=== PATIENT | female | born 1980 | race Asian ===

== ENCOUNTER 2016-06-16 04:15 | Emergency (ER) | payer SELFPAY ==
[~2016-06-16] VITALS: Ht 165.1 cm; Wt 75.7 kg
[~2016-06-16 04:15] MED LIST: AMOX TR-K CLV1 EAC2 ORAL; ATENOLOL25 MG ORAL; METFORMIN HCL500 M1 ORAL; ZESTORETIC 10-1 EAC1 PO
--- NOTE | 2016-06-16 04:37 | Emergency Room Report ---
History of Present Illness General Chief Complaint: Abdominal Pain Source: Patient Present Illness HPI Is a 36-year-old female with no significant past medical history. She presents chief complaint of right lower quadrant abdominal pain. Onset for last week but has been on and off and mouth. Tonight it became very severe. Pain is 10 out of 10 pain worse with movement. No fever or chills. No nausea no vomiting. No diarrhea. No radiation. Never had this problem before. She just started her menstrual flow. Allergies: Coded Allergies: SUMATRIPTAN (Verified Allergy, Unknown, 11/09/15) Patient History Past Medical History: see triage record, old chart reviewed Past Surgical History: none Pertinent Family History: none Last Menstrual Period: 4 days ago Now: No Immunizations: other Reviewed Nursing Documentation: PMH: Agreed, PSxH: Agreed Nursing Documentation-PMH Hx Hypertension: Yes Hx Diabetes: Yes Hx Neurological Problems: Yes - migraine Review of Systems Eye: Denies: blurred vision, eye pain ENT: Denies: ear pain, nose congestion, throat swelling Respiratory: Denies: cough, shortness of breath Cardiovascular: Denies: chest pain, palpitations Gastrointestinal: Reports: abdominal pain, Denies: diarrhea, nausea, vomiting Musculoskeletal: Denies: back pain, joint pain Skin: Denies: rash Neurological: Denies: headache, numbness Endocrine: Denies: increased thirst, increased urine Hematologic/Lymphatic: Denies: easy bruising All Other Systems: negative except mentioned in HPI Physical Exam Vital Signs Date Time Temp Pulse Resp B/P Pulse Ox O2 Delivery O2 Flow Rate FiO2 06/16/16 04:19 100.6 113 16 149/91 98 Room Air vitals with fever and tachycardia Sp02 EP Interpretation: reviewed, normal General Appearance: well appearing, alert, moderate distress - From pain Head: normocephalic, atraumatic Eyes: bilateral eye EOMI, bilateral eye PERRL ENT: hearing grossly normal, normal pharynx Neck: full range of motion, supple, no meningismus Respiratory: chest non-tender, lungs clear, normal breath sounds Cardiovascular #1: regular rate, rhythm, no murmur Gastrointestinal: normal bowel sounds, no mass, no organomegaly, no bruit, non- distended, tenderness - Right lower quadrant Musculoskeletal: back normal, gait/station normal, normal range of motion Neurologic: alert, oriented x3 Psychiatric: mood/affect normal Skin: warm/dry Medical Decision Making Diagnostic Impression: Primary Impression: Right pyosalpingitis Additional Impression: Hyperglycemia due to type 2 diabetes mellitus Qualified Codes: E11.65 - Type 2 diabetes mellitus with hyperglycemia ER Course Patient presents with abdominal pain. Pain better after Toradol and morphine. CT scan is still pending. She does have a white count. This may be secondary to infection versus stress response from pain. She said that her A1c was around 11 in February. She's been off of her metformin glipizide since then. She just got the prescription to start back on it yesterday. She said that she ate some marshmallow before coming in. Patient said that she has a history of ovarian torsion the right eye before. This lead to 3 times a day and she was admitted for sepsis at [facility]. She denies any discharge. Wide spectrum antibiotics given. I paged Dr. Herr for consultation. Laboratory Tests Test 06/16/16 04:40 White Blood Count 17.2 K/UL (4.8-10.8) H Red Blood Count 4.61 M/UL (4.20-5.40) Hemoglobin 11.3 G/DL (12.0-16.0) L Hematocrit 34.9 % (37.0-47.0) L Mean Corpuscular Volume 76 FL (80-99) L Mean Corpuscular Hemoglobin 24.4 PG (27.0-31.0) L Mean Corpuscular Hemoglobin Concent 32.3 G/DL (32.0-36.0) Red Cell Distribution Width 15.0 % (11.6-14.8) H Platelet Count 399 K/UL (150-450) Mean Platelet Volume 6.3 FL (6.5-10.1) L Neutrophils (%) (Auto) 73.6 % (45.0-75.0) Lymphocytes (%) (Auto) 18.9 % (20.0-45.0) L Monocytes (%) (Auto) 6.7 % (1.0-10.0) Eosinophils (%) (Auto) 0.4 % (0.0-3.0) Basophils (%) (Auto) 0.5 % (0.0-2.0) Urine Color Yellow Urine Appearance Slightly cloudy Urine pH 5 (4.5-8.0) Urine Specific [place] 1.015 (1.005-1.035) Urine Protein 2+ (NEGATIVE) H Urine Glucose (UA) 4+ (NEGATIVE) H Urine Ketones 1+ (NEGATIVE) H Urine Occult Blood 5+ (NEGATIVE) H Urine Nitrite Negative (NEGATIVE) Urine Bilirubin Negative (NEGATIVE) Urine Urobilinogen 1 MG/DL (0.0-1.0) H Urine Leukocyte Esterase 1+ (NEGATIVE) H Urine RBC Tntc /HPF (0 - 2) H Urine WBC 0-2 /HPF (0 - 2) Urine Squamous Epithelial Cells Moderate /LPF (NONE/OCC) H Urine Bacteria None /HPF (NONE) Urine HCG, Qualitative Negative Sodium Level 138 mEQ/L (135-145) Potassium Level 4.1 mEQ/L (3.4-4.9) Chloride Level 98 mEQ/L (98-107) Carbon Dioxide Level 23 mEQ/L (20-30) Anion Gap 17 (5-15) H Blood Urea Nitrogen 14 mg/dL (7-23) Creatinine 0.6 mg/dL (0.5-0.9) Estimat Glomerular Filtration Rate > 60 mL/min (>60) Glucose Level 333 mg/dL (74-106) H Calcium Level 9.2 mg/dL (8.6-10.2) Total Bilirubin 0.2 mg/dL (0.0-1.2) Aspartate Amino Transf (AST/SGOT) 13 U/L (5-40) Alanine Aminotransferase (ALT/SGPT) 15 U/L (3-33) Alkaline Phosphatase 105 U/L (35-104) H Total Protein 6.9 g/dL (6.6-8.7) Albumin 3.4 g/dL (3.5-5.2) L Globulin 3.5 g/dL Albumin/Globulin Ratio 0.9 (1.0-2.7) L Lipase 27 U/L (< 60) Lab Results Impression labs with leukocytosis CT/MRI/US Diagnostic Results CT/MRI/US Diagnostic Results : Imaging Test Ordered: CT abd and pelvis Impression Read by radiologist: Probable acute right pyosalpinx: The dilated, fluid-filled right fallopian tube measures up to approximately 3 cm in diameter, with mild wall thickening and hyperenhancement, and mild surrounding right pelvic fat stranding. INCIDENTAL: Unremarkable appendix; oval left ovarian cyst, measuring up to 3.6 cm; scar. Last Vital Signs Date Time Temp Pulse Resp B/P Pulse Ox O2 Delivery O2 Flow Rate FiO2 06/16/16 04:19 100.6 113 16 149/91 98 Room Air Status: improved Disposition: HOME, SELF-CARE Condition: Stable Scripts Hydrocodone/Acetaminophen 5-325* (HYDROCODONE/ACETAMINOPHEN 5-325*) 1 Each Tablet 1 TAB ORAL Q6H Y for For Pain, #20 TAB 0 Refills Prov: JOSEMANUEL ULRICH M.D. 06/16/16 Metronidazole* (FLAGYL*) 500 Mg Tablet 500 MG ORAL THREE TIMES A DAY, #42 TAB Prov: JOSEMANUEL ULRICH M.D. 06/16/16 Doxycycline Monohydrate* (DOXYCYCLINE MONOHYDRATE*) 100 Mg Capsule 100 MG ORAL Q12H, #28 CAP 0 Refills Prov: JOSEMANUEL ULRICH M.D. 06/16/16 Additional Instructions: Followup with your Dr. in one to 2 days. Return for fever, chills, nausea, vomiting, worsening pain. Return if you are not better in 12-24 hours. JOSEMANUEL ULRICH M.D. Jun 16, 2016 04:37
[2016-06-16] MEDS ORDERED: Ketorolac 30mg Inj IV ONE (04:45)
[2016-06-16] MEDS ORDERED: Morphine Sulfate 4mg/ml Inj IVP ONE ×2 (04:45→06:45)
[2016-06-16 04:46] VITALS: BP 159/104
[2016-06-16 04:49] LABS: APPEARANCE,URINE SLIGHTLY CLOUDY; KETONES,URINE 1+ (NEGATIVE); LEUKOCYTE ESTERASE ,URINE 1+ (NEGATIVE); NITRITE,URINE NEGATIVE (NEGATIVE); PH,URINE 5 (4.5-8.0); PROTEIN,URINE 2+ (NEGATIVE); UROBILINOGEN,URINE 1 MG/DL (0.0-1.0)
[2016-06-16 04:58] LABS: RBC,URINE TNTC /HPF (0 - 2); SQUAMOUS EPITHELIAL CELL,UR MODERATE /LPF (NONE/OCC); WBC,URINE 0-2 /HPF (0 - 2)
[2016-06-16 05:02] LABS: BASOPHILS % (AUTO) 0.5 % (0.0-2.0); EOSINOPHILS % (AUTO) 0.4 % (0.0-3.0); LYMPHOCYTES % (AUTO) 18.9 % (20.0-45.0); MEAN CORPUSCULAR HEMOGLOBIN 24.4 PG (27.0-31.0); MEAN CORPUSCULAR HGB CONC 32.3 G/DL (32.0-36.0); MEAN CORPUSCULAR VOLUME 76 FL (80-99); MEAN PLATELET VOLUME 6.3 FL (6.5-10.1); MONOCYTES % (AUTO) 6.7 % (1.0-10.0); NEUTROPHILS % (AUTO) 73.6 % (45.0-75.0); PLATELET COUNT 399 K/UL (150-450); RED BLOOD COUNT 4.61 M/UL (4.20-5.40); WHITE BLOOD COUNT 17.2 K/UL (4.8-10.8)
[2016-06-16 05:08] LABS: ALANINE AMINOTRANSFERASE 15 U/L (3-33); ALBUMIN/GLOBULIN RATIO 0.9 (1.0-2.7); ANION GAP 17 (5-15); ASPARTATE AMINO TRANSFERASE 13 U/L (5-40); CALCIUM 9.2 mg/dL (8.6-10.2); CARBON DIOXIDE 23 mEQ/L (20-30); CHLORIDE 98 mEQ/L (98-107); CREATININE 0.6 mg/dL (0.5-0.9); GLOMERULAR FILTRATION RATE > 60 mL/min (>60); HEMOLYSIS 2; LIPASE 27 U/L (< 60); POTASSIUM 4.1 mEQ/L (3.4-4.9); SODIUM 138 mEQ/L (135-145); TOTAL PROTEIN 6.9 g/dL (6.6-8.7)
[2016-06-16 05:58] VITALS: BP 149/94
[2016-06-16] MEDS ORDERED: Zosyn 3.375gm inj ONE (06:38)
[2016-06-16] MEDS ORDERED: HYDROCODON-ACE1 EA15 ORAL (06:42)
[2016-06-16] MEDS ORDERED: METRONIDAZOLE500 MG ORAL (06:42)
[2016-06-16] MEDS ORDERED: DOXYCYCLINE MO100 MG ORAL (06:42)
[2016-06-16] MEDS ORDERED: metroNIDAZOLE 500mg tab ORAL ONE (06:45)
[2016-06-16] MEDS ORDERED: Piperacillin/Tazobactam 3.375 GM in NS 110 ML IVPB ONE (06:45)
[2016-06-16] MEDS ORDERED: NORCO 10-325 T1 EACH ORAL (07:19)
[2016-06-16 07:23] VITALS: BP 159/98
[2016-06-16 07:45] VITALS: BP 159/98
--- NOTE | 2016-06-18 08:42 | Diagnostic Imaging Report ---
Indications: Right lower quadrant abdominal pain Technique: Continuous helical CT imaging of the abdomen and pelvis was performed with automatic exposure control following administration of nonionic IV contrast only, on a Siemens sensation [address] scanner. Axial, coronal, sagittal images were reconstructed at 5 mm slice thickness. No oral contrast was administered per requesting physician's order, despite no contraindications listed in either submitted clinical data or tech note.. CTDI volume(s): 17 mGy Total DLP: 871 mGy-cm Findings: Comparison: None Lack of oral contrast limits evaluation of gastrointestinal tract, nondilated throughout. Appendix contains some high attenuation material in its lumen, is otherwise unremarkable. No obvious mural thickening, adjacent stranding, extraluminal gas or fluid collections identified. Fluid-filled tubular structure is present in the right adnexal region and pelvic cul-de-sac, with mild mural enhancement, measuring up to 2.7 cm in diameter. Mild surrounding haziness. 3.3 cm circumscribed low attenuation/cystic structure left adnexal region. Gallbladder contracted, limiting evaluation. Liver, pancreas, spleen, adrenal glands, kidneys, unopacified ureters and urinary bladder, uterus, vascular structures, retroperitoneum, mesentery, remainder visualized abdominopelvic anatomy unremarkable. Small pleural-based linear densities in both lung bases. Disc space narrowing with marginal osteophyte formation lower thoracic spine. IMPRESSION: Unremarkable appendix aside from intraluminal contrast versus appendicolith-no evidence of acute appendicitis Right adnexal/cul-de-sac findings compatible with hydrosalpinx/pyosalpinx. NON DESTRUCTIVE TESTING INSPECTOR consultation recommended. Left adnexal cystic structure most likely physiologic ovarian. Consider pelvic ultrasound for further evaluation. Limited evaluation of gallbladder due to contraction, without obvious acute abnormality No other evidence of acute abdominopelvic disease, with limitation as described. Subtle but potentially significant abnormalities the gastrointestinal tract may be missed. Repeat CT scan with full oral and IV contrast preparation recommended for more complete evaluation, as clinically indicated This correlates with [facility] preliminary report.
== END 2016-06-16 07:45 | disposition home or self-care (01) ==
LOC: EMR 04:34 → CANBEDREQ 07:12 → EMR 07:45
DX: N70.91 Salpingitis, unspecified (principal); E11.65 Type 2 diabetes mellitus with hyperglycemia; I10 Essential (primary) hypertension; Z86.69 Personal history of other diseases of the nervous system and sense organs
CPT/HCPCS: 36415; 74177; 80053; 81003; 81025; 82962; 83690; 85025; 96360; 96374; 96375; 99284; J1885; J2270; J2405; J2543; Q9967

== ENCOUNTER 2016-09-07 08:31 | Inpatient (IN) | payer MEDICAID ==
[~2016-09-07] VITALS: Ht 165.1 cm; Wt 73.5 kg
[~2016-09-07 08:31] MED LIST changes: +DOXYCYCLINE MO100 MG ORAL; +HYDROCODON-ACE1 EA15 ORAL; +METRONIDAZOLE500 MG ORAL; +NORCO 10-325 T1 EACH ORAL
[2016-09-07 08:50] VITALS: BP 158/94
--- NOTE | 2016-09-07 08:53 | Emergency Room Report ---
History of Present Illness General Chief Complaint: Skin Rash/Abscess Source: Patient Present Illness HPI This patient states that she has a history of hydradenitis suppurativa. She states that she had some "pimples" on her face for the past few weeks. She states however over the past few days they have increased in size rapidly and become swollen and opened and. She states that the area on her right face and chin are very tender and painful. She denies fever or chills. She states she also fell down a few days ago and thinks she may have a lock in the skin of her hand. She has no other complaints. Allergies: Coded Allergies: SUMATRIPTAN (Verified Allergy, Unknown, 11/09/15) Patient History Past Medical History: see triage record, DM, HTN, migraines Social History: Reports: alcohol use, drug use - hx of drug use. States that she has stopped the drugs over the past couple weeks., smoking Last Menstrual Period: 08/16/16 Now: No : 4 Para: 2 Reviewed Nursing Documentation: PMH: Agreed, PSxH: Agreed Nursing Documentation-PMH Past Medical History: No History, Except For Hx Hypertension: Yes Hx Diabetes: Yes Hx Neurological Problems: Yes - migraine Review of Systems All Other Systems: negative except mentioned in HPI Physical Exam Vital Signs Date Time Temp Pulse Resp B/P Pulse Ox O2 Delivery O2 Flow Rate FiO2 09/07/16 08:36 97.7 111 20 162/99 100 Room Air Sp02 EP Interpretation: reviewed, normal General Appearance: no apparent distress, alert, GCS 15, non-toxic Head: normocephalic, atraumatic Eyes: bilateral eye PERRL, bilateral eye normal inspection ENT: hearing grossly normal, normal pharynx, no angioedema, normal voice Neck: full range of motion, supple/symm/no masses Respiratory: chest non-tender, lungs clear, normal breath sounds, speaking full sentences Cardiovascular #1: regular rate, rhythm, no edema Gastrointestinal: normal bowel sounds, non tender, soft, non-distended, no guarding, no rebound Rectal: deferred Musculoskeletal: back normal, gait/station normal, normal range of motion, other - R. wrist w/ erythema and small draining abscess on anterior R. wrist w/ mild surrounding erythema Neurologic: alert, oriented x3, responsive, motor strength/tone normal, sensory intact, speech normal Psychiatric: judgement/insight normal, memory normal, mood/affect normal, no suicidal/homicidal ideation Skin: normal color, warm/dry, well hydrated, other - Yellow crusting ulcers with swelling and erythema over R. lateral face and chin. Medical Decision Making Diagnostic Impression: Primary Impression: Facial cellulitis Additional Impression: Hand abscess ER Course This patient's facial cellulitis and a small hand cellulitis with a small pustule. The patient also is poorly controlled diabetes. Patient was given IV fluids and broad-spectrum antibiotics. The patient will need to be admitted for further IV antibiotics and further evaluation and treatment. Labs Test 09/07/16 08:30 09/07/16 09:30 Hemoglobin A1c 9.8 % (< 6.0) Triglycerides Level 87 mg/dL (< 150) Cholesterol Level 144 mg/dL (< 200) LDL Cholesterol 74 mg/dL (60-99) HDL Cholesterol 53 mg/dL (> 60) Cholesterol/HDL Ratio 2.7 (3.3-4.4) White Blood Count 13.4 K/UL (4.8-10.8) Red Blood Count 4.75 M/UL (4.20-5.40) Hemoglobin 11.5 G/DL (12.0-16.0) Hematocrit 37.1 % (37.0-47.0) Mean Corpuscular Volume 78 FL (80-99) Mean Corpuscular Hemoglobin 24.2 PG (27.0-31.0) Mean Corpuscular Hemoglobin Concent 31.0 G/DL (32.0-36.0) Red Cell Distribution Width 15.3 % (11.6-14.8) Platelet Count 388 K/UL (150-450) Mean Platelet Volume 6.3 FL (6.5-10.1) Neutrophils (%) (Auto) 76.3 % (45.0-75.0) Lymphocytes (%) (Auto) 16.5 % (20.0-45.0) Monocytes (%) (Auto) 5.3 % (1.0-10.0) Eosinophils (%) (Auto) 1.2 % (0.0-3.0) Basophils (%) (Auto) 0.6 % (0.0-2.0) Urine Color Pale yellow Urine Appearance Clear Urine pH 7 (4.5-8.0) Urine Specific [place] 1.010 (1.005-1.035) Urine Protein Negative (NEGATIVE) Urine Glucose (UA) 4+ (NEGATIVE) Urine Ketones Negative (NEGATIVE) Urine Occult Blood Negative (NEGATIVE) Urine Nitrite Negative (NEGATIVE) Urine Bilirubin Negative (NEGATIVE) Urine Urobilinogen Normal MG/DL (0.0-1.0) Urine Leukocyte Esterase 1+ (NEGATIVE) Urine RBC 2-4 /HPF (0 - 2) Urine WBC 2-4 /HPF (0 - 2) Urine Squamous Epithelial Cells Many /LPF (NONE/OCC) Urine Bacteria Few /HPF (NONE) Sodium Level 132 mEQ/L (135-145) Potassium Level 4.2 mEQ/L (3.4-4.9) Chloride Level 91 mEQ/L (98-107) Carbon Dioxide Level 27 mEQ/L (20-30) Anion Gap 14 (5-15) Blood Urea Nitrogen 17 mg/dL (7-23) Creatinine 0.6 mg/dL (0.5-0.9) Estimat Glomerular Filtration Rate > 60 mL/min (>60) Glucose Level 297 mg/dL (74-106) Lactic Acid Level 1.90 mmol/L (0.66-2.22) Calcium Level 9.1 mg/dL (8.6-10.2) Total Bilirubin 0.4 mg/dL (0.0-1.2) Aspartate Amino Transf (AST/SGOT) 12 U/L (5-40) Alanine Aminotransferase (ALT/SGPT) 16 U/L (3-33) Alkaline Phosphatase 171 U/L (35-104) Total Creatine Kinase 44 U/L (26-140) Creatine Kinase MB < 1.5 ng/mL (< 3.8) Creatine Kinase MB Relative Index Total Protein 7.4 g/dL (6.6-8.7) Albumin 3.8 g/dL (3.5-5.2) Globulin 3.6 g/dL Albumin/Globulin Ratio 1.0 (1.0-2.7) Last Vital Signs Date Time Temp Pulse Resp B/P Pulse Ox O2 Delivery O2 Flow Rate FiO2 09/07/16 08:36 97.7 111 20 162/99 100 Room Air Disposition: ADMITTED INPATIENT Condition: Serious JESSICA GRAMAJO D.O. Sep 07, 2016 08:53
[2016-09-07] MEDS ORDERED: NS 1000ml 2,200 ML IVLG ONE (09:15)
[2016-09-07] MEDS ORDERED: Vancomycin 1 GM in NS 275 ML IV ONE (09:15)
[2016-09-07] MEDS ORDERED: Vancomycin 1gm inj IVPB ONE (09:47)
[2016-09-07 09:55] LABS: BASOPHILS % (AUTO) 0.6 % (0.0-2.0); EOSINOPHILS % (AUTO) 1.2 % (0.0-3.0); LYMPHOCYTES % (AUTO) 16.5 % (20.0-45.0); MEAN CORPUSCULAR HEMOGLOBIN 24.2 PG (27.0-31.0); MEAN CORPUSCULAR VOLUME 78 FL (80-99); MEAN PLATELET VOLUME 6.3 FL (6.5-10.1); MONOCYTES % (AUTO) 5.3 % (1.0-10.0); NEUTROPHILS % (AUTO) 76.3 % (45.0-75.0); PLATELET COUNT 388 K/UL (150-450); RED BLOOD COUNT 4.75 M/UL (4.20-5.40); RED CELL DISTRIBUTION WIDTH 15.3 % (11.6-14.8); WHITE BLOOD COUNT 13.4 K/UL (4.8-10.8)
[2016-09-07 09:58] LABS: APPEARANCE,URINE CLEAR; KETONES,URINE NEGATIVE (NEGATIVE); LEUKOCYTE ESTERASE ,URINE 1+ (NEGATIVE); NITRITE,URINE NEGATIVE (NEGATIVE); PH,URINE 7 (4.5-8.0); PROTEIN,URINE NEGATIVE (NEGATIVE); UROBILINOGEN,URINE NORMAL MG/DL (0.0-1.0)
[2016-09-07 10:03] LABS: ALANINE AMINOTRANSFERASE 16 U/L (3-33); ANION GAP 14 (5-15); ASPARTATE AMINO TRANSFERASE 12 U/L (5-40); CALCIUM 9.1 mg/dL (8.6-10.2); CARBON DIOXIDE 27 mEQ/L (20-30); CHLORIDE 91 mEQ/L (98-107); CREATININE 0.6 mg/dL (0.5-0.9); GLOMERULAR FILTRATION RATE > 60 mL/min (>60); HEMOLYSIS 2; POTASSIUM 4.2 mEQ/L (3.4-4.9); SODIUM 132 mEQ/L (135-145); TOTAL PROTEIN 7.4 g/dL (6.6-8.7)
[2016-09-07 10:14] LABS: BACTERIA,URINE FEW /HPF; SQUAMOUS EPITHELIAL CELL,UR MANY /LPF (NONE/OCC)
[2016-09-07 10:21] LABS: CKMB < 1.5 ng/mL (< 3.8)
[2016-09-07 11:09] VITALS: BP 165/91
[2016-09-07] MEDS ORDERED: Lisinopril 10mg tab ORAL ONE (11:45)
[2016-09-07 12:10] VITALS: BP 167/88
--- NOTE | 2016-09-07 12:41 | Diagnostic Imaging Report ---
Clinical Indication:Pain, possible foreign body Technique: 3 views of the right wrist Comparison: None Findings: No acute fractures. No dislocations. The joint spaces are preserved. There is mild ulnar minus variance. No radiopaque foreign body Impression: No acute process. Negative for radiopaque foreign body
[2016-09-07 13:42] VITALS: BP 158/71
[2016-09-07] MEDS: Heparin 5000 units/ml inj SUBQ SCH ×2 (15:00→21:11)
[2016-09-07 15:13] LABS: CHOLESTEROL/HDL RATIO 2.7 (3.3-4.4)
[2016-09-07 15:14] LABS: HEMOGLOBIN A1C 9.8 % (< 6.0)
[2016-09-07 15:23] LABS: THYROID STIMULATING HORMONE 1.37 uIU/mL (0.300-4.500)
[2016-09-07 16:55] VITALS: BP 158/90
[2016-09-07] MEDS: metFORMIN 500mg tab ORAL SCH (17:35)
[2016-09-07 20:00] VITALS: BP 137/98
[2016-09-07] MEDS ORDERED: Vancomycin 1250mg/D5W 275ml IVPB ONE ×2 (22:00)
--- NOTE | 2016-09-08 01:36 | Wound Care Consultation ---
Wound Assessment Wound Assessment #1: Wound Number: #1 Wound Present on Admission: Yes New Wound: No Status Change of Wound: No Wound Location Body Site Modif: right Wound Location Body Site: face - extending to cheek Wound Type: abscess - cellulitis Amelia Test: Does not Amelia Wound Thickness: Full Thickness Wound Length: 6.0 Wound Width: 8.0 Wound Depth: utd Percent of Wound [place]/Red: 50 Percent of Wound Bed Yellow/Wh: 50 - noted yellow crust dried serum to skin Wound Drainage Description: Serosanguineous, Faint yellow Wound Drainage Amount: Moderate Wound Drainage Odor: None/Absent Tissue Surrounding Wound: Erythemic Wound General Appearance: Reddened - noted area with swelling. Wound Assessment #2: Wound Number: #2 Wound Present on Admission: Yes New Wound: No Status Change of Wound: No Wound Location Body Site Modif: mid Wound Location Body Site: other - chin Wound Type: abscess - cellulitis Amelia Test: Does not Amelia Wound Thickness: Full Thickness Wound Length: 3.0 Wound Width: 3.0 Wound Depth: utd Percent of Wound Bed Yellow/Wh: 100 Wound Drainage Description: Serosanguineous, Faint yellow Wound Drainage Amount: Scant Wound Drainage Odor: None/Absent Tissue Surrounding Wound: Erythemic Wound General Appearance: Reddened Wound Comment #1 right side of face extending to cheek abscess/ cellulitis. #2 mid chin abscess /cellulitis. recommendation -FOLLOW WITH MD FOR POSSIBLE I&D. - Local wound care as ordered. -keep area clean and dry. -Optimize nutrition. -Turn and reposition. -Offload affected sites. -Assess and notify MD for any change of condition to skin noted. JANIE MENDOZA Sep 08, 2016 01:36
[2016-09-08 04:00] VITALS: BP 147/87
[2016-09-08 08:00] VITALS: BP 142/86
--- NOTE | 2016-09-08 08:01 | General Progress Note ---
Assessment/Plan Status: stable Assessment/Plan 1- Sepsis 2- Cellulitis,Facial 3- DM-uncontrolled 4- Substance abuse Plan: ID-Dr Carrasquillo will monitor on antibiotic Subjective ROS Limited/Unobtainable: No Constitutional: Reports: no symptoms Respiratory: Reports: no symptoms Allergies: Coded Allergies: SUMATRIPTAN (Verified Allergy, Unknown, 11/09/15) Objective Last 24 Hour Vital Signs Date Time Temp Pulse Resp B/P Pulse Ox O2 Delivery O2 Flow Rate FiO2 09/07/16 20:00 97.8 81 18 137/98 99 Room Air 09/07/16 18:40 97.7 09/07/16 16:55 97.7 89 20 158/90 97 Room Air 09/07/16 13:42 98.9 111 19 158/71 100 Room Air 09/07/16 13:12 99.1 107 19 194/114 100 Room Air 09/07/16 12:21 111 194/114 09/07/16 12:21 194/114 09/07/16 12:10 99.1 107 19 167/88 100 Room Air 09/07/16 11:09 98.9 114 21 165/91 100 Room Air 09/07/16 08:50 97.6 108 19 158/94 100 Room Air 09/07/16 08:36 97.7 111 20 162/99 100 Room Air Intake and Output 09/07/16 09/08/16 19:00 07:00 Intake Total 2743.3 ml Balance 2743.3 ml Intake Oral 360 ml IV Total 2383.3 ml # Bowel Movements 1 Laboratory Tests 09/07/16 08:30: Hemoglobin A1c 9.8H, Triglycerides Level 87, Cholesterol Level 144, LDL Cholesterol 74, HDL Cholesterol 53, Cholesterol/HDL Ratio 2.7L, Thyroid Stimulating Hormone (TSH) 1.370 09/07/16 09:30: White Blood Count 13.4H, Red Blood Count 4.75, Hemoglobin 11.5L, Hematocrit 37.1 , Mean Corpuscular Volume 78L, Mean Corpuscular Hemoglobin 24.2L, Mean Corpuscular Hemoglobin Concent 31.0L, Red Cell Distribution Width 15.3H, Platelet Count 388, Mean Platelet Volume 6.3L, Neutrophils (%) (Auto) 76.3H, Lymphocytes (%) (Auto) 16.5L, Monocytes (%) (Auto) 5.3, Eosinophils (%) (Auto) 1.2, Basophils (%) (Auto) 0.6, Urine Color Pale yellow, Urine Appearance Clear, Urine pH 7, Urine Specific [place] 1.010, Urine Protein Negative, Urine Glucose (UA) 4+H, Urine Ketones Negative, Urine Occult Blood Negative, Urine Nitrite Negative, Urine Bilirubin Negative, Urine Urobilinogen Normal, Urine Leukocyte Esterase 1+H, Urine RBC 2-4H, Urine WBC 2-4, Urine Squamous Epithelial Cells ManyH, Urine Bacteria Few, Sodium Level 132L, Potassium Level 4.2, Chloride Level 91L, Carbon Dioxide Level 27, Anion Gap 14, Blood Urea Nitrogen 17, Creatinine 0.6, Estimat Glomerular Filtration Rate > 60, Glucose Level 297H, Lactic Acid Level 1.90, Calcium Level 9.1, Total Bilirubin 0.4, Aspartate Amino Transf (AST/SGOT) 12, Alanine Aminotransferase (ALT/SGPT) 16, Alkaline Phosphatase 171H, Total Creatine Kinase 44, Creatine Kinase MB < 1.5, Creatine Kinase MB Relative Index , Total Protein 7.4, Albumin 3.8, Globulin 3.6, Albumin /Globulin Ratio 1.0 Height (Feet): 5 Height (Inches): 5.00 Weight (Pounds): 162 General Appearance: no apparent distress EENT: other - diffuse edema and redness in right sided-face. no area of flunctuation to suggest particular abcess formation Neck: supple Cardiovascular: normal rate Respiratory/Chest: lungs clear Abdomen: soft Extremities: non-tender Neurologic: malware analyst II-XII grossly normal Tj Baum MD Sep 08, 2016 08:01
--- NOTE | 2016-09-08 08:09 | History & Physical ---
History and Physical History & Physicial seen and examined. Dictation completed. Tj Baum MD Sep 08, 2016 08:09
[2016-09-08] MEDS ORDERED: ABILIFY10 MG ORAL (08:25)
[2016-09-08] MEDS ORDERED: ATIVAN1 MG ORAL (08:25)
[2016-09-08] MEDS ORDERED: ARIPiprazole 10mg tab ORAL SCH (09:00)
[2016-09-08] MEDS: Lisinopril 10mg tab ORAL SCH (09:12)
[2016-09-08] MEDS: metFORMIN 500mg tab ORAL SCH ×2 (09:12→17:18)
[2016-09-08] MEDS: Atenolol 25mg tab ORAL SCH (09:12)
[2016-09-08] MEDS: Heparin 5000 units/ml inj SUBQ SCH ×2 (09:20→20:55)
[2016-09-08] MEDS ORDERED: Vancomycin 1gm/D5W 275ml IVPB SCH ×2 (10:00)
[2016-09-08 11:02] LABS: BASOPHILS % (AUTO) 0.9 % (0.0-2.0); EOSINOPHILS % (AUTO) 2.2 % (0.0-3.0); LYMPHOCYTES % (AUTO) 30.4 % (20.0-45.0); MEAN CORPUSCULAR HEMOGLOBIN 24.4 PG (27.0-31.0); MEAN CORPUSCULAR HGB CONC 30.9 G/DL (32.0-36.0); MEAN CORPUSCULAR VOLUME 79 FL (80-99); MEAN PLATELET VOLUME 6.4 FL (6.5-10.1); MONOCYTES % (AUTO) 9.9 % (1.0-10.0); NEUTROPHILS % (AUTO) 56.6 % (45.0-75.0); PLATELET COUNT 446 K/UL (150-450); RED BLOOD COUNT 5.23 M/UL (4.20-5.40); RED CELL DISTRIBUTION WIDTH 15.8 % (11.6-14.8); WHITE BLOOD COUNT 9.8 K/UL (4.8-10.8)
[2016-09-08 11:23] LABS: ALANINE AMINOTRANSFERASE 15 U/L (3-33); ALBUMIN/GLOBULIN RATIO 0.9 (1.0-2.7); ASPARTATE AMINO TRANSFERASE 13 U/L (5-40); CALCIUM 9.6 mg/dL (8.6-10.2); CARBON DIOXIDE 28 mEQ/L (20-30); CREATININE 0.7 mg/dL (0.5-0.9); GLOMERULAR FILTRATION RATE > 60 mL/min (>60); HEMOLYSIS 3; TOTAL PROTEIN 7.8 g/dL (6.6-8.7)
[2016-09-08 11:24] LABS: ANION GAP 13 (5-15); CHLORIDE 92 mEQ/L (98-107); POTASSIUM 4.1 mEQ/L (3.4-4.9); SODIUM 133 mEQ/L (135-145)
[2016-09-08 11:25] LABS: HEMOLYSIS 3; IRON 31 ug/dL (37-145); TOTAL IRON BINDING CAPACITY 366 ug/dL (250-400)
[2016-09-08] MEDS ORDERED: NovoLOG Insulin Flexpen SUBQ SCH (11:50)
[2016-09-08] MEDS: NovoLOG Insulin Flexpen SUBQ SCH ×2 (12:43→17:16)
--- NOTE | 2016-09-08 13:45 | History and Physical Report ---
DATE OF ADMISSION: 09/07/2016 SOURCE OF INFORMATION: The patient and EMR. HISTORY OF PRESENT ILLNESS: The patient is a 36-year-old female. She has prior history of of the sweating glands, however at this time after the incident in the right side of the face increasing and swelling and the spread of the redness and edema in the right side of the face. She denied any shortness of breath. Denied any swelling of the tongue. Denies any blurry vision. Denies any severe headaches. REVIEW OF SYSTEMS: All 12 points of review of systems have been reviewed. Pertinent positives and negatives are mentioned as above. PAST SURGICAL HISTORY: Two C-sections. MEDICATIONS: Home medications, Abilify. ALLERGIES: Sumatriptan. SOCIAL HISTORY: The patient is a mother of 2. 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 FAMILY HISTORY: Reviewed noncontributory. PHYSICAL EXAMINATION: VITAL SIGNS: Blood pressure 160/90, temperature 99.1 degrees, pulse rate 110 and pulse oximetry 100% on room air. HEAD AND NECK: Atraumatic and normocephalic. Head and neck - soft tissue demonstrate diffuse warmness and swelling in the whole face, predominantly on the right side. CHEST: Clear to auscultation. HEART: S1 and S2. Regular rate and rhythm. ABDOMEN: Soft. No organomegaly. MUSCULOSKELETAL: No gross focal motor deficit. LABORATORY AND DIAGNOSTIC DATA: Labs dated 09/07/2016 showed WBC of 13.4, hemoglobin 11.5, and platelets 388,000. Sodium 132, potassium 4.2, BUN 17, and creatinine 0.6. AST and ALT are normal. Hemoglobin A1c 9.8. ASSESSMENT AND PLAN: 1. Sepsis. 2. Right-sided facial cellulitis. 3. Diabetes type 2, new diagnosis. 4. Psychiatric disorder. 5. Tobacco smoking. 6. Substance abuse . PLAN OF CARE: We will continue with the vancomycin. Continue with the diabetic medication. Infectious Disease, Dr. Carrasquillo, was consulted. Tj Baum M.D. DR: Blanca JOB#: [id number] CC:
[2016-09-08 16:00] VITALS: BP 133/82
[2016-09-08] MEDS: LORazepam 1mg tab ORAL PRN ×2 (17:37→23:36)
[2016-09-08] MEDS ORDERED: NS 275ml ONE (18:10)
[2016-09-08] MEDS ORDERED: Tubing IV Secondary IV ONE (18:10)
[2016-09-08 20:00] VITALS: BP 121/80
--- NOTE | 2016-09-08 22:18 | Consultation ---
Consult Note Consult Note [id number] MERCEDEZ BREWER M.D. Sep 08, 2016 22:18
[2016-09-08] MEDS: Vancomycin 1gm/D5W 275ml IVPB SCH ×2 (22:59)
--- NOTE | 2016-09-08 23:15 | Consultation ---
DATE OF CONSULTATION: 09/08/2016 INFECTIOUS DISEASE CONSULTATION CONSULTING PHYSICIAN: Lawrence Carrasquillo M.D REFERRING PHYSICIAN: Tj Baum M.D. REASON FOR CONSULTATION: Evaluation of the patient with facial cellulitis, antibiotic management. HISTORY OF PRESENT ILLNESS: The patient is a 36-year-old female with multiple medical problems as listed below who has been admitted to this medical center because of swelling and abscess over the face. The patient has chronic folliculitis and acne on the face, but the patient has been manipulating and because of that, her condition got worse and now has been admitted here for Infectious Disease evaluation for facial cellulitis. PAST MEDICAL HISTORY: 1. Hypertension. 2. Diabetes. 3. History of hydradenitis. 4. History of . ALLERGIES: No allergies to antibiotics. SOCIAL HISTORY: History of drug abuse in the past. FAMILY HISTORY: Noncontributory. REVIEW OF SYSTEMS: A 10-point was done and except what is mentioned above has been negative. MEDICATIONS: IV vancomycin. PHYSICAL EXAMINATION: VITAL SIGNS: Temperature 97.1, blood pressure 121/80, pulse 89, and respiratory rate 18. HEENT: Mild pale conjunctivae. No icterus. NECK: No lymphadenopathy. CHEST: Clear. HEART: S1 and S2. ABDOMEN: Soft. SKIN: The patient has ulceration over the right side of the face, chin, and back of the neck. There is swelling and edema on the right face. No purulent discharge. NEUROLOGIC: Awake and alert. LABORATORY DATA: White blood cells 9.8, at the time of admission was 12.4. Platelets 146,000. UA unremarkable. BUN 10 and creatinine 0.7. Blood culture is pending. ASSESSMENT: The patient is a 36-year-old female with, 1. Right-sided facial and neck abscess, acne, right facial cellulitis due to manipulation of the above lesions. 2. Post leukocytosis. PLAN: 1. We will continue the patient on IV vancomycin. 2. Monitor CBC. 3. Monitor BMP. 4. Blood culture. 5. We will send wound culture. 6. Based on the patient's clinical course and labs, we will give further recommendation. Thank you, Dr. Baum, for allowing me to participate in the care of the patient. I will follow the patient with you during this hospitalization. Lawrence Carrasquillo M.D. DR: SANDRA JOB#: [id number] CC:
[2016-09-09] VITALS: BP 122/83
[2016-09-09 04:00] VITALS: BP 140/85
[2016-09-09] MEDS: Vancomycin 1gm/D5W 275ml IVPB SCH ×6 (06:18→21:07)
[2016-09-09] MEDS: NovoLOG Insulin Flexpen SUBQ SCH ×4 (06:23→21:28)
[2016-09-09 08:00] VITALS: BP 147/91
[2016-09-09 08:16] LABS: EOSINOPHILS % (AUTO) 2.4 % (0.0-3.0); LYMPHOCYTES % (AUTO) 32.3 % (20.0-45.0); MEAN CORPUSCULAR HEMOGLOBIN 24.9 PG (27.0-31.0); MEAN CORPUSCULAR HGB CONC 31.5 G/DL (32.0-36.0); MEAN CORPUSCULAR VOLUME 79 FL (80-99); NEUTROPHILS % (AUTO) 57.3 % (45.0-75.0); PLATELET COUNT 392 K/UL (150-450); RED BLOOD COUNT 4.76 M/UL (4.20-5.40); RED CELL DISTRIBUTION WIDTH 15.5 % (11.6-14.8); WHITE BLOOD COUNT 8.9 K/UL (4.8-10.8)
[2016-09-09 08:36] LABS: ALANINE AMINOTRANSFERASE 13 U/L (3-33); ALBUMIN/GLOBULIN RATIO 0.9 (1.0-2.7); ANION GAP 14 (5-15); ASPARTATE AMINO TRANSFERASE 11 U/L (5-40); CALCIUM 9.5 mg/dL (8.6-10.2); CARBON DIOXIDE 27 mEQ/L (20-30); CHLORIDE 91 mEQ/L (98-107); CREATININE 0.6 mg/dL (0.5-0.9); GLOMERULAR FILTRATION RATE > 60 mL/min (>60); HEMOLYSIS 0; POTASSIUM 4.1 mEQ/L (3.4-4.9); SODIUM 132 mEQ/L (135-145); TOTAL PROTEIN 6.8 g/dL (6.6-8.7)
[2016-09-09] MEDS: Atenolol 25mg tab ORAL SCH (08:40)
[2016-09-09] MEDS: metFORMIN 500mg tab ORAL SCH ×2 (08:40→18:48)
[2016-09-09] MEDS: Lisinopril 10mg tab ORAL SCH (08:40)
[2016-09-09] MEDS: Heparin 5000 units/ml inj SUBQ SCH ×2 (08:44→21:17)
[2016-09-09] MEDS ORDERED: ARIPiprazole 10mg tab ORAL ONE (08:45)
--- NOTE | 2016-09-09 09:16 | Infectious Diseases Prog Note ---
Assessment/Plan Assessment/Plan ASSESSMENT: 36 y/o female with: // Facial cellulitis / impetigo - improving, culture pending - h/o chronic folliculitis, acne, hidradenitis with manipulation // Leukocytosis - resolved, afebrile // DM2 // Psych disorder // h/o polysubstance abuse // No ABX allergies // Full Code PLAN: - continue IV vancomycin d# 2 / 7-10, add clindamycin d# 1, transition to PO soon - f/u cultures - monitor CBC, temperatures - monitor BMP - wound care Subjective Allergies: Coded Allergies: SUMATRIPTAN (Verified Allergy, Unknown, 11/09/15) Subjective remains afebrile, improving cultures NGTD Objective Vital Signs Last 24 Hour Vital Signs Date Time Temp Pulse Resp B/P Pulse Ox O2 Delivery O2 Flow Rate FiO2 09/09/16 08:40 147/91 09/09/16 08:40 93 141/91 09/09/16 04:00 97.7 90 18 140/85 100 Room Air 09/09/16 00:00 97.5 90 18 122/83 100 Room Air 09/08/16 20:00 97.1 89 18 121/80 100 Room Air 09/08/16 16:00 98.1 78 18 133/82 99 Room Air 09/08/16 09:12 142/86 09/08/16 09:12 90 142/86 Height (Feet): 5 Height (Inches): 5.00 Weight (Pounds): 162 General Appearance: no acute distress HEENT: other - right facial, chin lesions improving Respiratory/Chest: no respiratory distress Cardiovascular: normal rate, regular rhythm Abdomen: normal bowel sounds, soft, non tender, non distended Microbiology Date/Time Source Procedure Growth Status 09/07/16 09:30 Blood Blood Culture - Preliminary NO GROWTH AFTER 24 HOURS Resulted 09/07/16 09:30 Blood Blood Culture - Preliminary NO GROWTH AFTER 24 HOURS Resulted Laboratory Tests Test 09/08/16 09:50 09/08/16 20:55 09/09/16 07:15 White Blood Count 9.8 K/UL (4.8-10.8) 8.9 K/UL (4.8-10.8) Red Blood Count 5.23 M/UL (4.20-5.40) 4.76 M/UL (4.20-5.40) Hemoglobin 12.8 G/DL (12.0-16.0) 11.9 G/DL (12.0-16.0) L Hematocrit 41.4 % (37.0-47.0) 37.8 % (37.0-47.0) Mean Corpuscular Volume 79 FL (80-99) L 79 FL (80-99) L Mean Corpuscular Hemoglobin 24.4 PG (27.0-31.0) L 24.9 PG (27.0-31.0) L Mean Corpuscular Hemoglobin Concent 30.9 G/DL (32.0-36.0) L 31.5 G/DL (32.0-36.0) L Red Cell Distribution Width 15.8 % (11.6-14.8) H 15.5 % (11.6-14.8) H Platelet Count 446 K/UL (150-450) 392 K/UL (150-450) Mean Platelet Volume 6.4 FL (6.5-10.1) L 6.0 FL (6.5-10.1) L Neutrophils (%) (Auto) 56.6 % (45.0-75.0) 57.3 % (45.0-75.0) Lymphocytes (%) (Auto) 30.4 % (20.0-45.0) 32.3 % (20.0-45.0) Monocytes (%) (Auto) 9.9 % (1.0-10.0) 7.0 % (1.0-10.0) Eosinophils (%) (Auto) 2.2 % (0.0-3.0) 2.4 % (0.0-3.0) Basophils (%) (Auto) 0.9 % (0.0-2.0) 1.0 % (0.0-2.0) Sodium Level 133 mEQ/L (135-145) L 132 mEQ/L (135-145) L Potassium Level 4.1 mEQ/L (3.4-4.9) 4.1 mEQ/L (3.4-4.9) Chloride Level 92 mEQ/L (98-107) L 91 mEQ/L (98-107) L Carbon Dioxide Level 28 mEQ/L (20-30) 27 mEQ/L (20-30) Anion Gap 13 (5-15) 14 (5-15) Blood Urea Nitrogen 10 mg/dL (7-23) 14 mg/dL (7-23) Creatinine 0.7 mg/dL (0.5-0.9) 0.6 mg/dL (0.5-0.9) Estimat Glomerular Filtration Rate > 60 mL/min (>60) > 60 mL/min (>60) Glucose Level 403 mg/dL (74-106) #H 390 mg/dL (74-106) H Calcium Level 9.6 mg/dL (8.6-10.2) 9.5 mg/dL (8.6-10.2) Iron Level 31 ug/dL (37-145) L Total Iron Binding Capacity 366 ug/dL (250-400) Percent Iron Saturation 8 % (15-50) L Unsaturated Iron Binding 335 ug/dL (112-346) Total Bilirubin 0.3 mg/dL (0.0-1.2) 0.3 mg/dL (0.0-1.2) Aspartate Amino Transf (AST/SGOT) 13 U/L (5-40) 11 U/L (5-40) Alanine Aminotransferase (ALT/SGPT) 15 U/L (3-33) 13 U/L (3-33) Alkaline Phosphatase 196 U/L (35-104) H 165 U/L (35-104) H Total Protein 7.8 g/dL (6.6-8.7) 6.8 g/dL (6.6-8.7) Albumin 3.7 g/dL (3.5-5.2) 3.3 g/dL (3.5-5.2) L Globulin 4.1 g/dL 3.5 g/dL Albumin/Globulin Ratio 0.9 (1.0-2.7) L 0.9 (1.0-2.7) L Opiates Screen Pending Oxycodone Level Pending Blood Methadone Screen Pending Blood Propoxyphene Screen Pending Blood Barbiturates Screen Pending Phencyclidine (PCP) Screen Pending Amphetamines Screen Pending Benzodiazepines Screen Pending Blood Cocaine/Metabolite Screen Pending Marijuana (THC) Screen Pending Blood Drug Screen Comment Pending Vancomycin Level Trough 5.9 ug/mL (5.0-12.0) Current Medications Medications (Trade) Dose Ordered Sig/Darlene Route PRN Reason Start Time Stop Time Status Last Admin Dose Admin Acetaminophen (Tylenol) 650 mg Q6H PRN ORAL Mild Pain/Temp > 100.5 09/07/16 14:15 10/07/16 14:14 09/07/16 17:41 Aripiprazole (Abilify) 10 mg QHS ORAL 09/10/16 21:00 10/10/16 20:59 Atenolol (Tenormin) 25 mg DAILY ORAL 09/08/16 09:00 10/08/16 08:59 09/09/16 08:40 Dextrose STAT PRN IV Hypoglycemia 09/08/16 13:00 10/08/16 12:59 Heparin Sodium (Porcine) (Heparin 5000 units/ml) 5,000 units EVERY 12 HOURS SUBQ 09/07/16 15:00 10/07/16 14:59 09/09/16 08:44 Hydrochlorothiazide (Hydrodiuril) 12.5 mg DAILY ORAL 09/08/16 09:00 10/08/16 08:59 09/09/16 08:39 Insulin Aspart (NovoLOG) BEFORE MEALS AND HS SUBQ 09/08/16 16:30 10/08/16 16:29 09/09/16 06:23 Lisinopril (Zestril) 10 mg DAILY ORAL 09/08/16 09:00 10/08/16 08:59 09/09/16 08:40 Lorazepam (Ativan) 1 mg THREE TIMES A DAY PRN ORAL For Anxiety 09/08/16 09:00 09/15/16 08:59 09/08/16 23:36 Metformin HCl (Glucophage) 500 mg TWICE A DAY ORAL 09/07/16 18:00 10/07/16 17:59 09/09/16 08:40 Nicotine (Nicoderm) 1 patch Q24H TDERMAL 09/08/16 09:00 10/08/16 08:59 09/09/16 08:40 Vancomycin HCl (Vanco rx to dose) 1 ea DAILY PRN MISC Per rx protocol 09/07/16 14:15 10/07/16 14:14 Vancomycin HCl/ Dextrose (Vancomycin/D5W) 275 ml @ 183.708 mls/hr Q8HR IVPB 09/08/16 22:00 09/13/16 21:59 09/09/16 06:18 LOUISA MIGUEL Sep 09, 2016 09:16
[2016-09-09] MEDS: Clindamycin 600mg 50 ML IV SCH ×2 (10:33→18:49)
[2016-09-09 12:00] VITALS: BP 130/86
--- NOTE | 2016-09-09 13:17 | Internal Med Progress Note ---
Subjective Date of Service: Sep 09, 2016 Physician Name David Hyman Attending Physician Tj Baum MD Current Medications Medications (Trade) Dose Ordered Sig/Darlene Route PRN Reason Start Time Stop Time Status Last Admin Dose Admin Acetaminophen (Tylenol) 650 mg Q6H PRN ORAL Mild Pain/Temp > 100.5 09/07/16 14:15 10/07/16 14:14 09/07/16 17:41 Aripiprazole 10 mg 10 mg QHS ORAL 09/10/16 21:00 10/10/16 20:59 Atenolol (Tenormin) 25 mg DAILY ORAL 09/08/16 09:00 10/08/16 08:59 09/09/16 08:40 Clindamycin HCl/ Dextrose (Cleocin 600mg) 50 ml @ 100 mls/hr Q8H IV 09/09/16 11:00 09/16/16 10:59 09/09/16 10:33 Dextrose STAT PRN IV Hypoglycemia 09/08/16 13:00 10/08/16 12:59 Heparin Sodium (Porcine) (Heparin 5000 units/ml) 5,000 units EVERY 12 HOURS SUBQ 09/07/16 15:00 10/07/16 14:59 09/09/16 08:44 Hydrochlorothiazide (Hydrodiuril) 12.5 mg DAILY ORAL 09/08/16 09:00 10/08/16 08:59 09/09/16 08:39 Insulin Aspart (NovoLOG) BEFORE MEALS AND HS SUBQ 09/08/16 16:30 10/08/16 16:29 09/09/16 12:35 Lisinopril (Zestril) 10 mg DAILY ORAL 09/08/16 09:00 10/08/16 08:59 09/09/16 08:40 Lorazepam (Ativan) 1 mg THREE TIMES A DAY PRN ORAL For Anxiety 09/08/16 09:00 09/15/16 08:59 09/08/16 23:36 Metformin HCl (Glucophage) 500 mg TWICE A DAY ORAL 09/07/16 18:00 10/07/16 17:59 09/09/16 08:40 Nicotine (Nicoderm) 1 patch Q24H TDERMAL 09/08/16 09:00 10/08/16 08:59 09/09/16 08:40 Vancomycin HCl (Vanco rx to dose) 1 ea DAILY PRN MISC Per rx protocol 09/07/16 14:15 10/07/16 14:14 Vancomycin HCl/ Dextrose (Vancomycin/D5W) 275 ml @ 183.708 mls/hr Q8HR IVPB 09/08/16 22:00 09/13/16 21:59 09/09/16 06:18 Allergies: Coded Allergies: SUMATRIPTAN (Verified Allergy, Unknown, 11/09/15) ROS Limited/Unobtainable: No Constitutional: Reports: no symptoms HEENT: Reports: no symptoms Cardiovascular: Reports: no symptoms Respiratory: Reports: no symptoms Gastrointestinal/Abdominal: Reports: no symptoms Genitourinary: Reports: no symptoms Neurologic/Psychiatric: Reports: no symptoms Subjective 36 YO F admitted with facial cellulitis. Cover for Int Med-Dr Baum Objective Last Vital Signs Date Time Temp Pulse Resp B/P Pulse Ox O2 Delivery O2 Flow Rate FiO2 09/09/16 08:40 147/91 09/09/16 08:40 93 09/09/16 08:00 97.9 20 98 Room Air General Appearance: WD/WN, no apparent distress, alert EENT: PERRL/EOMI, normal ENT inspection, TMs normal Neck: non-tender, normal alignment, supple Cardiovascular: normal peripheral pulses, normal rate, regular rhythm, no gallop/murmur, no JVD Respiratory/Chest: chest wall non-tender, lungs clear, normal breath sounds, no respiratory distress, no accessory muscle use Abdomen: normal bowel sounds, non tender, soft, no organomegaly, no mass Extremities: normal range of motion Neurologic: manager payer II-XII grossly normal, no motor/sensory deficits Skin: other - erythema right face Laboratory Tests Test 09/08/16 20:55 09/09/16 07:15 Vancomycin Level Trough 5.9 ug/mL (5.0-12.0) White Blood Count 8.9 K/UL (4.8-10.8) Red Blood Count 4.76 M/UL (4.20-5.40) Hemoglobin 11.9 G/DL (12.0-16.0) L Hematocrit 37.8 % (37.0-47.0) Mean Corpuscular Volume 79 FL (80-99) L Mean Corpuscular Hemoglobin 24.9 PG (27.0-31.0) L Mean Corpuscular Hemoglobin Concent 31.5 G/DL (32.0-36.0) L Red Cell Distribution Width 15.5 % (11.6-14.8) H Platelet Count 392 K/UL (150-450) Mean Platelet Volume 6.0 FL (6.5-10.1) L Neutrophils (%) (Auto) 57.3 % (45.0-75.0) Lymphocytes (%) (Auto) 32.3 % (20.0-45.0) Monocytes (%) (Auto) 7.0 % (1.0-10.0) Eosinophils (%) (Auto) 2.4 % (0.0-3.0) Basophils (%) (Auto) 1.0 % (0.0-2.0) Sodium Level 132 mEQ/L (135-145) L Potassium Level 4.1 mEQ/L (3.4-4.9) Chloride Level 91 mEQ/L (98-107) L Carbon Dioxide Level 27 mEQ/L (20-30) Anion Gap 14 (5-15) Blood Urea Nitrogen 14 mg/dL (7-23) Creatinine 0.6 mg/dL (0.5-0.9) Estimat Glomerular Filtration Rate > 60 mL/min (>60) Glucose Level 390 mg/dL (74-106) H Calcium Level 9.5 mg/dL (8.6-10.2) Total Bilirubin 0.3 mg/dL (0.0-1.2) Aspartate Amino Transf (AST/SGOT) 11 U/L (5-40) Alanine Aminotransferase (ALT/SGPT) 13 U/L (3-33) Alkaline Phosphatase 165 U/L (35-104) H Total Protein 6.8 g/dL (6.6-8.7) Albumin 3.3 g/dL (3.5-5.2) L Globulin 3.5 g/dL Albumin/Globulin Ratio 0.9 (1.0-2.7) L Microbiology Date/Time Source Procedure Growth Status 09/07/16 09:30 Blood Blood Culture - Preliminary NO GROWTH AFTER 24 HOURS Resulted 09/07/16 09:30 Blood Blood Culture - Preliminary NO GROWTH AFTER 24 HOURS Resulted Intake and Output 09/08/16 09/09/16 19:00 07:00 Intake Total 1467.4168 ml 675.000 ml Balance 1467.4168 ml 675.000 ml Intake Oral 1100 ml 400 ml IV Total 367.4168 ml 275.000 ml # Voids 6 2 # Bowel Movements 2 Assessment/Plan Problem List: (1) Diabetes mellitus type II, uncontrolled Assessment & Plan: continue novolog sliding scale. (2) Bipolar depression Assessment & Plan: Continue abilify (3) HTN (hypertension) Assessment & Plan: Continue HCTZ and atenolol. (4) Facial cellulitis Assessment & Plan: Continue vanco and clindamycin per ID Status: not improved DAVID HYMAN Sep 09, 2016 13:17
[2016-09-09 16:00] VITALS: BP 152/93
[2016-09-09 20:16] VITALS: BP 126/88
[2016-09-09] MEDS ORDERED: ARIPiprazole 10mg tab ORAL SCH (21:00)
[2016-09-09] MEDS: LORazepam 1mg tab ORAL PRN (21:07)
[2016-09-10 00:35] VITALS: BP 131/85
[2016-09-10] MEDS: Clindamycin 600mg 50 ML IV SCH ×2 (03:53→11:35)
[2016-09-10 04:17] VITALS: BP 140/93
[2016-09-10] MEDS: Vancomycin 1gm/D5W 275ml IVPB SCH ×4 (06:02→13:44)
[2016-09-10] MEDS: NovoLOG Insulin Flexpen SUBQ SCH ×3 (06:07→16:44)
[2016-09-10 06:49] LABS: ALANINE AMINOTRANSFERASE 12 U/L (3-33); ALBUMIN/GLOBULIN RATIO 0.9 (1.0-2.7); ANION GAP 15 (5-15); ASPARTATE AMINO TRANSFERASE 11 U/L (5-40); CALCIUM 9.7 mg/dL (8.6-10.2); CARBON DIOXIDE 27 mEQ/L (20-30); CHLORIDE 94 mEQ/L (98-107); CREATININE 0.6 mg/dL (0.5-0.9); GLOMERULAR FILTRATION RATE > 60 mL/min (>60); HEMOLYSIS 0; POTASSIUM 4.5 mEQ/L (3.4-4.9); SODIUM 136 mEQ/L (135-145); TOTAL PROTEIN 6.9 g/dL (6.6-8.7)
[2016-09-10 07:26] LABS: BASOPHILS % (AUTO) 1.3 % (0.0-2.0); EOSINOPHILS % (AUTO) 3.3 % (0.0-3.0); LYMPHOCYTES % (AUTO) 34.2 % (20.0-45.0); MEAN CORPUSCULAR HEMOGLOBIN 25.1 PG (27.0-31.0); MEAN CORPUSCULAR HGB CONC 31.7 G/DL (32.0-36.0); MEAN CORPUSCULAR VOLUME 79 FL (80-99); MEAN PLATELET VOLUME 5.8 FL (6.5-10.1); MONOCYTES % (AUTO) 7.9 % (1.0-10.0); NEUTROPHILS % (AUTO) 53.3 % (45.0-75.0); PLATELET COUNT 426 K/UL (150-450); RED BLOOD COUNT 4.83 M/UL (4.20-5.40); RED CELL DISTRIBUTION WIDTH 15.3 % (11.6-14.8); WHITE BLOOD COUNT 9.1 K/UL (4.8-10.8)
[2016-09-10 08:00] VITALS: BP 144/100
--- NOTE | 2016-09-10 08:03 | General Progress Note ---
Assessment/Plan Status: stable Assessment/Plan 1- Sepsis 2- Cellulitis,Facial 3- DM-uncontrolled 4- Substance abuse Plan: Current management. Ok to followup as outpatient , pending ID Clearance Subjective ROS Limited/Unobtainable: No Constitutional: Reports: no symptoms HEENT: Reports: no symptoms Allergies: Coded Allergies: SUMATRIPTAN (Verified Allergy, Unknown, 11/09/15) Objective Last 24 Hour Vital Signs Date Time Temp Pulse Resp B/P Pulse Ox O2 Delivery O2 Flow Rate FiO2 09/10/16 04:17 98.2 83 19 140/93 100 Room Air 09/10/16 00:35 98.1 88 18 131/85 100 Room Air 09/09/16 20:16 97.5 112 19 126/88 100 Room Air 09/09/16 16:00 97.7 100 20 152/93 100 Room Air 09/09/16 12:00 97.3 80 18 130/86 97 Room Air 09/09/16 08:40 147/91 09/09/16 08:40 93 141/91 Intake and Output 09/09/16 09/10/16 19:00 07:00 Intake Total 755.000 ml 480 ml Balance 755.000 ml 480 ml Intake Oral 480 ml 480 ml IV Total 275.000 ml # Voids 2 2 # Bowel Movements 4 Laboratory Tests 09/10/16 05:25: White Blood Count 9.1, Red Blood Count 4.83, Hemoglobin 12.1, Hematocrit 38.3, Mean Corpuscular Volume 79L, Mean Corpuscular Hemoglobin 25.1L, Mean Corpuscular Hemoglobin Concent 31.7L, Red Cell Distribution Width 15.3H, Platelet Count 426, Mean Platelet Volume 5.8L, Neutrophils (%) (Auto) 53.3, Lymphocytes (%) (Auto) 34.2, Monocytes (%) (Auto) 7.9, Eosinophils (%) (Auto) 3.3H, Basophils (%) (Auto) 1.3, Sodium Level 136, Potassium Level 4.5, Chloride Level 94L, Carbon Dioxide Level 27, Anion Gap 15, Blood Urea Nitrogen 15, Creatinine 0.6, Estimat Glomerular Filtration Rate > 60, Glucose Level 236#H, Calcium Level 9.7, Total Bilirubin 0.2, Aspartate Amino Transf (AST/SGOT) 11, Alanine Aminotransferase (ALT/SGPT) 12, Alkaline Phosphatase 146H, Total Protein 6.9, Albumin 3.3L, Globulin 3.6, Albumin/Globulin Ratio 0.9L Height (Feet): 5 Height (Inches): 5.00 Weight (Pounds): 162 General Appearance: alert EENT: PERRL/EOMI, other - right sided facial swelling. minimal redness Neck: supple Cardiovascular: normal rate Respiratory/Chest: lungs clear Abdomen: soft Extremities: non-tender Neurologic: contact center director II-XII grossly normal Tj Baum MD Sep 10, 2016 08:03
[2016-09-10] MEDS: Lisinopril 10mg tab ORAL SCH (08:29)
[2016-09-10] MEDS: Atenolol 25mg tab ORAL SCH (08:30)
[2016-09-10] MEDS: Heparin 5000 units/ml inj SUBQ SCH (08:33)
[2016-09-10] MEDS: metFORMIN 500mg tab ORAL SCH (08:36)
[2016-09-10 12:00] VITALS: BP 139/84
--- NOTE | 2016-09-10 14:58 | Diagnostic Imaging Report ---
Indication: PAIN facial cellulitis, history of hidradenitis, right facial swelling and pain Technique: Administration nonionic contrast. Spiral acquisitions obtained through the neck. Multiplanar reconstructions were generated. Total dose length product 558 mGycm. CTDIvol(s) 8, 24, 18 mGy. Dose reduction achieved using automated exposure control Comparison: 11/09/2015 Findings: The tonsillar pillars are now symmetrical, equal in attenuation. There is persistent mild prominence of the adenoids, but this is decreased from the previous study. The nasopharynx, oropharynx, hypopharynx are unremarkable. The larynx, trachea, proximal bronchi appear unremarkable. Previously demonstrated left tonsillar and hypopharyngeal abnormality has resolved. Interim development of thickening of the skin and subcutaneous fat in the right preauricular/inferior malar region. No fluid collection to suggest abscess demonstrated. The included sinuses are clear. Previously demonstrated left-sided sinonasal disease has resolved. The bones are unremarkable. The vascular structures are unremarkable. The salivary glands are unremarkable. Right-sided anterior triangle and submandibular nodes are prominent, perhaps slightly more so than on the previous study, but not frankly enlarged. Previously demonstrated left neck lymphadenopathy has decreased. The lung apices are clear. The bones demonstrate mild degenerative changes. Included portions of the orbits are unremarkable. Included intracranial structures are unremarkable. Calcification is seen in the left thyroid lower pole Impression: Left facial skin thickening and infiltration of the subcutaneous fat, consistent with stated clinical history facial cellulitis. No evidence of abscess or other complication Slightly prominent right neck and submental nodes, slightly more so than on prior scan of 09/10/2016. Presumably represents mild reactive adenopathy Interim resolution of previously demonstrated left tonsillar thickening and left-sided lymphadenopathy. Incidental finding of left thyroid calcification Mild degenerative spondylosis The CT scanner at [facility] is accredited by the [employer] and the scans are performed using protocols designed to limit radiation exposure to as low as reasonably achievable to attain images of sufficient resolution adequate for diagnostic evaluation. Contrast
[2016-09-10 16:00] VITALS: BP 128/88
--- NOTE | 2016-09-10 17:52 | Infectious Diseases Prog Note ---
Assessment/Plan Assessment/Plan ASSESSMENT: 36 y/o female with: // Facial cellulitis / impetigo - improving, culture S.aureus ( sensi pending ) - CT: Left facial skin thickening and infiltration of the subcutaneous fat, consistent with facial cellulitis. No evidence of abscess or other complication - h/o chronic folliculitis, acne, hidradenitis with manipulation // h/o yeast overgrowth on ABX // Leukocytosis - resolved, afebrile // DM2 // Psych disorder // h/o polysubstance abuse // No ABX allergies // Full Code PLAN: - ok to DC on PO bactrim x7 days + flucon QOD - Rx on chart. Will continue IV vancomycin d# 3, clindamycin d# 2 while still inpt - f/u final cultures - monitor CBC, temperatures - monitor BMP - wound care Subjective Allergies: Coded Allergies: SUMATRIPTAN (Verified Allergy, Unknown, 11/09/15) Subjective remains afebrile, improving culture S.aureus CT noted Objective Vital Signs Last 24 Hour Vital Signs Date Time Temp Pulse Resp B/P Pulse Ox O2 Delivery O2 Flow Rate FiO2 09/10/16 16:00 97.5 85 18 128/88 100 Room Air 09/10/16 12:49 97.7 09/10/16 12:00 97.7 73 18 139/84 99 Room Air 09/10/16 08:30 89 144/100 09/10/16 08:29 144/100 09/10/16 08:00 97.3 89 20 144/100 99 Room Air 09/10/16 04:17 98.2 83 19 140/93 100 Room Air 09/10/16 00:35 98.1 88 18 131/85 100 Room Air 09/09/16 20:16 97.5 112 19 126/88 100 Room Air Height (Feet): 5 Height (Inches): 5.00 Weight (Pounds): 162 General Appearance: no acute distress HEENT: other - lesions improved Respiratory/Chest: no respiratory distress Cardiovascular: normal rate, regular rhythm Abdomen: normal bowel sounds, soft, non tender, non distended Microbiology Date/Time Source Procedure Growth Status 09/09/16 00:00 Wound Gram Stain - Final Resulted 09/09/16 00:00 Wound Culture - Preliminary Staphylococcus Aureus Resulted Laboratory Tests Test 09/10/16 05:25 White Blood Count 9.1 K/UL (4.8-10.8) Red Blood Count 4.83 M/UL (4.20-5.40) Hemoglobin 12.1 G/DL (12.0-16.0) Hematocrit 38.3 % (37.0-47.0) Mean Corpuscular Volume 79 FL (80-99) L Mean Corpuscular Hemoglobin 25.1 PG (27.0-31.0) L Mean Corpuscular Hemoglobin Concent 31.7 G/DL (32.0-36.0) L Red Cell Distribution Width 15.3 % (11.6-14.8) H Platelet Count 426 K/UL (150-450) Mean Platelet Volume 5.8 FL (6.5-10.1) L Neutrophils (%) (Auto) 53.3 % (45.0-75.0) Lymphocytes (%) (Auto) 34.2 % (20.0-45.0) Monocytes (%) (Auto) 7.9 % (1.0-10.0) Eosinophils (%) (Auto) 3.3 % (0.0-3.0) H Basophils (%) (Auto) 1.3 % (0.0-2.0) Sodium Level 136 mEQ/L (135-145) Potassium Level 4.5 mEQ/L (3.4-4.9) Chloride Level 94 mEQ/L (98-107) L Carbon Dioxide Level 27 mEQ/L (20-30) Anion Gap 15 (5-15) Blood Urea Nitrogen 15 mg/dL (7-23) Creatinine 0.6 mg/dL (0.5-0.9) Estimat Glomerular Filtration Rate > 60 mL/min (>60) Glucose Level 236 mg/dL (74-106) #H Calcium Level 9.7 mg/dL (8.6-10.2) Total Bilirubin 0.2 mg/dL (0.0-1.2) Aspartate Amino Transf (AST/SGOT) 11 U/L (5-40) Alanine Aminotransferase (ALT/SGPT) 12 U/L (3-33) Alkaline Phosphatase 146 U/L (35-104) H Total Protein 6.9 g/dL (6.6-8.7) Albumin 3.3 g/dL (3.5-5.2) L Globulin 3.6 g/dL Albumin/Globulin Ratio 0.9 (1.0-2.7) L Current Medications Medications (Trade) Dose Ordered Sig/Darlene Route PRN Reason Start Time Stop Time Status Last Admin Dose Admin Acetaminophen (Tylenol) 650 mg Q6H PRN ORAL Mild Pain/Temp > 100.5 09/07/16 14:15 10/07/16 14:14 09/10/16 11:50 Aripiprazole 10 mg 10 mg QHS ORAL 09/10/16 21:00 10/10/16 20:59 Atenolol (Tenormin) 25 mg DAILY ORAL 09/08/16 09:00 10/08/16 08:59 09/10/16 08:30 Clindamycin HCl/ Dextrose (Cleocin 600mg) 50 ml @ 100 mls/hr Q8H IV 09/09/16 11:00 09/16/16 10:59 09/10/16 11:35 Dextrose STAT PRN IV Hypoglycemia 09/08/16 13:00 10/08/16 12:59 Heparin Sodium (Porcine) (Heparin 5000 units/ml) 5,000 units EVERY 12 HOURS SUBQ 09/07/16 15:00 10/07/16 14:59 09/10/16 08:33 Hydrochlorothiazide (Hydrodiuril) 12.5 mg DAILY ORAL 09/08/16 09:00 10/08/16 08:59 09/10/16 08:28 Insulin Aspart (NovoLOG) BEFORE MEALS AND HS SUBQ 09/08/16 16:30 10/08/16 16:29 09/10/16 16:44 Lisinopril (Zestril) 10 mg DAILY ORAL 09/08/16 09:00 10/08/16 08:59 09/10/16 08:29 Lorazepam (Ativan) 1 mg THREE TIMES A DAY PRN ORAL For Anxiety 09/08/16 09:00 09/15/16 08:59 09/09/16 21:07 Metformin HCl (Glucophage) 500 mg TWICE A DAY ORAL 09/12/16 18:00 10/12/16 17:59 Nicotine (Nicoderm) 1 patch Q24H TDERMAL 09/08/16 09:00 10/08/16 08:59 09/10/16 08:30 Vancomycin HCl (Vanco rx to dose) 1 ea DAILY PRN MISC Per rx protocol 09/07/16 14:15 10/07/16 14:14 Vancomycin HCl/ Dextrose (Vancomycin/D5W) 275 ml @ 183.708 mls/hr Q8HR IVPB 09/08/16 22:00 09/13/16 21:59 09/10/16 13:44 LOUISA MIGUEL Sep 10, 2016 17:52
[2016-09-10] MEDS ORDERED: Tubing IV Secondary IV ONE (19:57)
[2016-09-10] MEDS ORDERED: ARIPiprazole 10mg tab ORAL SCH (21:00)
--- NOTE | 2016-09-11 09:59 | Discharge Summary ---
Discharge Summary Hospital Course Date of Admission Sep 07, 2016 at 10:32 Date of Discharge Sep 10, 2016 at 19:58 Admitting Diagnosis facial cellulities HPI Matthewa Am Nicolas Leyva is a 36 year old female who was admitted on Sep 07, 2016 at 10 :32 for Facial Cellulitis Hospital Course dc summary #[id number] Discharge Condition Upon Discharge: stable Discharge Disposition Patient was discharged to Home (01) Discharge Diagnoses: Discharge Instructions Discharge Instructions Special Instructions I have been assigned to complete a D/C Summary on this account. I was not involved in the patient management Ashlyn Clifford NP ([facility]) Sep 11, 2016 09:59
--- NOTE | 2016-09-11 12:01 | Discharge Summary 2 SIG ---
DATE OF ADMISSION: 09/07/2016 DATE OF DISCHARGE: 09/10/2016 REASON FOR ADMISSION: 36-year-old female with a history of hydradenitis suppurativa, chronic folliculitis, and acne came to emergency room due to increased swelling of the right side of the face. The patient reported pimples on her face for the past few weeks. She reported manipulating them and as a result they increased in size rapidly, became swollen and open up. She reported tenderness and pain. She denied fever and chills. She also stated that she fell few days ago and may got something into her hand. The patient has a history of diabetes, hypertension, and migraine. Workup in the emergency room revealed leukocytosis-13.4. No fever. X-ray of the right wrist revealed no acute process.Negative for radiopaque foreign body. Blood glucose was 403 upon admission. The patient started on empiric antibiotics and was admitted for further management. ADMITTING DIAGNOSES: 1. Sepsis. 2. Right-sided facial cellulitis. 3. History of chronic folliculitis, acne, hydradenitis suppurativa with manipulation. 4. Diabetes mellitus type 2. HOSPITAL STAY: The patient admitted. The patient started on empiric antibiotics. ID consult was requested. Blood culture were negative. Wound culture revealed Staph aureus. The patient undergone CT of the neck which revealed findings consistent with clinical history of facial cellulitis but no evidence of abscess or other complication. While in the hospital, the patient was on IV vancomycin and clindamycin. Upon discharge, the patient transitioned to oral Bactrim for seven days and fluconazole every other day. Leukocytosis resolved next day. Blood sugar was managed with sliding scale of insulin. Hemoglobin A1c- 9.8 , definitely not at goal. The patient needs to follow up as outpatient with primary medical doctor to improve glycemic control. The patient has a history of substance abuse. The patient counseled on abstinence from the street drugs and provided referral to outpatient program. The patient has a history of bipolar disorder. Abilify was continued. Blood pressure was stable with current regimen. The patient was stable for discharge. DISCHARGE DIAGNOSES: 1. Sepsis. 2. Right-sided facial cellulitis. 3. History of chronic folliculitis, acne, hydradenitis suppurativa with manipulation. 4. Diabetes mellitus type 2, uncontrolled. 5. Polysubstance abuse. 6. Bipolar disorder. 7. Hypertension. DISCHARGE MEDICATIONS: The patient was given prescription for Bactrim and fluconazole written by ID. Continue home medication. DISCHARGE INSTRUCTIONS: The patient to follow up with primary medical doctor to improve glycemic control. The patient was reinforced to comply with the prescription and complete antibiotic course. The patient was informed not to manipulate the lesions and pustules in future. Tj Baum M.D. I have been assigned to dictate discharge summary on this account and I was not involved in the patient's management. Ashlyn CarrascoVa Ny Harbor Healthcare Systemkina N.PShivani DR: BARBARA JOB#: [id number] CC: DELFINO
[2016-09-12] MEDS ORDERED: metFORMIN 500mg tab ORAL SCH (18:00)
== END 2016-09-10 19:58 | disposition home or self-care (01) | DRG 720 ==
LOC: EMR 09:18 → 3E 10:32 → EDBEDREQ 11:52 → 3E 09-09 10:39
DX: A41.9 Sepsis, unspecified organism (principal); E11.65 Type 2 diabetes mellitus with hyperglycemia; I10 Essential (primary) hypertension; L03.211 Cellulitis of face; F19.10 Other psychoactive substance abuse, uncomplicated; F31.9 Bipolar disorder, unspecified; Z88.8 Allergy status to other drugs, medicaments and biological substances; F17.200 Nicotine dependence, unspecified, uncomplicated; L73.2 Hidradenitis suppurativa; L02.01 Cutaneous abscess of face; L02.11 Cutaneous abscess of neck; L70.9 Acne, unspecified
CPT/HCPCS: 36415; 70491; 80053; 80061; 80202; 80301; 81003; 82550; 82553; 82962; 83036; 83540; 83550; 83605; 84443; 85025; 87040; 87070; 87181; 87205; J1815; S0077

== ENCOUNTER 2016-09-21 15:27 | Inpatient (IN) | payer MEDICAID ==
[~2016-09-21] VITALS: Ht 165.1 cm; Wt 72.6 kg
[~2016-09-21 15:27] MED LIST changes: +ABILIFY10 MG ORAL; +ATIVAN1 MG ORAL
[2016-09-21 16:04] VITALS: BP 97/60
--- NOTE | 2016-09-21 16:08 | Emergency Room Report ---
History of Present Illness General Chief Complaint: Abdominal Pain Source: Patient, Medical Record Present Illness HPI Patient presents with right flank pain radiating down into her groin. Began last night. Been constant. It severe at this time. She denies any fevers. She's been vomiting. She's never had this pain before. She doesn't think she is at this time. Pain 10/10, constant, anterior abdomen RLQ radiate to flank R. Glucose elevated. No change in bowels. No uri, cough, sore throat. Some rashes face - chronic. Headache. Weakness. No extremity pain. H/O bipolar disorder - no SI HI. Allergies: Coded Allergies: SUMATRIPTAN (Verified Allergy, Unknown, 11/09/15) Patient History Past Medical History: see triage record Social History: Reports: drug use, smoking Social History Narrative with Mom Last Menstrual Period: 09/15/16 Now: No Reviewed Nursing Documentation: PMH: Agreed, PSxH: Agreed Nursing Documentation-PMH Past Medical History: No History, Except For Hx Hypertension: Yes Hx Diabetes: Yes Hx Gastrointestinal Problems: No Hx Neurological Problems: No - migraine Review of Systems All Other Systems: negative except mentioned in HPI Physical Exam Vital Signs Date Time Temp Pulse Resp B/P Pulse Ox O2 Delivery O2 Flow Rate FiO2 09/21/16 15:45 98.8 114 18 97/60 98 Room Air Sp02 EP Interpretation: reviewed, normal General Appearance: GCS 15, mild distress Head: normocephalic Eyes: bilateral eye PERRL, bilateral eye normal inspection ENT: moist mucus membranes Neck: supple Respiratory: lungs clear, normal breath sounds Cardiovascular #1: tachycardia Cardiovascular #2: 2+ radial (R) Gastrointestinal: normal inspection, no mass, non-distended, no rebound, abnormal bowel sounds - decreased, tenderness - RLQ Musculoskeletal: back normal, gait/station normal, normal range of motion Neurologic: alert, oriented x3, grossly normal Psychiatric: anxious Skin: normal inspection, warm/dry, other - chronic lesions face Medical Decision Making Diagnostic Impression: Primary Impression: Pyelonephritis Additional Impression: Diabetes mellitus type II, uncontrolled Qualified Codes: E11.8 - Type 2 diabetes mellitus with unspecified complications; E11.65 - Type 2 diabetes mellitus with hyperglycemia ER Course Patient presents with R flank and RLQ pain since AM. DDx: appendicitis, pyelonephritis, diverticulitis, stone, PID amongst others. Severe pain with co- morbidity. W/U with labs and CT abd pelvis. Aggressive hydration and analgesia. WBC elevated. UA with pyuria. Glucose elevated (treat with hydration and repeat accucheck). Antibiotics begun. Improved with analgesia. CT with pyelo. Admit med, Dr. Osborne. Laboratory Tests Test 09/21/16 16:00 09/21/16 16:10 09/21/16 18:00 Urine Color Pale yellow Urine Appearance Cloudy Urine pH 6 (4.5-8.0) Urine Specific [place] 1.010 (1.005-1.035) Urine Protein 2+ (NEGATIVE) H Urine Glucose (UA) 4+ (NEGATIVE) H Urine Ketones Negative (NEGATIVE) Urine Occult Blood 5+ (NEGATIVE) H Urine Nitrite Negative (NEGATIVE) Urine Bilirubin Negative (NEGATIVE) Urine Urobilinogen Normal MG/DL (0.0-1.0) Urine Leukocyte Esterase 3+ (NEGATIVE) H Urine RBC 0-2 /HPF (0 - 2) Urine WBC Tntc /HPF (0 - 2) H Urine Squamous Epithelial Cells Moderate /LPF (NONE/OCC) H Urine Bacteria Moderate /HPF (NONE) H White Blood Count 26.4 K/UL (4.8-10.8) *H Red Blood Count 4.65 M/UL (4.20-5.40) Hemoglobin 12.3 G/DL (12.0-16.0) Hematocrit 37.4 % (37.0-47.0) Mean Corpuscular Volume 80 FL (80-99) Mean Corpuscular Hemoglobin 26.4 PG (27.0-31.0) L Mean Corpuscular Hemoglobin Concent 32.8 G/DL (32.0-36.0) Red Cell Distribution Width 16.3 % (11.6-14.8) H Platelet Count 378 K/UL (150-450) Mean Platelet Volume 5.5 FL (6.5-10.1) L Neutrophils (%) (Auto) % (45.0-75.0) Lymphocytes (%) (Auto) % (20.0-45.0) Monocytes (%) (Auto) % (1.0-10.0) Eosinophils (%) (Auto) % (0.0-3.0) Basophils (%) (Auto) % (0.0-2.0) Differential Total Cells Counted 100 Neutrophils % (Manual) 76 % (45-75) H Lymphocytes % (Manual) 11 % (20-45) L Monocytes % (Manual) 5 % (1-10) Eosinophils % (Manual) 0 % (0-3) Basophils % (Manual) 0 % (0-2) Band Neutrophils 8 % (0-8) Platelet Estimate Adequate Platelet Morphology Normal Polychromasia 1+ Anisocytosis 1+ Microcytosis 1+ Prothrombin Time 10.9 SEC (9.30-11.50) Prothrombin Time INR 1.0 (0.9-1.1) PTT 33 SEC (23-33) Sodium Level 131 mEQ/L (135-145) L Potassium Level 4.2 mEQ/L (3.4-4.9) Chloride Level 94 mEQ/L (98-107) L Carbon Dioxide Level 23 mEQ/L (20-30) Anion Gap 14 (5-15) Blood Urea Nitrogen 11 mg/dL (7-23) Creatinine 0.8 mg/dL (0.5-0.9) Estimate Glomerular Filtration Rate > 60 mL/min (>60) Glucose Level 343 mg/dL (74-106) H Calcium Level 9.7 mg/dL (8.6-10.2) Total Bilirubin 1.0 mg/dL (0.0-1.2) Aspartate Amino Transferase (AST) 15 U/L (5-40) Alanine Aminotransferase (ALT) 109 U/L (3-33) H Alkaline Phosphatase 152 U/L (35-104) H Total Protein 7.9 g/dL (6.6-8.7) Albumin 3.8 g/dL (3.5-5.2) Globulin 4.1 g/dL Albumin/Globulin Ratio 0.9 (1.0-2.7) L Lipase 18 U/L (< 60) Human Chorionic Gonadotropin, Qual Negative CT/MRI/US Diagnostic Results CT/MRI/US Diagnostic Results : Imaging Test Ordered: CT abd pelvis Impression Stranding R kidney c/w pyelo IMPRESSION: Colorectal distention with increased feces compatible with constipation Interval increase in small bowel caliber most likely ileus Resolution of hydrosalpinx Pulmonary bibasal subsegmental atelectasis Last Vital Signs Date Time Temp Pulse Resp B/P Pulse Ox O2 Delivery O2 Flow Rate FiO2 09/21/16 23:30 98.0 96 16 134/82 100 Room Air Status: improved Disposition: ADMITTED INPATIENT Condition: Serious Imer Nowak M.D. Sep 21, 2016 16:08
[2016-09-21] MEDS ORDERED: Metoclopramide 10mg/2ml Inj IVP ONE (16:15)
[2016-09-21] MEDS ORDERED: DiphenhydrAMINE 50mg/ml Inj IVP ONE (16:15)
[2016-09-21] MEDS ORDERED: Morphine Sulfate 2mg/ml Inj IVP ONE (16:15)
[2016-09-21] MEDS ORDERED: Ketorolac 30mg Inj IV ONE (16:15)
[2016-09-21 17:13] LABS: CHLORIDE 94 mEQ/L (98-107); POTASSIUM 4.2 mEQ/L (3.4-4.9); SODIUM 131 mEQ/L (135-145)
[2016-09-21 17:18] LABS: MEAN CORPUSCULAR HEMOGLOBIN 26.4 PG (27.0-31.0); MEAN CORPUSCULAR HGB CONC 32.8 G/DL (32.0-36.0); MEAN CORPUSCULAR VOLUME 80 FL (80-99); MEAN PLATELET VOLUME 5.5 FL (6.5-10.1); PLATELET COUNT 378 K/UL (150-450); RED BLOOD COUNT 4.65 M/UL (4.20-5.40); RED CELL DISTRIBUTION WIDTH 16.3 % (11.6-14.8)
[2016-09-21 17:21] LABS: WHITE BLOOD COUNT 26.4 K/UL (4.8-10.8)
[2016-09-21 17:24] LABS: PROTHROMBIN TIME 10.9 SEC (9.30-11.50)
[2016-09-21 17:26] VITALS: BP 108/69
[2016-09-21 17:36] LABS: ALANINE AMINOTRANSFERASE 109 U/L (3-33); ALBUMIN/GLOBULIN RATIO 0.9 (1.0-2.7); ANION GAP 14 (5-15); ASPARTATE AMINO TRANSFERASE 15 U/L (5-40); CALCIUM 9.7 mg/dL (8.6-10.2); CARBON DIOXIDE 23 mEQ/L (20-30); CREATININE 0.8 mg/dL (0.5-0.9); GLOMERULAR FILTRATION RATE > 60 mL/min (>60); HEMOLYSIS 8; LIPASE 18 U/L (< 60); TOTAL PROTEIN 7.9 g/dL (6.6-8.7)
[2016-09-21] MEDS ORDERED: Cefepime HCl 1 GM in D5W 55 ML IVPB ONE (17:45)
[2016-09-21] MEDS ORDERED: metroNIDAZOLE 500mg 100 ML IVPB ONE (17:45)
[2016-09-21 18:24] VITALS: BP 138/87
[2016-09-21 19:11] LABS: BAND NEUTROPHILS % (MANUAL) 8 % (0-8); BASOPHILS % (MANUAL) 0 % (0-2); EOSINOPHILS % (MANUAL) 0 % (0-3); LYMPHOCYTES % (MANUAL) 11 % (20-45); NEUTROPHILS % (MANUAL) 76 % (45-75); PLATELET ESTIMATE ADEQUATE; TOTAL CELLS COUNTED 100
[2016-09-21 19:12] LABS: ANISOCYTOSIS 1+; MICROCYTES 1+; PLATELET MORPHOLOGY NORMAL; POLYCHROMASIA 1+
[2016-09-21 19:24] LABS: APPEARANCE,URINE CLOUDY; KETONES,URINE NEGATIVE (NEGATIVE); LEUKOCYTE ESTERASE ,URINE 3+ (NEGATIVE); NITRITE,URINE NEGATIVE (NEGATIVE); PH,URINE 6 (4.5-8.0); PROTEIN,URINE 2+ (NEGATIVE); UROBILINOGEN,URINE NORMAL MG/DL (0.0-1.0)
[2016-09-21 19:33] LABS: BACTERIA,URINE MODERATE /HPF; RBC,URINE 0-2 /HPF (0 - 2); SQUAMOUS EPITHELIAL CELL,UR MODERATE /LPF (NONE/OCC); WBC,URINE TNTC /HPF (0 - 2)
[2016-09-21 20:07] VITALS: BP 127/80
[2016-09-21] MEDS ORDERED: Cefepime 1gm vial ONE (20:12)
[2016-09-21] MEDS ORDERED: NS 55 ML IV ONE (20:12)
[2016-09-21] MEDS ORDERED: Morphine Sulfate 4mg/ml Inj IM ONE (21:35)
[2016-09-21 22:15] VITALS: BP 134/82
[2016-09-22] MEDS ORDERED: Morphine Sulfate 2mg/ml Inj IVP PRN (01:00)
[2016-09-22] MEDS: D5NS 1,000 ML IV SCH ×2 (02:39→14:28)
[2016-09-22 04:00] VITALS: BP 124/78
[2016-09-22] MEDS: Morphine Sulfate 4mg/ml Inj IVP PRN ×3 (05:49→20:52)
[2016-09-22 07:45] LABS: MEAN CORPUSCULAR HEMOGLOBIN 25.6 PG (27.0-31.0); MEAN CORPUSCULAR HGB CONC 31.6 G/DL (32.0-36.0); MEAN CORPUSCULAR VOLUME 81 FL (80-99); MEAN PLATELET VOLUME 5.6 FL (6.5-10.1); PLATELET COUNT 367 K/UL (150-450); RED BLOOD COUNT 4.21 M/UL (4.20-5.40); RED CELL DISTRIBUTION WIDTH 16.3 % (11.6-14.8); WHITE BLOOD COUNT 19.1 K/UL (4.8-10.8)
[2016-09-22 07:48] LABS: ALANINE AMINOTRANSFERASE 76 U/L (3-33); ALBUMIN/GLOBULIN RATIO 0.8 (1.0-2.7); ANION GAP 11 (5-15); ASPARTATE AMINO TRANSFERASE 13 U/L (5-40); CALCIUM 8.9 mg/dL (8.6-10.2); CARBON DIOXIDE 25 mEQ/L (20-30); CHLORIDE 100 mEQ/L (98-107); CREATININE 0.7 mg/dL (0.5-0.9); GLOMERULAR FILTRATION RATE > 60 mL/min (>60); HEMOLYSIS 0; POTASSIUM 3.9 mEQ/L (3.4-4.9); SODIUM 136 mEQ/L (135-145); TOTAL PROTEIN 7.1 g/dL (6.6-8.7)
[2016-09-22 08:00] VITALS: BP 144/87
[2016-09-22 08:27] LABS: HEMOGLOBIN A1C 10.3 % (< 6.0)
[2016-09-22] MEDS: Pantoprazole Inj IVP SCH (08:55)
[2016-09-22] MEDS: Heparin 5000 units/ml inj SUBQ SCH ×2 (08:57→20:46)
[2016-09-22] MEDS ORDERED: metroNIDAZOLE 500mg 100 ML IVPB ONE (09:00)
--- NOTE | 2016-09-22 09:23 | Diagnostic Imaging Report ---
Indications: Abdominal/flank pain Technique: Continuous helical CT imaging of the abdomen and pelvis was performed with automatic exposure control following administration of oral and intravenous nonionic iodine contrast, on a Siemens sensation [address] scanner. Axial, coronal, and sagittal images were reconstructed at 5 mm slice thickness. CTDI volume(s): 17 mGy Total DLP: 883 mGy-cm Findings: Comparison: 06/16/2016 oral contrast has passed throughout the gastrointestinal tract to rectum. Mild small bowel distention. Appendix unremarkable. Moderate diffuse colonic and rectal distention with increased feces. No obvious mural thickening, adjacent stranding, extraluminal gas or fluid collections. Bilateral kidneys and unopacified ureters remain unremarkable. No stones, dilation, or surrounding stranding. Previous fluid-filled tubular structures in the pelvic cul-de-sac and right adnexal region have resolved. Remainder visualized pelvic anatomy demonstrates no other obvious acute abnormality. Pleural-based linear densities in both lung bases. Small disc marginal osteophytes scattered throughout lumbar, lower thoracic spine. IMPRESSION: Colorectal distention with increased feces compatible with constipation Interval increase in small bowel caliber most likely ileus Resolution of hydrosalpinx Pulmonary bibasal subsegmental atelectasis This correlates with Dr. Calzada's preliminary report.
[2016-09-22] MEDS ORDERED: Cefepime HCl 1 GM in D5W 55 ML IVPB SCH (10:00)
[2016-09-22 10:17] LABS: ANISOCYTOSIS 1+; BAND NEUTROPHILS % (MANUAL) 1 % (0-8); BASOPHILS % (MANUAL) 0 % (0-2); EOSINOPHILS % (MANUAL) 0 % (0-3); HYPOCHROMASIA 1+; LYMPHOCYTES % (MANUAL) 14 % (20-45); NEUTROPHILS % (MANUAL) 84 % (45-75); PLATELET ESTIMATE ADEQUATE; PLATELET MORPHOLOGY NORMAL; TOTAL CELLS COUNTED 100
--- NOTE | 2016-09-22 10:32 | Diagnostic Imaging Report ---
Indications: Abdominal pain Technique: Transabdominal real-time grayscale and duplex Doppler imaging of the upper abdomen and retroperitoneum was performed. Findings: Comparison: CT abdomen pelvis 09/21/16. Liver 20 cm in length. Normal surface contour, parenchymal echogenicity. No focal lesions. Gallbladder partially contracted, limiting evaluation.. No intraluminal stones or sludge. No mural thickening or adjacent fluid collections. Sonographic Mathis sign negative.. Bile ducts normal caliber. Common bile duct 5-7 mm. Pancreas visualized portions unremarkable. Spleen 14 cm in length. No focal lesions.. Right kidney unremarkable. Left kidney unremarkable. Abdominal aorta, intrahepatic portion of inferior vena cava patent, normal caliber. Duplex Doppler imaging demonstrates antegrade flow in splenic, portal, hepatic veins. No ascites. IMPRESSION: Hepatosplenomegaly Otherwise negative.
[2016-09-22] MEDS: Ketorolac 30mg Inj IM SCH ×3 (11:48→21:23)
--- NOTE | 2016-09-22 12:21 | History & Physical ---
History and Physical History & Physicial seen and examined. full dictation in progress Tj Baum MD Sep 22, 2016 12:21
[2016-09-22] MEDS: LORazepam 1mg tab ORAL PRN (14:35)
--- NOTE | 2016-09-22 15:52 | Consultation ---
Consult Note Consult Note DATE OF CONSULTATION: 09/22/2016 INFECTIOUS DISEASE CONSULTATION CONSULTING PHYSICIAN: Naseem Parish M.D., [facility], [facility] Covering for Dr. Carrasquillo REFERRING PHYSICIAN: Tj Baum M.D. REASON FOR CONSULTATION: leukocytosis, possible pyelonephritis HISTORY OF PRESENT ILLNESS: 36 y/o female with poorly controlled DM2 (HGBA1c>10 ), recent 7d course of septra for R facial impetigo, h/o active crystal meth use , and prior h/o PID now admitted with acute onset subjective fevers, leukocytosis w/ left shift, dysuria, and diffuse abdominal and flank pain. denies prior h/o pyelonephritis. endorses unprotected non monogamous sex one week ago. LMP completed yesterday. h/o PID approx 1 year ago, treated. she believes this pain is worse and more in her flank than that PID previously. denies vaginal discharge. Urine test was negative. u/a with pyuria and culture prelim growing Streptococcus agalactiae. CT performed in ER negative for TOA and did not show any hydronephrosis, renal or ureteral stones, or any perinephric inflammation. RUQ negative sonographic alcazar's sign. Initial peripheral leukocytosis to 26.4 with left shift now increase 12 hrs after initiating IV cefepime and flagyl to 19.1. PAST MEDICAL HISTORY: 1. Hypertension. 2. Diabetes, suboptimally controlled 3. History of hydradenitis suppurativea. 4. History of . 5. R facial staph aureus impetigo s/p D7 septra on 09/17/16 6. polysubstance abuse 7. h/o yeast overgrowth on antibiotics 8. h/o PID 9. 10. Migraines ALLERGIES: No allergies to antibiotics. SOCIAL HISTORY: History of drug abuse, current. sexually active. non monogamous. FAMILY HISTORY: Noncontributory. REVIEW OF SYSTEMS: A 10-point was done and except what is mentioned above has been negative. MEDICATIONS/Antibiotics: IV Cefepime and IV flagyl, D#1 PHYSICAL EXAMINATION: VITAL SIGNS: Vital signs reviewed, afebrile, not tachycardic. HEENT: Mild pale conjunctivae. No icterus. NECK: No lymphadenopathy. CHEST: Clear. HEART: S1 and S2. ABDOMEN: Soft. SKIN: The patient has ulceration over the right side of the face, chin, and back of the neck. There is swelling and edema on the right face. No purulent discharge. NEUROLOGIC: Awake and alert. LABORATORY DATA: White blood cells 19.1, 84% segs, hgb 10.8, plt 367, CO2 25, SCr 0.7, fasting gluc 231, HGBA1c 10.3, ALT 76, ALK phos 155, alb 3.3, lipase 18 , HCG Qual neg u/a tntc wbc, + LE. Ucx: >100k cfu GBS RADIOLOGY: r: F Accession No.: [id number] Location: 4E Procedure: CT Abdomen Pelvis w/Contrast Indications: Abdominal/flank pain Technique: Continuous helical CT imaging of the abdomen and pelvis was performed with automatic exposure control following administration of oral and intravenous nonionic iodine contrast, on a Siemens sensation [address] scanner. Axial, coronal, and sagittal images were reconstructed at 5 mm slice thickness. CTDI volume(s): 17 mGy Total DLP: 883 mGy-cm Findings: Comparison: 06/16/2016 oral contrast has passed throughout the gastrointestinal tract to rectum. Mild small bowel distention. Appendix unremarkable. Moderate diffuse colonic and rectal distention with increased feces. No obvious mural thickening, adjacent stranding, extraluminal gas or fluid collections. Bilateral kidneys and unopacified ureters remain unremarkable. No stones, dilation, or surrounding stranding. Previous fluid-filled tubular structures in the pelvic cul-de-sac and right adnexal region have resolved. Remainder visualized pelvic anatomy demonstrates no other obvious acute abnormality. Pleural-based linear densities in both lung bases. Small disc marginal osteophytes scattered throughout lumbar, lower thoracic spine. IMPRESSION: Colorectal distention with increased feces compatible with constipation Interval increase in small bowel caliber most likely ileus Resolution of hydrosalpinx Pulmonary bibasal subsegmental atelectasis This correlates with Dr. Calzada's preliminary report. Assessment/Plan ASSESSMENT: 36 y/o WF recent non monogamous unprotected sex, active crystal meth smoker, remote h/o PID approximately 1 year ago, s/p 7days po bactrim for R facial impetigo completed on 09/17/16, now admitted with acute onset abdominal and flank pain with pyuria and peripheral leukocytosis concerning for UTI vs PID. CT a/p was negative for tuboovarian abscess and did not show any radiographic evidence of pyelonephritis, but she has significant pyuria on her u/a and urine cx preliminarily is growing Group B Streptococcus, which may be a commensal/ colonizer here. Will continue to treat as possible complicated UTI, but given her history and risk factors, will treat empirically for PID as well. 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 Probably Pelvic Inflammatory Disease r/o GC/Chlamydia possible UTI Leukocytosis Ileus Transaminiits R facial Staph aureus impetigo, resolved s/p D#7 septra 09/17/16 remote h/o PID DM2 BAD h/o polysubstance abuse and active crystal meth smoker high risk sexual behavior no abx allergies PLAN: 1. D/C cefepime and flagyl 2. Start Ceftriaxone 1gm IV q24hr D1 of 3 and doxycycline 100mg q12hr day #1/7 3. Monitor CBC. 4. Monitor BMP. 5. Blood culture x 2 sets. 5. Urine GC/Chlamydia NAAT 6. Serum RPR, rapid HIV test 7. C diff PCR on stool. 8. Based on the patient's clinical course and labs, we will give further recommendation. Thank you, Dr. Baum, for allowing me to participate in the care of the patient. I will follow the patient with you during this hospitalization. Naseem Parish M.D. Sep 22, 2016 15:52
--- NOTE | 2016-09-22 16:30 | Consultation ---
DATE OF CONSULTATION: 09/22/2016 UROLOGY CONSULTATION ATTENDING/CONSULTING PHYSICIAN: Tj Baum M.D. CHIEF COMPLAINT/HISTORY OF PRESENT ILLNESS: I was asked by Dr. Baum to evaluate this 36-year-old female regarding a history of right-sided pyelonephritis in the setting of urinary tract infection. Briefly, the patient has a history of diabetes mellitus. She presented to the hospital with a history of right-sided abdominal and flank pain radiating down to her groin. She reports some slight fevers at home and some nausea and vomiting. She noted some mild dysuria but otherwise no hematuria or other voiding symptoms. She has had urinary tract infections in the past, but never pyelonephritis. Workup with CT scan did not reveal any abnormalities including stones and she was admitted for pyelonephritis and I was asked to evaluate the patient regarding the same. PAST MEDICAL HISTORY: 1. Diabetes mellitus. 2. Bipolar disorder. 3. Hypertension. 4. Tonsillitis/peritonsillar abscess. 5. Urinary tract infection. PAST SURGICAL HISTORY: None. MEDICATIONS: Please see chart for current medications administration details. Briefly, the patient has been placed on cefepime and metronidazole for antibiotic coverage. ALLERGIES: Include sumatriptan. SOCIAL HISTORY: Noncontributory. FAMILY HISTORY: Unremarkable. REVIEW OF SYSTEMS: A 12-system review of systems essentially unremarkable outside of what was described above. PHYSICAL EXAMINATION: GENERAL: The patient is a young female, awake, alert, and oriented x4, in no obvious distress. HEENT: NC/AT. EOMI. NECK: Supple. Oropharynx clear. CHEST: Within normal limits. ABDOMEN: Diffusely tender on the right side with some guarding, nondistended, and soft. EXTREMITIES: Normal perfused. No cyanosis, clubbing or edema. BACK: Right CVA tenderness. Left side within normal limits. NEUROLOGIC: Grossly nonfocal. LABORATORY DATA: White blood cell count is 19.1, hematocrit 34.1, and platelets 367,000. Sodium 136, potassium 3.9, chloride 100, bicarbonate 25, BUN 14, creatinine 0.7, glucose 231, and calcium 8.9. Hemoglobin A1c 10.3. LFTs notable for ALT of 76 and alkaline phosphatase 155. Urine negative. PT 10.9, INR 1.0, and PTT 33. Urinalysis, specific gravity 1.010, and pH 6.0. Dip test notable for 2+ protein, 4+ glucose, 5+ occult blood, and 3+ leukocyte esterase. Microanalysis with too numerous to count white blood cells per high-power field, and moderate bacteria seen. Urine culture is pending DIAGNOSTIC IMAGING: CT scan of the abdomen and pelvis reveals bilateral kidneys under passed by uterus, which are unremarkable. There are no stones, dilation or surrounding stranding. There is colorectal distention with increased feces compatible with constipation. There are signs of ileus. There is resolution of hydrosalpinx. ASSESSMENT AND PLAN: In summary, the patient is a 36-year-old female with a history of right-sided abdominal flank pain radiating down to her groin. She also noted some slight fevers at home and some dysuria. Workup here reveals evidence of urinary tract infection with likely ascending pyelonephritis secondary to the same. CT scan does not reveal any evidence of a stone or other obstruction. Physical exam reveals right-sided abdominal flank pain as well as CVA tenderness. This patient has pyelonephritis and needs to be continued on intravenous antibiotics and supportive care. Once her pain is improved and has been afebrile for 24 to 48 hours. She can be discharged home on oral therapy to complete 14 days of total treatment. There is no need for surgical intervention as the CT scan does not reveal any stones or other abnormalities. Furthermore, I would suggest a better glucose control given her hemoglobin A1c levels and the propensity for uncontrolled diabetics to get infections. Thank you for allowing me to participate in the care of this nice lady. Please do not hesitate to contact me for any questions that you may further have regarding her care. I will be happy to see her with you as needed. Vince Dowd M.D. DR: ANNITA JOB#: [id number] CC:
[2016-09-22] MEDS ORDERED: metroNIDAZOLE 500mg 100 ML IVPB SCH (17:00)
[2016-09-22 20:00] VITALS: BP 160/92
--- NOTE | 2016-09-22 20:28 | General Progress Note ---
Assessment/Plan Status: stable Assessment/Plan 1- Sepsis 2- UTI 3- PID?! 4- IVDA 5- DM- uncontrolled Plan: ID Urology services are consulted No evidence of active pyelonephritis Subjective ROS Limited/Unobtainable: No Cardiovascular: Reports: no symptoms Respiratory: Reports: no symptoms Gastrointestinal/Abdominal: Reports: no symptoms Allergies: Coded Allergies: SUMATRIPTAN (Verified Allergy, Unknown, 11/09/15) Objective Last 24 Hour Vital Signs Date Time Temp Pulse Resp B/P Pulse Ox O2 Delivery O2 Flow Rate FiO2 09/22/16 08:00 98.6 96 20 144/87 99 Room Air 09/22/16 04:00 99.0 101 20 124/78 98 Room Air 09/21/16 23:30 98.0 96 16 134/82 100 Room Air 09/21/16 22:59 98.0 09/21/16 22:15 96 16 134/82 100 Room Air Intake and Output 09/21/16 09/22/16 19:00 07:00 Intake Total 1000 ml 555 ml Balance 1000 ml 555 ml Intake Oral 0 ml IV Total 1000 ml 555 ml # Voids 3 # Bowel Movements 1 Laboratory Tests 09/22/16 06:10: White Blood Count 19.1H, Red Blood Count 4.21, Hemoglobin 10.8L, Hematocrit 34.1L, Mean Corpuscular Volume 81, Mean Corpuscular Hemoglobin 25.6L, Mean Corpuscular Hemoglobin Concent 31.6L, Red Cell Distribution Width 16.3H, Platelet Count 367, Mean Platelet Volume 5.6L, Neutrophils (%) (Auto) , Lymphocytes (%) (Auto) , Monocytes (%) (Auto) , Eosinophils (%) (Auto) , Basophils (%) (Auto) , Differential Total Cells Counted 100, Neutrophils % ( Manual) 84H, Lymphocytes % (Manual) 14L, Monocytes % (Manual) 1, Eosinophils % ( Manual) 0, Basophils % (Manual) 0, Band Neutrophils 1, Platelet Estimate Adequate, Platelet Morphology Normal, Hypochromasia 1+, Anisocytosis 1+, Sodium Level 136, Potassium Level 3.9, Chloride Level 100, Carbon Dioxide Level 25, Anion Gap 11, Blood Urea Nitrogen 14, Creatinine 0.7, Estimat Glomerular Filtration Rate > 60, Glucose Level 231#H, Hemoglobin A1c 10.3H, Calcium Level 8.9, Total Bilirubin 0.5, Aspartate Amino Transf (AST/SGOT) 13, Alanine Aminotransferase (ALT/SGPT) 76H, Alkaline Phosphatase 155H, Total Protein 7.1, Albumin 3.3L, Globulin 3.8, Albumin/Globulin Ratio 0.8L 09/22/16 17:20: Rapid Plasma Reagin [Pending], HIV (1&2) Antibody Rapid Negative 09/22/16 17:42: Chlamydia trachomatis RNA [Pending], Neisseria gonorrhoeae RNA [Pending] Height (Feet): 5 Height (Inches): 5.00 Weight (Pounds): 160 General Appearance: WD/WN EENT: PERRL/EOMI Neck: supple Cardiovascular: normal rate Abdomen: no mass Extremities: non-tender Neurologic: electric spot welder II-XII grossly normal Tj Baum MD Sep 22, 2016 20:28
[2016-09-22] MEDS: ARIPiprazole 10mg tab ORAL SCH (20:44)
[2016-09-22] MEDS: cefTRIAXone 1 GM in D5W 55 ML IVPB SCH (20:46)
[2016-09-22] MEDS ORDERED: DiphenhydrAMINE 50mg/ml Inj IVP PRN (22:15)
[2016-09-23] VITALS (7 sets, daily range): BP systolic 155–194; BP diastolic 91–126
[2016-09-23] MEDS: Ketorolac 30mg Inj IM SCH ×4 (04:00→23:07)
[2016-09-23] MEDS: cloNIDine 0.2mg Tab ORAL PRN ×2 (05:51→17:44)
[2016-09-23] MEDS: NovoLOG Insulin Flexpen SUBQ SCH ×3 (06:12→17:19)
--- NOTE | 2016-09-23 06:30 | History and Physical Report ---
DATE OF ADMISSION: 09/21/2016 SOURCE OF INFORMATION: The patient and EMR. HISTORY OF PRESENT ILLNESS: The patient is a 36-year-old female with a prior history of IV drug abuse. The patient is complaining of pain on the abdomen and back region for one day prior to the ER evaluation. The patient denies any chest pain or shortness of breath. The patient denies any fever or chills. Presented for the change in the urine color. Denies any biliuria. Denies any vaginal discharges. REVIEW OF SYSTEMS: All 12 elements of the review of systems reviewed with the patient. Pertinent positives and negatives as above. PAST SURGICAL HISTORY: x2. MEDICATIONS: Reported atenolol, metformin, Abilify, and Xanax. ALLERGIES: Sumatriptan. SOCIAL HISTORY: Positive for a history of active tobacco smoking about two packs per a week. Positive for IV drug abuse. The patient has two children. FAMILY HISTORY: Reviewed noncontributory. PHYSICAL EXAMINATION: VITAL SIGNS: Blood pressure 100/53, temperature 98.7 degrees, respiratory rate 18-20, pulse oximetry 100% on room air. HEAD AND NECK: Atraumatic and normocephalic. CHEST: Clear to auscultation. HEART: S1 and S2. Regular rate and rhythm. ABDOMEN: Soft. Positive for tenderness in the costovertebral angle area. NEUROLOGIC: The patient is awake, alert, and oriented x3. MUSCULOSKELETAL: No gross focal motor deficit. LABORATORY DATA: Labs dated 09/21/2016 shows WBC 6.4, hemoglobin 12.3, and platelets 378,000. Sodium 131, potassium 4.2, BUN 11, and creatinine 0.8. ALT 100. Urinalysis shows moderate bacteriuria. Serology is pending. ASSESSMENT: 1. Sepsis 2. Pyelonephritis/UTI. 3. PID 4. Abnormal liver function tests. 5. Hyponatremia. 6. Diabetes, uncontrolled. PLAN OF CARE: I will give her medications. resume the antibiotic regimen, Meropenem, Flagyl, and we will optimize urine cultures. Infectious disease Dr Carrasquillo and Urology will be notified and consulted. We will initiate sliding scale insulin. Tj Baum M.D. DR: CARROLL JOB#: [id number] CC: DELFINO
[2016-09-23 07:25] LABS: BASOPHILS % (AUTO) 0.7 % (0.0-2.0); EOSINOPHILS % (AUTO) 1.4 % (0.0-3.0); LYMPHOCYTES % (AUTO) 24.8 % (20.0-45.0); MEAN CORPUSCULAR HGB CONC 31.1 G/DL (32.0-36.0); MEAN CORPUSCULAR VOLUME 80 FL (80-99); MEAN PLATELET VOLUME 5.7 FL (6.5-10.1); MONOCYTES % (AUTO) 6.4 % (1.0-10.0); NEUTROPHILS % (AUTO) 66.8 % (45.0-75.0); PLATELET COUNT 335 K/UL (150-450); RED BLOOD COUNT 3.94 M/UL (4.20-5.40); RED CELL DISTRIBUTION WIDTH 15.9 % (11.6-14.8); WHITE BLOOD COUNT 9.2 K/UL (4.8-10.8)
[2016-09-23 07:59] LABS: ALANINE AMINOTRANSFERASE 56 U/L (3-33); ALBUMIN/GLOBULIN RATIO 0.8 (1.0-2.7); ANION GAP 11 (5-15); ASPARTATE AMINO TRANSFERASE 15 U/L (5-40); CALCIUM 8.7 mg/dL (8.6-10.2); CARBON DIOXIDE 23 mEQ/L (20-30); CHLORIDE 101 mEQ/L (98-107); CREATININE 0.5 mg/dL (0.5-0.9); GLOMERULAR FILTRATION RATE > 60 mL/min (>60); HEMOLYSIS 2; POTASSIUM 3.6 mEQ/L (3.4-4.9); SODIUM 135 mEQ/L (135-145); TOTAL PROTEIN 6.8 g/dL (6.6-8.7)
[2016-09-23] MEDS: Pantoprazole Inj IVP SCH (08:29)
[2016-09-23] MEDS: Heparin 5000 units/ml inj SUBQ SCH ×2 (08:31→21:00)
[2016-09-23] MEDS ORDERED: Tubing IV Secondary IV ONE (10:19)
[2016-09-23] MEDS ORDERED: D5NS 1000ml IV ONE (10:19)
[2016-09-23] MEDS: LORazepam 1mg tab ORAL PRN (16:13)
--- NOTE | 2016-09-23 18:24 | Infectious Diseases Prog Note ---
Assessment/Plan Assessment/Plan ASSESSMENT: 36 y/o WF recent non monogamous unprotected sex, active crystal meth smoker, remote h/o PID approximately 1 year ago, s/p 7days po bactrim for R facial impetigo completed on 09/17/16, now admitted with acute onset abdominal and flank pain with pyuria and peripheral leukocytosis concerning for UTI vs PID. CT a/p was negative for tuboovarian abscess and did not show any radiographic evidence of pyelonephritis, but she has significant pyuria on her u/a and urine cx preliminarily is growing Group B Streptococcus, which may be a commensal/ colonizer here. Will continue to treat as possible complicated UTI, but given her history and risk factors, will treat empirically for PID as well. 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 her alk phos is generally stable today, she remains afebrile, and leukocytosis is resolved, still with some residual pain. Probably Pelvic Inflammatory Disease r/o GC/Chlamydia possible Group B Streptococcus UTI Leukocytosis, resolved Ileus Transaminiits R facial Staph aureus impetigo, resolved s/p D#7 septra 09/17/16 remote h/o PID DM2 BAD h/o polysubstance abuse and active crystal meth smoker high risk sexual behavior no abx allergies PLAN: Continue Ceftriaxone 1gm IV q24hr D2 of 3 and doxycycline PO 100mg q12hr day #2/ 7 Monitor CBC. Monitor BMP. monitor Blood culture x 2 sets. Monitor Urine GC/Chlamydia NAAT Monitor pending Serum RPR Subjective Constitutional: Reports: no symptoms Respiratory: Reports: no symptoms Allergies: Coded Allergies: SUMATRIPTAN (Verified Allergy, Unknown, 11/09/15) Objective Vital Signs Last 24 Hour Vital Signs Date Time Temp Pulse Resp B/P Pulse Ox O2 Delivery O2 Flow Rate FiO2 09/23/16 17:44 176/98 09/23/16 16:00 98.0 95 19 157/96 100 Room Air 09/23/16 12:00 97.7 90 19 162/102 100 Room Air 09/23/16 08:00 98.6 85 20 155/91 98 Room Air 09/23/16 06:45 168/112 09/23/16 05:51 180/112 09/23/16 04:00 98.2 96 20 184/95 98 Room Air 09/23/16 00:00 99.3 93 20 157/97 97 Room Air 09/22/16 20:00 98.2 99 20 160/92 97 Room Air Height (Feet): 5 Height (Inches): 5.00 Weight (Pounds): 160 General Appearance: no acute distress HEENT: anicteric Respiratory/Chest: lungs clear Cardiovascular: normal rate, regular rhythm Abdomen: soft, non tender, no organomegaly, non distended Extremities: no cyanosis, no clubbing, no edema Skin: no rash Lymphatic: no neck adenopathy, no axillary adenopathy Microbiology Date/Time Source Procedure Growth Status 09/22/16 17:42 Stool Clostridium difficile Toxin Assay - Final Complete 09/21/16 16:00 Urine,Clean Catch Urine Culture - Final Strep Agalactiae Group B Complete Laboratory Tests Test 09/23/16 06:20 White Blood Count 9.2 K/UL (4.8-10.8) # Red Blood Count 3.94 M/UL (4.20-5.40) L Hemoglobin 9.9 G/DL (12.0-16.0) L Hematocrit 31.7 % (37.0-47.0) L Mean Corpuscular Volume 80 FL (80-99) Mean Corpuscular Hemoglobin 25.0 PG (27.0-31.0) L Mean Corpuscular Hemoglobin Concent 31.1 G/DL (32.0-36.0) L Red Cell Distribution Width 15.9 % (11.6-14.8) H Platelet Count 335 K/UL (150-450) Mean Platelet Volume 5.7 FL (6.5-10.1) L Neutrophils (%) (Auto) 66.8 % (45.0-75.0) Lymphocytes (%) (Auto) 24.8 % (20.0-45.0) Monocytes (%) (Auto) 6.4 % (1.0-10.0) Eosinophils (%) (Auto) 1.4 % (0.0-3.0) Basophils (%) (Auto) 0.7 % (0.0-2.0) Sodium Level 135 mEQ/L (135-145) Potassium Level 3.6 mEQ/L (3.4-4.9) Chloride Level 101 mEQ/L (98-107) Carbon Dioxide Level 23 mEQ/L (20-30) Anion Gap 11 (5-15) Blood Urea Nitrogen 13 mg/dL (7-23) Creatinine 0.5 mg/dL (0.5-0.9) Estimat Glomerular Filtration Rate > 60 mL/min (>60) Glucose Level 312 mg/dL (74-106) H Calcium Level 8.7 mg/dL (8.6-10.2) Total Bilirubin 0.3 mg/dL (0.0-1.2) Aspartate Amino Transf (AST/SGOT) 15 U/L (5-40) Alanine Aminotransferase (ALT/SGPT) 56 U/L (3-33) H Alkaline Phosphatase 173 U/L (35-104) H Total Protein 6.8 g/dL (6.6-8.7) Albumin 3.2 g/dL (3.5-5.2) L Globulin 3.6 g/dL Albumin/Globulin Ratio 0.8 (1.0-2.7) L Current Medications Medications (Trade) Dose Ordered Sig/Darlene Route PRN Reason Start Time Stop Time Status Last Admin Dose Admin Acetaminophen (Tylenol) 650 mg Q6H PRN ORAL Mild Pain/Temp > 100.5 09/22/16 01:00 10/22/16 00:59 Aripiprazole 10 mg 10 mg BEDTIME ORAL 09/22/16 21:00 10/22/16 20:59 09/22/16 20:44 Ceftriaxone Sodium/Dextrose (Rocephin/D5W) 55 ml @ 110 mls/hr Q24H IVPB 09/22/16 20:00 09/25/16 19:59 09/22/16 20:46 Clonidine HCl (Catapres) 0.2 mg Q8H PRN ORAL For High Blood Pressure 09/22/16 01:00 10/22/16 00:59 09/23/16 17:44 Diphenhydramine HCl (Benadryl) 25 mg Q8H PRN IVP Itching 09/22/16 22:15 10/22/16 22:14 09/22/16 22:35 Doxycycline Monohydrate (Vibramycin) 100 mg EVERY 12 HOURS ORAL 09/22/16 21:00 09/29/16 20:59 09/23/16 08:30 Heparin Sodium (Porcine) (Heparin 5000 units/ml) 5,000 units EVERY 12 HOURS SUBQ 09/22/16 09:00 10/22/16 08:59 09/23/16 08:31 Insulin Aspart (NovoLOG) 2 units NOVOTIAC SUBQ 09/23/16 06:30 10/23/16 06:29 09/23/16 17:19 Ketorolac Tromethamine (Toradol 30mg) 15 mg Q6H IM 09/22/16 10:00 09/27/16 09:59 09/23/16 16:12 Lorazepam (Ativan) 1 mg Q8H PRN ORAL For Anxiety 09/22/16 13:30 09/29/16 13:29 09/23/16 16:13 Morphine Sulfate (Morphine Sulfate) 2 mg Q4H PRN IVP For Pain 4~609/22/16 01:00 09/29/16 00:59 Morphine Sulfate (Morphine Sulfate) 4 mg Q4H PRN IVP For servere Pain 7~09/22/16 01:00 09/29/16 00:59 09/22/16 20:52 Ondansetron HCl (Zofran) 4 mg Q6H PRN IVP Nausea & Vomiting 09/22/16 01:00 10/22/16 00:59 Pantoprazole (Protonix) 40 mg DAILY IVP 09/22/16 09:00 10/22/16 08:59 09/23/16 08:29 Naseem Parish M.D. Sep 23, 2016 18:24
[2016-09-23] MEDS: ARIPiprazole 10mg tab ORAL SCH (21:16)
[2016-09-23] MEDS: cefTRIAXone 1 GM in D5W 55 ML IVPB SCH (21:17)
--- NOTE | 2016-09-23 23:01 | General Progress Note ---
Assessment/Plan Status: stable Assessment/Plan 1- Sepsis 2- UTI 3- PID?! 4- IVDA 5- DM- uncontrolled Plan: Interval imrovement in WBC and symptoms No evidence of active pyelonephritis Subjective ROS Limited/Unobtainable: No HEENT: Reports: no symptoms Cardiovascular: Reports: no symptoms Respiratory: Reports: no symptoms Allergies: Coded Allergies: SUMATRIPTAN (Verified Allergy, Unknown, 11/09/15) Objective Last 24 Hour Vital Signs Date Time Temp Pulse Resp B/P Pulse Ox O2 Delivery O2 Flow Rate FiO2 09/23/16 17:44 176/98 09/23/16 16:00 98.0 95 19 157/96 100 Room Air 09/23/16 12:00 97.7 90 19 162/102 100 Room Air 09/23/16 08:00 98.6 85 20 155/91 98 Room Air 09/23/16 06:45 168/112 09/23/16 05:51 180/112 09/23/16 04:00 98.2 96 20 184/95 98 Room Air 09/23/16 00:00 99.3 93 20 157/97 97 Room Air Intake and Output 09/22/16 09/23/16 19:00 07:00 Intake Total 1295 ml Balance 1295 ml Intake Oral 540 ml IV Total 755 ml # Voids 3 2 # Bowel Movements 1 Laboratory Tests 09/23/16 06:20: White Blood Count 9.2#, Red Blood Count 3.94L, Hemoglobin 9.9L, Hematocrit 31.7L , Mean Corpuscular Volume 80, Mean Corpuscular Hemoglobin 25.0L, Mean Corpuscular Hemoglobin Concent 31.1L, Red Cell Distribution Width 15.9H, Platelet Count 335, Mean Platelet Volume 5.7L, Neutrophils (%) (Auto) 66.8, Lymphocytes (%) (Auto) 24.8, Monocytes (%) (Auto) 6.4, Eosinophils (%) (Auto) 1.4, Basophils (%) (Auto) 0.7, Sodium Level 135, Potassium Level 3.6, Chloride Level 101, Carbon Dioxide Level 23, Anion Gap 11, Blood Urea Nitrogen 13, Creatinine 0.5, Estimat Glomerular Filtration Rate > 60, Glucose Level 312H, Calcium Level 8.7, Total Bilirubin 0.3, Aspartate Amino Transf (AST/SGOT) 15, Alanine Aminotransferase (ALT/SGPT) 56H, Alkaline Phosphatase 173H, Total Protein 6.8, Albumin 3.2L, Globulin 3.6, Albumin/Globulin Ratio 0.8L Height (Feet): 5 Height (Inches): 5.00 Weight (Pounds): 160 General Appearance: no apparent distress EENT: PERRL/EOMI Abdomen: soft Extremities: non-tender 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
[2016-09-24 00:30] VITALS: BP 159/101
[2016-09-24] MEDS: LORazepam 1mg tab ORAL PRN ×2 (02:05→21:29)
[2016-09-24] MEDS: Ketorolac 30mg Inj IM SCH ×4 (04:00→22:52)
[2016-09-24] MEDS: NovoLOG Insulin Flexpen SUBQ SCH ×3 (06:33→17:16)
[2016-09-24 06:40] VITALS: BP 160/103
[2016-09-24 07:35] LABS: BASOPHILS % (AUTO) 1.4 % (0.0-2.0); EOSINOPHILS % (AUTO) 3.9 % (0.0-3.0); LYMPHOCYTES % (AUTO) 37.6 % (20.0-45.0); MEAN CORPUSCULAR HEMOGLOBIN 24.9 PG (27.0-31.0); MEAN CORPUSCULAR HGB CONC 31.1 G/DL (32.0-36.0); MEAN CORPUSCULAR VOLUME 80 FL (80-99); MEAN PLATELET VOLUME 5.3 FL (6.5-10.1); MONOCYTES % (AUTO) 7.6 % (1.0-10.0); NEUTROPHILS % (AUTO) 49.5 % (45.0-75.0); PLATELET COUNT 373 K/UL (150-450); RED BLOOD COUNT 4.18 M/UL (4.20-5.40); WHITE BLOOD COUNT 6.4 K/UL (4.8-10.8)
[2016-09-24 07:53] LABS: ALANINE AMINOTRANSFERASE 50 U/L (3-33); ALBUMIN/GLOBULIN RATIO 0.8 (1.0-2.7); ANION GAP 11 (5-15); ASPARTATE AMINO TRANSFERASE 19 U/L (5-40); CARBON DIOXIDE 25 mEQ/L (20-30); CHLORIDE 100 mEQ/L (98-107); CREATININE 0.6 mg/dL (0.5-0.9); GLOMERULAR FILTRATION RATE > 60 mL/min (>60); HEMOLYSIS 14; POTASSIUM 3.7 mEQ/L (3.4-4.9); SODIUM 136 mEQ/L (135-145); TOTAL PROTEIN 7.2 g/dL (6.6-8.7)
[2016-09-24 08:00] VITALS: BP 162/105
[2016-09-24] MEDS: Heparin 5000 units/ml inj SUBQ SCH ×2 (09:00→21:00)
[2016-09-24] MEDS: Pantoprazole Inj IVP SCH (09:43)
--- NOTE | 2016-09-24 11:27 | General Progress Note ---
Assessment/Plan Status: stable Assessment/Plan 1- Sepsis 2- UTI 3- PID?! 4- IVDA 5- DM- uncontrolled Plan: Interval improvement in WBC and symptoms No evidence of active pyelonephritis ok to followup as out patient with po antibiotic at ID service discretion Subjective ROS Limited/Unobtainable: No Constitutional: Reports: no symptoms Cardiovascular: Reports: no symptoms Allergies: Coded Allergies: SUMATRIPTAN (Verified Allergy, Unknown, 11/09/15) Objective Last 24 Hour Vital Signs Date Time Temp Pulse Resp B/P Pulse Ox O2 Delivery O2 Flow Rate FiO2 09/24/16 08:00 97.7 91 20 162/105 98 Room Air 09/24/16 06:40 97.5 91 18 160/103 100 Room Air 09/24/16 00:30 97.7 92 18 159/101 98 Room Air 09/23/16 20:00 98.1 104 20 158/98 100 Room Air 09/23/16 20:00 98.1 104 20 194/126 100 Room Air 09/23/16 17:44 176/98 09/23/16 16:00 98.0 95 19 157/96 100 Room Air 09/23/16 12:00 97.7 90 19 162/102 100 Room Air Intake and Output 09/23/16 09/24/16 19:00 07:00 Intake Total 1000 ml 1255 ml Balance 1000 ml 1255 ml Intake Oral 1000 ml 1200 ml IV Total 55 ml # Voids 4 3 # Bowel Movements 1 Laboratory Tests 09/24/16 06:10: White Blood Count 6.4, Red Blood Count 4.18L, Hemoglobin 10.4L, Hematocrit 33.5L , Mean Corpuscular Volume 80, Mean Corpuscular Hemoglobin 24.9L, Mean Corpuscular Hemoglobin Concent 31.1L, Red Cell Distribution Width 15.0H, Platelet Count 373, Mean Platelet Volume 5.3L, Neutrophils (%) (Auto) 49.5, Lymphocytes (%) (Auto) 37.6, Monocytes (%) (Auto) 7.6, Eosinophils (%) (Auto) 3.9H, Basophils (%) (Auto) 1.4, Sodium Level 136, Potassium Level 3.7, Chloride Level 100, Carbon Dioxide Level 25, Anion Gap 11, Blood Urea Nitrogen 14, Creatinine 0.6, Estimat Glomerular Filtration Rate > 60, Glucose Level 275H, Calcium Level 9.0, Total Bilirubin 0.2, Aspartate Amino Transf (AST/SGOT) 19, Alanine Aminotransferase (ALT/SGPT) 50H, Alkaline Phosphatase 131H, Total Protein 7.2, Albumin 3.3L, Globulin 3.9, Albumin/Globulin Ratio 0.8L Height (Feet): 5 Height (Inches): 5.00 Weight (Pounds): 160 General Appearance: no apparent distress EENT: PERRL/EOMI Neck: supple Cardiovascular: normal rate Respiratory/Chest: lungs clear Abdomen: soft Extremities: non-tender 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
[2016-09-24 12:00] VITALS: BP 175/110
[2016-09-24] MEDS: Lisinopril 10mg tab ORAL SCH (12:30)
--- NOTE | 2016-09-24 13:53 | Wound Care Consultation ---
Wound Assessment Wound Assessment : Wound Number: #1 Wound Present on Admission: Yes New Wound: No Status Change of Wound: No Wound Location Body Site Modif: left, mid, medial Wound Location Body Site: foot Wound Type: blister - ruptured. Amelia Test: Does not Amelia Pressure Ulcer Stage: II Wound Thickness: Partial Thickness Wound Length: 0.5 Wound Width: 0.5 Wound Depth: utd Percent of Wound [place]/Red: 20 Percent of Wound Bed Yellow/Wh: 80 - noted yellow denuded skin to wound bed. Wound Drainage Description: Serosanguineous Wound Drainage Amount: Scant Wound Drainage Odor: None/Absent Tissue Surrounding Wound: Intact Wound General Appearance: Reddened Wound Comment #1 Left mid medial foot ruptured blister. Recommendation. - Local wound care as ordered. -Turn and reposition. -Keep clean and dry. -Offload affected site. -Avoid shear and friction. -Optimize nutrition. -Assess and notify MD for any change of condition noted. JANIE MENDOZA Sep 24, 2016 13:52
[2016-09-24 16:00] VITALS: BP 141/86
--- NOTE | 2016-09-24 16:52 | Infectious Diseases Prog Note ---
Assessment/Plan Assessment/Plan ASSESSMENT: 36 y/o WF recent non monogamous unprotected sex, active crystal meth smoker, remote h/o PID approximately 1 year ago, s/p 7days po bactrim for R facial impetigo completed on 09/17/16, now admitted with acute onset abdominal and flank pain with pyuria and peripheral leukocytosis concerning for UTI vs PID with u/s and CT negative for perinephritic inflammation. She has significantly improved with normalization of severe leukocytosis from admission, stool c diff negative. she had significant pyuria on her u/a and urine cx is growing Group B Streptococcus, which may be a commensal/colonizer here. However, treating as possible complicated UTI, but given her history and risk factors, treating empirically for PID as well. she does have RUQ pain and mild transaminitis, which raises the possibility of Qhkw-Kvyg-Cdaakw syndrome. Her alk phos is normalizing, and her R>L lower abdominal pain has decreased from 10/10 on admission now to 4/10. Her discharge on PO antibiotics is on hold b/c one aerobic bottle from admission blood cx is growing a GPC in chains at 36 hrs of culture growth, so surveillance blood cx have been sent and she had a TTE performed this afternoon with result pending to r/o obvious endovalvular lesion. She has no peripheral stigmata of IE, and the small blister on her foot is not consistent with disseminated gonococcal infection, but urine GC/chlamydia NAAT is still pending. Probably Pelvic Inflammatory Disease r/o GC/Chlamydia possible Group B Streptococcus UTI Leukocytosis, resolved Ileus Transaminiits R facial Staph aureus impetigo, resolved s/p D#7 septra 09/17/16 remote h/o PID DM2 BAD h/o polysubstance abuse and active crystal meth smoker high risk sexual behavior no abx allergies PLAN: Continue Ceftriaxone 1gm IV q24hr D3 and doxycycline PO 100mg q12hr day #3 Monitor CBC. Monitor BMP. monitor surveillance Blood culture x 2 sets. Monitor Urine GC/Chlamydia NAAT Monitor pending Serum RPR f/u result of TTE consider d/c tommorrow on po amox and doxy depending on ident of the 09/22/16 blood cx and TTE results. Subjective Constitutional: Reports: no symptoms Respiratory: Reports: no symptoms Cardiovascular: Reports: no symptoms Gastrointestinal/Abdominal: Reports: no symptoms Genitourinary: Reports: no symptoms Musculoskeletal: Reports: pain Allergies: Coded Allergies: SUMATRIPTAN (Verified Allergy, Unknown, 11/09/15) Subjective Has been afebrile through the entirety of her hospitalization Objective Vital Signs Last 24 Hour Vital Signs Date Time Temp Pulse Resp B/P Pulse Ox O2 Delivery O2 Flow Rate FiO2 09/24/16 16:00 97.9 74 20 141/86 99 Room Air 09/24/16 12:30 99 175/110 09/24/16 12:30 175/110 09/24/16 12:00 98.1 99 20 175/110 98 Room Air 09/24/16 08:00 97.7 91 20 162/105 98 Room Air 09/24/16 06:40 97.5 91 18 160/103 100 Room Air 09/24/16 00:30 97.7 92 18 159/101 98 Room Air 09/23/16 20:00 98.1 104 20 158/98 100 Room Air 09/23/16 20:00 98.1 104 20 194/126 100 Room Air 09/23/16 17:44 176/98 Height (Feet): 5 Height (Inches): 5.00 Weight (Pounds): 160 General Appearance: no acute distress HEENT: atraumatic, anicteric Respiratory/Chest: lungs clear, normal breath sounds Cardiovascular: normal peripheral pulses, normal rate, regular rhythm, no JVD, systolic murmur Abdomen: normal bowel sounds, non distended, tender Extremities: no cyanosis, no clubbing, no edema Skin: no rash, other - small <1cm blister on medial aspect of L foot w/o surrounding erythema 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, no motor/sensory deficits Lymphatic: no neck adenopathy, no axillary adenopathy Musculoskeletal: normal muscle bulk Microbiology Date/Time Source Procedure Growth Status 09/22/16 17:30 Blood Blood Culture - Preliminary NO GROWTH AFTER 24 HOURS Resulted 09/22/16 17:30 Blood Blood Culture - Preliminary Resulted 09/22/16 17:42 Stool Clostridium difficile Toxin Assay - Final Complete Laboratory Tests Test 09/24/16 06:10 White Blood Count 6.4 K/UL (4.8-10.8) Red Blood Count 4.18 M/UL (4.20-5.40) L Hemoglobin 10.4 G/DL (12.0-16.0) L Hematocrit 33.5 % (37.0-47.0) L Mean Corpuscular Volume 80 FL (80-99) Mean Corpuscular Hemoglobin 24.9 PG (27.0-31.0) L Mean Corpuscular Hemoglobin Concent 31.1 G/DL (32.0-36.0) L Red Cell Distribution Width 15.0 % (11.6-14.8) H Platelet Count 373 K/UL (150-450) Mean Platelet Volume 5.3 FL (6.5-10.1) L Neutrophils (%) (Auto) 49.5 % (45.0-75.0) Lymphocytes (%) (Auto) 37.6 % (20.0-45.0) Monocytes (%) (Auto) 7.6 % (1.0-10.0) Eosinophils (%) (Auto) 3.9 % (0.0-3.0) H Basophils (%) (Auto) 1.4 % (0.0-2.0) Sodium Level 136 mEQ/L (135-145) Potassium Level 3.7 mEQ/L (3.4-4.9) Chloride Level 100 mEQ/L (98-107) Carbon Dioxide Level 25 mEQ/L (20-30) Anion Gap 11 (5-15) Blood Urea Nitrogen 14 mg/dL (7-23) Creatinine 0.6 mg/dL (0.5-0.9) Estimat Glomerular Filtration Rate > 60 mL/min (>60) Glucose Level 275 mg/dL (74-106) H Calcium Level 9.0 mg/dL (8.6-10.2) Total Bilirubin 0.2 mg/dL (0.0-1.2) Aspartate Amino Transf (AST/SGOT) 19 U/L (5-40) Alanine Aminotransferase (ALT/SGPT) 50 U/L (3-33) H Alkaline Phosphatase 131 U/L (35-104) H Total Protein 7.2 g/dL (6.6-8.7) Albumin 3.3 g/dL (3.5-5.2) L Globulin 3.9 g/dL Albumin/Globulin Ratio 0.8 (1.0-2.7) L Current Medications Medications (Trade) Dose Ordered Sig/Darlene Route PRN Reason Start Time Stop Time Status Last Admin Dose Admin Acetaminophen (Tylenol) 650 mg Q6H PRN ORAL Mild Pain/Temp > 100.5 09/22/16 01:00 10/22/16 00:59 Aripiprazole 10 mg 10 mg BEDTIME ORAL 09/22/16 21:00 10/22/16 20:59 09/23/16 21:16 Atenolol (Tenormin) 50 mg DAILY ORAL 09/24/16 12:00 10/24/16 11:59 09/24/16 12:30 Ceftriaxone Sodium/Dextrose (Rocephin/D5W) 55 ml @ 110 mls/hr Q24H IVPB 09/22/16 20:00 09/25/16 19:59 09/23/16 21:17 Clonidine HCl (Catapres) 0.2 mg Q8H PRN ORAL For High Blood Pressure 09/22/16 01:00 10/22/16 00:59 09/23/16 17:44 Diphenhydramine HCl (Benadryl) 25 mg Q8H PRN IVP Itching 09/22/16 22:15 10/22/16 22:14 09/22/16 22:35 Doxycycline Monohydrate (Vibramycin) 100 mg EVERY 12 HOURS ORAL 09/22/16 21:00 09/29/16 20:59 09/24/16 09:43 Heparin Sodium (Porcine) (Heparin 5000 units/ml) 5,000 units EVERY 12 HOURS SUBQ 09/22/16 09:00 10/22/16 08:59 09/23/16 08:31 Hydrochlorothiazide (Hydrodiuril) 12.5 mg DAILY ORAL 09/24/16 12:00 10/24/16 11:59 09/24/16 12:28 Insulin Aspart (NovoLOG) 2 units NOVOTIAC SUBQ 09/23/16 06:30 10/23/16 06:29 09/24/16 12:02 Ketorolac Tromethamine (Toradol 30mg) 15 mg Q6H IM 09/22/16 10:00 09/27/16 09:59 09/24/16 09:43 Lisinopril (Zestril) 10 mg DAILY ORAL 09/24/16 12:00 10/24/16 11:59 09/24/16 12:30 Lorazepam (Ativan) 1 mg Q8H PRN ORAL For Anxiety 09/22/16 13:30 09/29/16 13:29 09/24/16 02:05 Morphine Sulfate (Morphine Sulfate) 2 mg Q4H PRN IVP For Pain ~08/2509/22/16 01:00 09/29/16 00:59 Morphine Sulfate (Morphine Sulfate) 4 mg Q4H PRN IVP For servere Pain 09/22/16 01:00 09/29/16 00:59 09/22/16 20:52 Ondansetron HCl (Zofran) 4 mg Q6H PRN IVP Nausea & Vomiting 09/22/16 01:00 10/22/16 00:59 Pantoprazole (Protonix) 40 mg DAILY IVP 09/22/16 09:00 10/22/16 08:59 09/24/16 09:43 Naseem Parish M.D. Sep 24, 2016 16:52
[2016-09-24] MEDS: metFORMIN 500mg tab ORAL SCH (18:04)
[2016-09-24 20:00] VITALS: BP 155/92
[2016-09-24] MEDS: ARIPiprazole 10mg tab ORAL SCH (21:28)
[2016-09-24] MEDS: cefTRIAXone 1 GM in NS 55 ML IVPB SCH (21:30)
[2016-09-24] MEDS: Insulin NovoLOG Flexpen S/S (insulin sensitive) SUBQ SCH (21:35)
[2016-09-25] VITALS: BP 167/89
[2016-09-25] MEDS: Ketorolac 30mg Inj IM SCH ×4 (04:00→22:01)
[2016-09-25 06:00] VITALS: BP 169/106
[2016-09-25] MEDS: NovoLOG Insulin Flexpen SUBQ SCH ×3 (06:22→16:50)
[2016-09-25] MEDS: Insulin NovoLOG Flexpen S/S (insulin sensitive) SUBQ SCH ×4 (06:23→20:45)
[2016-09-25 07:51] LABS: BASOPHILS % (AUTO) 1.2 % (0.0-2.0); EOSINOPHILS % (AUTO) 3.2 % (0.0-3.0); LYMPHOCYTES % (AUTO) 35.9 % (20.0-45.0); MEAN CORPUSCULAR HEMOGLOBIN 25.1 PG (27.0-31.0); MEAN CORPUSCULAR HGB CONC 31.6 G/DL (32.0-36.0); MEAN CORPUSCULAR VOLUME 79 FL (80-99); MEAN PLATELET VOLUME 5.3 FL (6.5-10.1); NEUTROPHILS % (AUTO) 51.7 % (45.0-75.0); PLATELET COUNT 421 K/UL (150-450); RED BLOOD COUNT 4.32 M/UL (4.20-5.40); RED CELL DISTRIBUTION WIDTH 15.2 % (11.6-14.8); WHITE BLOOD COUNT 6.2 K/UL (4.8-10.8)
[2016-09-25 08:08] LABS: ALANINE AMINOTRANSFERASE 36 U/L (3-33); ALBUMIN/GLOBULIN RATIO 0.8 (1.0-2.7); ANION GAP 10 (5-15); ASPARTATE AMINO TRANSFERASE 12 U/L (5-40); CALCIUM 9.4 mg/dL (8.6-10.2); CARBON DIOXIDE 28 mEQ/L (20-30); CHLORIDE 98 mEQ/L (98-107); CREATININE 0.6 mg/dL (0.5-0.9); GLOMERULAR FILTRATION RATE > 60 mL/min (>60); HEMOLYSIS 3; SODIUM 136 mEQ/L (135-145); TOTAL PROTEIN 6.8 g/dL (6.6-8.7)
[2016-09-25 08:29] VITALS: BP 167/109
[2016-09-25] MEDS: Heparin 5000 units/ml inj SUBQ SCH ×2 (09:00→20:53)
[2016-09-25] MEDS: metFORMIN 500mg tab ORAL SCH ×2 (09:24→17:39)
[2016-09-25] MEDS: Lisinopril 10mg tab ORAL SCH (09:25)
[2016-09-25] MEDS: Pantoprazole Inj IVP SCH (09:26)
[2016-09-25] MEDS ORDERED: NS 275ml ONE (10:35)
[2016-09-25 11:56] VITALS: BP 142/90
--- NOTE | 2016-09-25 12:21 | Infectious Diseases Prog Note ---
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 +ve blood CX Probably Pelvic Inflammatory Disease r/o GC/Chlamydia possible Group B Streptococcus UTI Leukocytosis, resolved Ileus Transaminiits R facial Staph aureus impetigo, resolved s/p D#7 septra 09/17/16 remote h/o PID active crystal meth smoker, DM2 BAD h/o polysubstance abuse and active crystal meth smoker high risk sexual behavior no abx allergies PLAN: Continue Ceftriaxone 1gm IV q24hr D3 and doxycycline PO 100mg q12hr day #3 ,add Flagyl d# Monitor CBC. Monitor BMP. monitor surveillance Blood culture x 2 sets. Monitor Urine GC/Chlamydia NAAT Monitor pending Serum RPR f/u result of TTE Subjective Constitutional: Denies: anorexia, chills, drenching sweats, fatigue, fever, no symptoms, other Allergies: Coded Allergies: SUMATRIPTAN (Verified Allergy, Unknown, 11/09/15) Objective Vital Signs Last 24 Hour Vital Signs Date Time Temp Pulse Resp B/P Pulse Ox O2 Delivery O2 Flow Rate FiO2 09/25/16 09:25 166/103 09/25/16 09:00 80 166/103 09/25/16 08:29 97.9 77 16 167/109 99 Room Air 09/25/16 06:00 97.3 84 18 169/106 98 Room Air 09/25/16 00:00 97.9 83 20 167/89 98 Room Air 09/24/16 20:00 97.0 71 18 155/92 98 Room Air 09/24/16 16:00 97.9 74 20 141/86 99 Room Air 09/24/16 12:30 99 175/110 09/24/16 12:30 175/110 09/24/16 12:00 98.1 99 20 175/110 98 Room Air Height (Feet): 5 Height (Inches): 5.00 Weight (Pounds): 160 HEENT: anicteric Respiratory/Chest: no respiratory distress Cardiovascular: regular rhythm Abdomen: non distended Microbiology Date/Time Source Procedure Growth Status 09/22/16 17:30 Blood Blood Culture - Preliminary NO GROWTH AFTER 48 HOURS Resulted 09/22/16 17:30 Blood Blood Culture - Preliminary Resulted 09/22/16 17:42 Stool Clostridium difficile Toxin Assay - Final Complete Laboratory Tests Test 09/25/16 07:10 White Blood Count 6.2 K/UL (4.8-10.8) Red Blood Count 4.32 M/UL (4.20-5.40) Hemoglobin 10.8 G/DL (12.0-16.0) L Hematocrit 34.3 % (37.0-47.0) L Mean Corpuscular Volume 79 FL (80-99) L Mean Corpuscular Hemoglobin 25.1 PG (27.0-31.0) L Mean Corpuscular Hemoglobin Concent 31.6 G/DL (32.0-36.0) L Red Cell Distribution Width 15.2 % (11.6-14.8) H Platelet Count 421 K/UL (150-450) Mean Platelet Volume 5.3 FL (6.5-10.1) L Neutrophils (%) (Auto) 51.7 % (45.0-75.0) Lymphocytes (%) (Auto) 35.9 % (20.0-45.0) Monocytes (%) (Auto) 8.0 % (1.0-10.0) Eosinophils (%) (Auto) 3.2 % (0.0-3.0) H Basophils (%) (Auto) 1.2 % (0.0-2.0) Sodium Level 136 mEQ/L (135-145) Potassium Level 4.0 mEQ/L (3.4-4.9) Chloride Level 98 mEQ/L (98-107) Carbon Dioxide Level 28 mEQ/L (20-30) Anion Gap 10 (5-15) Blood Urea Nitrogen 14 mg/dL (7-23) Creatinine 0.6 mg/dL (0.5-0.9) Estimat Glomerular Filtration Rate > 60 mL/min (>60) Glucose Level 271 mg/dL (74-106) H Calcium Level 9.4 mg/dL (8.6-10.2) Total Bilirubin < 0.2 mg/dL (0.0-1.2) Aspartate Amino Transf (AST/SGOT) 12 U/L (5-40) Alanine Aminotransferase (ALT/SGPT) 36 U/L (3-33) H Alkaline Phosphatase 113 U/L (35-104) H Total Protein 6.8 g/dL (6.6-8.7) Albumin 3.2 g/dL (3.5-5.2) L Globulin 3.6 g/dL Albumin/Globulin Ratio 0.8 (1.0-2.7) L Current Medications Medications (Trade) Dose Ordered Sig/Darlene Route PRN Reason Start Time Stop Time Status Last Admin Dose Admin Acetaminophen (Tylenol) 650 mg Q6H PRN ORAL Mild Pain/Temp > 100.5 09/22/16 01:00 10/22/16 00:59 Aripiprazole (Abilify) 10 mg BEDTIME ORAL 09/22/16 21:00 10/22/16 20:59 09/24/16 21:28 Atenolol (Tenormin) 50 mg DAILY ORAL 09/24/16 12:00 10/24/16 11:59 09/25/16 09:00 Ceftriaxone Sodium/Sodium Chloride (Rocephin/Sodium Chloride) 55 ml @ 110 mls/hr Q24H IVPB 09/24/16 20:00 10/01/16 19:59 09/24/16 21:30 Clonidine HCl (Catapres) 0.2 mg Q8H PRN ORAL For High Blood Pressure 09/22/16 01:00 10/22/16 00:59 09/23/16 17:44 Diphenhydramine HCl (Benadryl) 25 mg Q8H PRN IVP Itching 09/22/16 22:15 10/22/16 22:14 09/22/16 22:35 Doxycycline Monohydrate (Vibramycin) 100 mg EVERY 12 HOURS ORAL 09/22/16 21:00 09/29/16 20:59 09/25/16 09:24 Glipizide (GlipiZIDE XL) 5 mg ACBREAKFAST ORAL 09/25/16 07:30 10/25/16 07:29 09/25/16 09:24 Heparin Sodium (Porcine) (Heparin 5000 units/ml) 5,000 units EVERY 12 HOURS SUBQ 09/22/16 09:00 10/22/16 08:59 09/23/16 08:31 Hydrochlorothiazide 12.5 mg 12.5 mg DAILY ORAL 09/24/16 12:00 10/24/16 11:59 09/25/16 09:24 Insulin Aspart (NovoLOG) 2 units NOVOTIAC SUBQ 09/23/16 06:30 10/23/16 06:29 09/25/16 06:22 Insulin Aspart (NovoLOG) No Dose BEFORE MEALS AND HS SUBQ 09/24/16 21:00 10/24/16 17:29 09/25/16 06:23 Ketorolac Tromethamine (Toradol 30mg) 15 mg Q6H IM 09/22/16 10:00 09/27/16 09:59 09/25/16 09:27 Lisinopril (Zestril) 10 mg DAILY ORAL 09/24/16 12:00 10/24/16 11:59 09/25/16 09:25 Lorazepam (Ativan) 1 mg Q8H PRN ORAL For Anxiety 09/22/16 13:30 09/29/16 13:29 09/24/16 21:29 Metformin HCl (Glucophage) 1,000 mg BID ORAL 09/24/16 18:00 10/24/16 17:59 09/25/16 09:24 Morphine Sulfate (Morphine Sulfate) 2 mg Q4H PRN IVP For Pain ~08/2509/22/16 01:00 09/29/16 00:59 Morphine Sulfate (Morphine Sulfate) 4 mg Q4H PRN IVP For servere Pain ~09/22/16 01:00 09/29/16 00:59 09/22/16 20:52 Ondansetron HCl (Zofran) 4 mg Q6H PRN IVP Nausea & Vomiting 09/22/16 01:00 10/22/16 00:59 Pantoprazole (Protonix) 40 mg DAILY IVP 09/22/16 09:00 10/22/16 08:59 09/25/16 09:26 MERCEDEZ BREWER M.D. Sep 25, 2016 12:21
[2016-09-25] MEDS: metroNIDAZOLE 500mg tab ORAL SCH ×2 (13:51→22:01)
--- NOTE | 2016-09-25 15:59 | General Progress Note ---
Assessment/Plan Status: stable Assessment/Plan 1- Sepsis 2- UTI 3- PID?! 4- IVDA 5- DM- uncontrolled Plan: Interval improvement in WBC and symptoms No evidence of active pyelonephritis Gr + reported blood c/s pending 2 D cho, ok to followup as out patient with po antibiotic at ID service discretion Subjective ROS Limited/Unobtainable: No Constitutional: Reports: no symptoms HEENT: Reports: no symptoms Cardiovascular: Reports: no symptoms Allergies: Coded Allergies: SUMATRIPTAN (Verified Allergy, Unknown, 11/09/15) Objective Last 24 Hour Vital Signs Date Time Temp Pulse Resp B/P Pulse Ox O2 Delivery O2 Flow Rate FiO2 09/25/16 11:56 97.7 77 15 142/90 100 Room Air 09/25/16 09:25 166/103 09/25/16 09:00 80 166/103 09/25/16 08:29 97.9 77 16 167/109 99 Room Air 09/25/16 06:00 97.3 84 18 169/106 98 Room Air 09/25/16 00:00 97.9 83 20 167/89 98 Room Air 09/24/16 20:00 97.0 71 18 155/92 98 Room Air 09/24/16 16:00 97.9 74 20 141/86 99 Room Air Intake and Output 09/24/16 09/25/16 19:00 07:00 Intake Total 340 ml 1055 ml Balance 340 ml 1055 ml Intake Oral 340 ml 1000 ml IV Total 55 ml # Voids 4 3 Laboratory Tests 09/25/16 07:10: White Blood Count 6.2, Red Blood Count 4.32, Hemoglobin 10.8L, Hematocrit 34.3L , Mean Corpuscular Volume 79L, Mean Corpuscular Hemoglobin 25.1L, Mean Corpuscular Hemoglobin Concent 31.6L, Red Cell Distribution Width 15.2H, Platelet Count 421, Mean Platelet Volume 5.3L, Neutrophils (%) (Auto) 51.7, Lymphocytes (%) (Auto) 35.9, Monocytes (%) (Auto) 8.0, Eosinophils (%) (Auto) 3.2H, Basophils (%) (Auto) 1.2, Sodium Level 136, Potassium Level 4.0, Chloride Level 98, Carbon Dioxide Level 28, Anion Gap 10, Blood Urea Nitrogen 14, Creatinine 0.6, Estimat Glomerular Filtration Rate > 60, Glucose Level 271H, Calcium Level 9.4, Total Bilirubin < 0.2, Aspartate Amino Transf (AST/SGOT) 12, Alanine Aminotransferase (ALT/SGPT) 36H, Alkaline Phosphatase 113H, Total Protein 6.8, Albumin 3.2L, Globulin 3.6, Albumin/Globulin Ratio 0.8L Height (Feet): 5 Height (Inches): 5.00 Weight (Pounds): 160 General Appearance: no apparent distress EENT: PERRL/EOMI Neck: supple Cardiovascular: normal rate Respiratory/Chest: lungs clear Abdomen: soft Extremities: non-tender Neurologic: milk drier II-XII grossly normal Tj Baum MD Sep 25, 2016 15:59
[2016-09-25 16:13] VITALS: BP 143/81
[2016-09-25] MEDS: LORazepam 1mg tab ORAL PRN (17:51)
[2016-09-25 20:00] VITALS: BP 167/100
[2016-09-25] MEDS: ARIPiprazole 10mg tab ORAL SCH (20:39)
[2016-09-25] MEDS: cefTRIAXone 1 GM in NS 55 ML IVPB SCH (20:40)
[2016-09-26] VITALS: BP 178/110
[2016-09-26 01:00] VITALS: BP 149/105
[2016-09-26] MEDS: LORazepam 1mg tab ORAL PRN ×2 (02:18→10:13)
[2016-09-26 04:00] VITALS: BP 150/90
[2016-09-26] MEDS: Ketorolac 30mg Inj IM SCH ×3 (04:00→16:00)
[2016-09-26] MEDS: metroNIDAZOLE 500mg tab ORAL SCH ×2 (06:27→12:47)
[2016-09-26] MEDS: Insulin NovoLOG Flexpen S/S (insulin sensitive) SUBQ SCH ×3 (06:34→16:30)
[2016-09-26] MEDS: NovoLOG Insulin Flexpen SUBQ SCH ×3 (06:36→16:50)
[2016-09-26 08:00] VITALS: BP 188/111
[2016-09-26] MEDS: metFORMIN 500mg tab ORAL SCH ×2 (08:43→17:44)
[2016-09-26] MEDS: Heparin 5000 units/ml inj SUBQ SCH (08:45)
[2016-09-26] MEDS: Lisinopril 10mg tab ORAL SCH (08:46)
[2016-09-26] MEDS: cloNIDine 0.2mg Tab ORAL PRN ×2 (08:51→17:45)
[2016-09-26 15:56] VITALS: BP 156/106
[2016-09-26] MEDS ORDERED: METFORMIN HCL500 M1 ORAL (17:09)
[2016-09-26] MEDS ORDERED: GLIPIZIDE5 MG ORAL (17:10)
[2016-09-26 17:45] VITALS: BP 156/106
--- NOTE | 2016-09-27 16:53 | Discharge Summary ---
Discharge Summary Hospital Course Date of Admission Sep 21, 2016 at 21:02 Date of Discharge Sep 26, 2016 at 17:56 Admitting Diagnosis pyelonephritis HPI Reyes Angeles Nicolas Leyva is a 36 year old female who was admitted on Sep 21, 2016 at 21: 02 for Pyelonephritis Hospital Course [id number] Discharge Discharge Disposition Patient was discharged to Home (01) Discharge Diagnoses: Alberta Hubbard NP Sep 27, 2016 16:53
--- NOTE | 2016-09-28 06:30 | Discharge Summary 2 SIG ---
DATE OF ADMISSION: 09/21/2016 DATE OF DISCHARGE: 09/26/2016 CONSULTANTS: 1. Lawrence Carrasquillo M.D. 2. Vince Dowd M.D. BRIEF HOSPITAL COURSE: The patient is a 36-year-old female with prior history of IV drug abuse. The patient complained of pain on the abdomen and back region for one day prior to ER evaluation. She denied chest pain, shortness of breath, fever, or chills. On evaluation at ED, blood work showed leukocytosis. WBC was 26 and urine WBCs too many to count and 3+ leukocyte esterase. Glucose was 343. HCG was negative. CT of the abdomen and pelvis showed stranding on the right kidney consistent with pyelonephritis. There was also colorectal distention compatible with constipation, interval increase in small bowel caliber, most likely ileus and resolution of hydrosalpinx. She was admitted to medical floor for sepsis, pyelonephritis/UTI, PID, abnormal liver function test, and hyponatremia with uncontrolled diabetes. Dr. Dowd was consulted. The patient had a history of right-sided abdominal flank pain radiating down to her groin and noted some fever at home with some dysuria. CT scan did not reveal evidence of stone or obstruction. She was recommended to continue IV antibiotics and hydration. She was given ceftriaxone and doxycycline and was treated empirically for PID as well. HIV was negative. RPR was negative. Chlamydia and gonorrhea serum test is still pending at the time of dictation. She had abdominal ultrasound done that showed hepatosplenomegaly, otherwise negative. There was interval improvement in WBC and symptoms with no evidence of active pyelonephritis. Blood culture showed group B strep. There was a consideration for Pdas-Mndc-Swsuuf syndrome. Surveillance blood culture x2 did not isolate any growth. Blood sugars were monitored and was given Metformin and Glipizide with sliding scale insulin. The patient was eventually discharged home. FINAL DIAGNOSES: 1. Sepsis. 2. Urinary tract infection. 3. Possible pelvic inflammatory disease. 4. Intravenous drug abuse. 5. Diabetes mellitus, out of control. Tj Baum M.D. I have been assigned to dictate discharge summary on this account and I was not involved in the patient's management. Alberta Hubbard N.P. DR: Mable JOB#: [id number] CC: DELFINO
== END 2016-09-26 17:56 | disposition home or self-care (01) | DRG 720 ==
LOC: EMR 17:44 → 4E 21:02 → EDBEDREQ 21:17
DX: A41.9 Sepsis, unspecified organism (principal); E11.65 Type 2 diabetes mellitus with hyperglycemia; I10 Essential (primary) hypertension; E87.1 Hypo-osmolality and hyponatremia; K56.7 Ileus, unspecified; N73.9 Female pelvic inflammatory disease, unspecified; F19.10 Other psychoactive substance abuse, uncomplicated; F15.10 Other stimulant abuse, uncomplicated; F31.9 Bipolar disorder, unspecified; Z88.8 Allergy status to other drugs, medicaments and biological substances; N39.0 Urinary tract infection, site not specified; B95.1 Streptococcus, group B, as the cause of diseases classified elsewhere; K59.00 Constipation, unspecified
CPT/HCPCS: 36415; 74177; 76700; 80053; 81003; 82962; 83036; 83690; 84703; 85007; 85025; 85610; 85730; 86592; 86703; 87040; 87086; 87181; 87324; 87491; 87590; 93306; J1815; J2405; J2765

== ENCOUNTER 2019-05-25 20:00 | Inpatient (IN) | payer MEDICAID ==
[~2019-05-25] VITALS: Ht 165.1 cm; Wt 90.3 kg
[~2019-05-25 20:00] MED LIST changes: +BACTRIM DS TAB1 EAC1 ORAL; +GLIPIZIDE5 MG ORAL; +KEFLEX500 MG ORAL
[2019-05-25 20:50] VITALS: BP 202/110
--- NOTE | 2019-05-25 20:50 | NUR ---
ED Nurse Note: Pt walked into ED for c/o headache since 05/23. Pt also reports generalized body aches, nausea and nasal congestion. Pt BP upon triage is 202/110, pt is noncompliant with blood pressure medication. Pt also is concerned with infection to abscess on L side of face. Pt is aaox4, breathing is normal and unlabored, no acute distress noted. Will continue to monitor.
[2019-05-25] MEDS ORDERED: Vancomycin 1.5 GM in NS 275 ML IVPB ONE (21:00)
[2019-05-25] MEDS ORDERED: Acetaminophen 500mg (ES) tab ORAL ONE (21:00)
[2019-05-25] MEDS ORDERED: Cefepime HCl 1 GM in D5W 55 ML IVPB ONE (21:00)
--- NOTE | 2019-05-25 21:03 | Emergency Room Report ---
History of Present Illness General Chief Complaint: General Complaint Source: Patient Present Illness HPI This is a 39-year-old female with history of diabetes and high blood pressure. She is noncompliant with her medication. Has not taken her medication for months. She also has a history of crystal methamphetamine abuse. She presents with chief complaint of feeling dizzy and weak. Also with the drainage to the skin of her left forehead temporal area. Onset for about a week. Denies any fever chills but nauseous but no vomiting. No diarrhea. Subjective fever and chills. Nothing made it better. Exertion made it worse. Pain is 7 out of 10. Allergies: Coded Allergies: SUMATRIPTAN (Verified Allergy, Unknown, 11/09/15) Patient History Past Medical History: see triage record, old chart reviewed, DM, HTN Past Surgical History: other Pertinent Family History: none Social History: Reports: smoking, drug use Last Menstrual Period: 04/2019 Now: No Immunizations: other Reviewed Nursing Documentation: PMH: Agreed; PSxH: Agreed Nursing Documentation-PMH Hx Hypertension: Yes Hx Diabetes: Yes - type 2 Hx Gastrointestinal Problems: No Hx Neurological Problems: No - migraine Hx Headaches: Yes - Migraine Review of Systems Constitutional: Reports: chills, fever Eye: Denies: eye pain, blurred vision ENT: Denies: ear pain, nose congestion, throat swelling Respiratory: Denies: cough, shortness of breath Cardiovascular: Denies: chest pain, palpitations Gastrointestinal: Reports: nausea; Denies: abdominal pain, diarrhea, vomiting Musculoskeletal: Denies: back pain, joint pain Skin: Denies: rash Neurological: Denies: headache, numbness Endocrine: Denies: increased thirst, increased urine Hematologic/Lymphatic: Denies: easy bruising All Other Systems: negative except mentioned in HPI Physical Exam Vital Signs Date Time Temp Pulse Resp B/P (MAP) Pulse Ox O2 Delivery O2 Flow Rate FiO2 05/25/19 20:19 97.9 97 18 202/110 (140) 97 Vitals with high blood pressure Sp02 EP Interpretation: reviewed, normal General Appearance: well appearing, no apparent distress, alert Head: normocephalic, atraumatic, other - Left temporal area: She is a large indurated area about 3 cm with ulceration and necrotic center. No active drainage. There is surrounding erythema. Eyes: bilateral eye PERRL, bilateral eye EOMI ENT: hearing grossly normal, normal pharynx Neck: full range of motion, supple, no meningismus Respiratory: chest non-tender, lungs clear, normal breath sounds Cardiovascular #1: regular rate, rhythm, no murmur Gastrointestinal: normal bowel sounds, non tender, no mass, no organomegaly, no bruit, non-distended Musculoskeletal: back normal, normal range of motion, gait/station normal Psychiatric: mood/affect normal Procedures Critical Care Time Critical Care Time This patient presents with severe anemia required blood transfusion. Critical care time is 35 minutes. This include but not limited to evaluation, reevaluation, laboratory data and diagnostic study interpretation and discussing case with cyber security consultant. Critical care time is mandated because of the severe anemia requiring blood transfusion. This is to attenuate the risks of metabolic collapse which may lead to cardiovascular collapse and . Medical Decision Making Diagnostic Impression: Primary Impression: Cellulitis and abscess of face Additional Impressions: Diabetes mellitus type II, uncontrolled Qualified Codes: E11.65 - Type 2 diabetes mellitus with hyperglycemia HTN (hypertension) Qualified Codes: I10 - Essential (primary) hypertension Methamphetamine abuse Noncompliance Anemia Qualified Codes: D64.9 - Anemia, unspecified Menorrhagia Qualified Codes: N92.4 - Excessive bleeding in the premenopausal period ER Course This patient presents with high blood pressure, abscess to her left facial area. Noted to have a very low hemoglobin. I recheck it to confirm in its still low. Patient said that her periods are very heavy. No active bleeding now. She is walking around without any difficulty. Blood pressure improved with medication. I wrote for 2 units of blood. Will admit for IV blood transfusion and monitoring. EKG Diagnostic Results Rate: normal Rhythm: NSR ST Segments: no acute changes Rhythm Strip Diag. Results EP Interpretation: yes Rate: 83 Rhythm: NSR, no PVC's, no ectopy Last Vital Signs Date Time Temp Pulse Resp B/P (MAP) Pulse Ox O2 Delivery O2 Flow Rate FiO2 05/25/19 20:19 97.9 97 18 202/110 (140) 97 Status: improved Disposition: ADMITTED INPATIENT Condition: Serious Fidel Caputo MD May 25, 2019 21:03
--- NOTE | 2019-05-25 21:10 | NUR ---
ED Nurse Note: Pt BP is 195/109. Pt is not in monitored bed connected to procurement technician. ERMD aware.
[2019-05-25] MEDS ORDERED: Atenolol 25mg tab ONE (21:20)
[2019-05-25] MEDS ORDERED: Atenolol 25mg tab ORAL ONE (21:30)
[2019-05-25 21:46] LABS: HEMATOCRIT 20.2 % (37.0-47.0); MEAN CORPUSCULAR VOLUME 72 FL (80-99); PLATELET COUNT 351 K/UL (150-450); RED CELL DISTRIBUTION WIDTH 16.5 % (11.6-14.8); WHITE BLOOD COUNT 13.4 K/UL (4.8-10.8)
[2019-05-25 21:52] LABS: ANION GAP 8 mmol/L (5-15); BLOOD UREA NITROGEN 19 mg/dL (7-18); CALCIUM 9.5 MG/DL (8.5-10.1); CARBON DIOXIDE 28 MMOL/L (21-32); CHLORIDE 101 MMOL/L (98-107); CREATININE 0.8 MG/DL (0.55-1.30); POTASSIUM 3.6 MMOL/L (3.5-5.1); SODIUM 136 MMOL/L (136-145)
[2019-05-25 21:55] LABS: HEMOGLOBIN 6.3 G/DL (12.0-16.0)
[2019-05-25 22:27] LABS: APPEARANCE,URINE CLEAR; BILIRUBIN, URINE NEGATIVE (NEGATIVE); COLOR,URINE PALE YELLOW; GLUCOSE, URINE (UA) 1+ (NEGATIVE); KETONES,URINE NEGATIVE (NEGATIVE); LEUKOCYTE ESTERASE ,URINE 1+ (NEGATIVE); NITRITE,URINE NEGATIVE (NEGATIVE); PH,URINE 6.5 (4.5-8.0); PROTEIN,URINE NEGATIVE (NEGATIVE); UROBILINOGEN,URINE NORMAL MG/DL (0.0-1.0)
[2019-05-25 22:43] LABS: HEMATOCRIT 19.1 % (37.0-47.0); MEAN CORPUSCULAR VOLUME 72 FL (80-99); PLATELET COUNT 333 K/UL (150-450); RED BLOOD COUNT 2.64 M/UL (4.20-5.40); RED CELL DISTRIBUTION WIDTH 16.5 % (11.6-14.8); WHITE BLOOD COUNT 11.8 K/UL (4.8-10.8)
[2019-05-25] MEDS ORDERED: Vancomycin 1.5gm vial IVPB ONE (22:45)
[2019-05-25 22:47] LABS: HEMOGLOBIN 5.9 G/DL (12.0-16.0)
--- NOTE | 2019-05-25 23:00 | NUR ---
HAND-OFF: Report given to Dipika Bethea and endorsed plan of care. Pt is in no acute distress at this time. Pt moved to bed 4 and placed on tearoom host/hostess.
[2019-05-26 00:39] VITALS: BP 145/85
--- NOTE | 2019-05-26 00:40 | NUR ---
ED Nurse Note: pt's blood pressure is 145/85 after administration of hydralazine
--- NOTE | 2019-05-26 01:54 | NUR ---
ED Nurse Note: per ERMD request, pt will stay in ED until 2nd unit of packed RBC is started
--- NOTE | 2019-05-26 04:02 | NUR ---
ED Nurse Note: report given to ADARSH Biggs
--- NOTE | 2019-05-26 04:15 | NUR ---
NURSE NOTES: Received report from ADARSH Bethea. Patient was transferred from ED to Telemetry via gurney, without any incident. Patient is ongoing blood transfusion 2 "u" PRBC AB(+). Vital signs taken which revealed T=97.7, NC=78, RR=20, MU=379/61, O2 pnp=581%. Patient is awake, A/Ox4, able to make needs known, transferred to hospital bed via ambulation with assistance, placed tele box on SR, on the monitor, 78 bpm. Patient felt nauseous and complained of pain at left shoulder radiating to right neck, with a pain scale of 7/10. Offered warm compress to alleviate pain. Body assessment done with indurated ulcerating abscess located at left temporal forehead. Wound photo uploaded. Bed at lowest position, brakes on, siderailsx2. Call light within reach. Will continue to monitor. Addendum: 05/26/19 at 0636 by Dian Ayala RN Ongoing 2nd unit of PRBC A(+). Addendum: 05/26/19 at 0654 by Dian Ayala RN Bridging orders done by YUE NGUYEN.
--- NOTE | 2019-05-26 04:45 | NUR ---
NURSE NOTES: Paged Dr. Saha and spoke with [facility] phone [facility], for admitting orders. Awaiting for callback.
--- NOTE | 2019-05-26 05:30 | NUR ---
NURSE NOTES: VRE/CRE and MRSA wound sent to lab.
--- NOTE | 2019-05-26 06:15 | NUR ---
NURSE NOTES: 2nd unit of BT PRBC done. No adverse reaction. Vital signs taken which revealed T=96.7, HR=85, RR=20, NO=057/94, O2 sat=99%.Patient is in stable condition.
--- NOTE | 2019-05-26 07:15 | NUR ---
HAND-OFF: Report given to ADARSH Ibrahim. Plan of care endorsed.
--- NOTE | 2019-05-26 07:20 | NUR ---
NURSE NOTES: pt in bed resting. Pt AOx4, is not complaining of pain at this moment. continue radiation monitor no signs of cardiac or respiratory distress at this time. Pt admitted to unit with an open wound on the L side of confucianism. Bed locked and lowest position, call light within reach, rails up x2, bed alarm on for safety
[2019-05-26 08:50] VITALS: BP 155/97
--- NOTE | 2019-05-26 10:33 | NUR ---
CASE MANAGEMENT:INITIAL REVIEW 39 YR OLD FEMALE WALKED IN TO ED FROM HOME CC;GENERAL COMPLAINT SI;ANEMIA. FACIAL ABSCESS WITH CELLULITIS. 99.0 97 16 202/110 97% ON RA WBC 13.4 H/H 5.9/19.1 BUN 19 BG 195 UA+ GLUCOSE, LEUKOCYTE TOX+ AMPHETAMINES IS;IVF NS BOLUS VANCOMYCIN IV ACETAMINOPHEN PO CEFEPINE IV ATENALOL PO HYDRALAZINE IV ADMITTED TO MED SURG MED SURG STATUS DCP;FROM HOME
[2019-05-26 11:18] LABS: EOSINOPHILS % (AUTO) 0.6 % (0.0-3.0); HEMATOCRIT 25.6 % (37.0-47.0); HEMOGLOBIN 8.3 G/DL (12.0-16.0); MEAN CORPUSCULAR VOLUME 76 FL (80-99); NEUTROPHILS % (AUTO) 70.4 % (45.0-75.0); PLATELET COUNT 348 K/UL (150-450); RED BLOOD COUNT 3.38 M/UL (4.20-5.40); RED CELL DISTRIBUTION WIDTH 15.8 % (11.6-14.8); WHITE BLOOD COUNT 11.1 K/UL (4.8-10.8)
[2019-05-26 12:00] VITALS: BP 177/102
[2019-05-26] MEDS ORDERED: GlipiZIDE 5mg tab ORAL SCH (12:22)
[2019-05-26] MEDS ORDERED: ARIPiprazole 10mg tab ORAL SCH (12:22)
[2019-05-26] MEDS ORDERED: Atenolol 25mg tab ORAL SCH (12:22)
[2019-05-26] MEDS ORDERED: LORazepam 1mg tab ORAL PRN (12:23)
[2019-05-26] MEDS ORDERED: Lisinopril 10mg tab ORAL SCH (12:23)
[2019-05-26] MEDS: metFORMIN 500mg tab ORAL SCH ×2 (13:08→17:23)
[2019-05-26] MEDS: Vancomycin 1gm in D5W 275ml IVPB SCH ×2 (14:44→21:05)
[2019-05-26] MEDS: metroNIDAZOLE 500mg tab ORAL SCH ×2 (14:44→20:59)
[2019-05-26] MEDS ORDERED: HYDROcodone/Acetamin 5/325 tab ORAL PRN (15:28)
[2019-05-26 16:10] VITALS: BP 154/88
--- NOTE | 2019-05-26 17:16 | Consultation ---
History of Present Illness General Date patient seen: May 26, 2019 Reason for Hospitalization: General Complaint Present Illness HPI This is a 39-year-old female with history of diabetes , HTN, anemia, hydradenitis who is noncompliant with her medication and states that she has not taken her medication for months presents with drainage of left temporal wound. She also has a history of crystal methamphetamine abuse and drug use. She presents with chief complaint of feeling dizzy and weak as well as drainage to the skin of her left forehead temporal area. Onset for about a week. Denies any fever chills but nauseous but no vomiting. No diarrhea. Subjective fever and chills. Nothing made it better. Exertion made it worse. Pain is 7 out of 10. states believes it is hydradenitis since she had it in axilla prior. states 1-2 weeks ago notes drainage from wound in left temporal and has been manipulating it since without proper care Allergies: Coded Allergies: SUMATRIPTAN (Verified Allergy, Unknown, 11/09/15) Medication History No Active Prescriptions or Reported Meds Patient History History Provided By: Patient Healthcare decision maker Resuscitation status Full Code Advanced Directive on File Past Medical/Surgical History Past Medical/Surgical History: (1) Tonsillitis, phlegmonous (2) Acute epiglottiditis (3) Peritonsillar abscess (4) Type 2 diabetes mellitus without complication (5) Bipolar depression (6) Pyelonephritis (7) Diabetes (8) Skin infection (9) Menorrhagia (10) Diabetes mellitus type II, uncontrolled (11) Methamphetamine abuse (12) Noncompliance (13) Anemia (14) Cellulitis and abscess of face (15) HTN (hypertension) Review of Systems Review of Symptoms General ROS: no weight loss or fever Psychological ROS: no depression or mood changes, no memory loss Ophthalmic ROS: no visual changes or eye irritation see below ENT ROS: no nasal congestion, hearing loss, dizziness Allergy and Immunology ROS: no allergic symptoms or urticaria Hematological and Lymphatic ROS: no swollen glands, unusual bleeding or bruising Endocrine ROS: no polyuria, polydipsia, weight changes, temperature intolerance Respiratory ROS: no cough, shortness of breath, or wheezing Cardiovascular ROS: no chest pain or dyspnea on exertion Gastrointestinal ROS: denies abdominal pain, bright red blood in stool. Musculoskeletal ROS: no myalgias or arthralgias Neurological ROS: no TIA or stroke symptoms Dermatological ROS: no new or changing skin lesions, rashes or pruritis Physical Exam Physical Exam General appearance: alert, cooperative, no distress, appears stated age Head: Normocephalic, without obvious abnormality, atraumatic Eyes: conjunctivae/corneas clear. PERRL, EOM's intact. Fundi benign see below Throat: Lips, mucosa, and tongue normal. Teeth and gums normal Neck: supple, symmetrical, trachea midline, no adenopathy, thyroid: not enlarged, symmetric, no tenderness/mass/nodules, no carotid bruit and no JVD Lungs: clear to auscultation bilaterally Heart: regular rate and rhythm, S1, S2 normal, no murmur, click, rub or gallop Abdomen: soft, non-tender. Bowel sounds normal. No masses, no organomegaly Extremities: extremities normal, atraumatic, no cyanosis or edema Pulses: 2+ and symmetric Skin: Skin color, texture, turgor normal. No rashes or lesions Neurologic: Grossly normal Last 24 Hour Vital Signs Date Time Temp Pulse Resp B/P (MAP) Pulse Ox O2 Delivery O2 Flow Rate FiO2 05/26/19 16:10 97.7 75 20 154/88 (110) 100 05/26/19 13:08 177/106 05/26/19 12:28 81 187/120 05/26/19 12:00 97.0 76 18 177/102 (127) 100 05/26/19 12:00 85 05/26/19 09:00 Room Air 05/26/19 08:50 97.0 76 155/97 (116) 100 05/26/19 08:00 78 05/26/19 04:35 Room Air 05/26/19 04:15 78 05/26/19 04:07 98.0 73 19 05/26/19 04:02 98.2 75 15 05/26/19 04:00 98.2 75 15 146/86 97 Room Air 05/26/19 03:57 98.2 75 15 05/26/19 02:55 98.3 74 14 05/26/19 01:55 98.1 75 15 05/26/19 01:40 98.0 74 15 05/26/19 01:25 98.7 75 18 05/26/19 01:20 99.2 73 16 05/26/19 01:15 99.0 74 16 05/26/19 00:39 145/85 05/26/19 00:29 195/107 05/25/19 21:30 95 195/107 05/25/19 20:50 97.9 97 18 202/110 97 05/25/19 20:50 97 18 Room Air 05/25/19 20:19 97.9 97 18 202/110 (140) 97 Intake and Output 05/25/19 05/26/19 19:00 07:00 Intake Total 250 ml Balance 250 ml Intake Oral 0 ml Blood Product 250 ml # Voids 1 # Bowel Movements 1 Laboratory Tests Test 05/25/19 21:15 05/25/19 22:00 05/25/19 22:30 05/26/19 11:00 White Blood Count 13.4 K/UL (4.8-10.8) H 11.8 K/UL (4.8-10.8) H 11.1 K/UL (4.8-10.8) H Red Blood Count 2.80 M/UL (4.20-5.40) L 2.64 M/UL (4.20-5.40) L 3.38 M/UL (4.20-5.40) L Hemoglobin 6.3 G/DL (12.0-16.0) *L 5.9 G/DL (12.0-16.0) *L 8.3 G/DL (12.0-16.0) #L Hematocrit 20.2 % (37.0-47.0) L 19.1 % (37.0-47.0) L 25.6 % (37.0-47.0) #L Mean Corpuscular Volume 72 FL (80-99) L 72 FL (80-99) L 76 FL (80-99) L Mean Corpuscular Hemoglobin 22.4 PG (27.0-31.0) L 22.3 PG (27.0-31.0) L 24.5 PG (27.0-31.0) L Mean Corpuscular Hemoglobin Concent 31.0 G/DL (32.0-36.0) L 30.7 G/DL (32.0-36.0) L 32.3 G/DL (32.0-36.0) Red Cell Distribution Width 16.5 % (11.6-14.8) H 16.5 % (11.6-14.8) H 15.8 % (11.6-14.8) H Platelet Count 351 K/UL (150-450) 333 K/UL (150-450) 348 K/UL (150-450) Mean Platelet Volume 5.5 FL (6.5-10.1) L 5.9 FL (6.5-10.1) L 5.0 FL (6.5-10.1) L Neutrophils (%) (Auto) % (45.0-75.0) % (45.0-75.0) 70.4 % (45.0-75.0) Lymphocytes (%) (Auto) % (20.0-45.0) % (20.0-45.0) 22.0 % (20.0-45.0) Monocytes (%) (Auto) % (1.0-10.0) % (1.0-10.0) 6.0 % (1.0-10.0) Eosinophils (%) (Auto) % (0.0-3.0) % (0.0-3.0) 0.6 % (0.0-3.0) Basophils (%) (Auto) % (0.0-2.0) % (0.0-2.0) 1.0 % (0.0-2.0) Differential Total Cells Counted 100 100 Neutrophils % (Manual) 77 % (45-75) H 73 % (45-75) Lymphocytes % (Manual) 15 % (20-45) L 21 % (20-45) Monocytes % (Manual) 6 % (1-10) 5 % (1-10) Eosinophils % (Manual) 1 % (0-3) 0 % (0-3) Basophils % (Manual) 1 % (0-2) 1 % (0-2) Band Neutrophils 0 % (0-8) 0 % (0-8) Platelet Estimate Adequate Adequate Platelet Morphology Normal Normal Hypochromasia 1+ 1+ Anisocytosis 1+ 1+ Sodium Level 136 MMOL/L (136-145) Potassium Level 3.6 MMOL/L (3.5-5.1) Chloride Level 101 MMOL/L (98-107) Carbon Dioxide Level 28 MMOL/L (21-32) Anion Gap 8 mmol/L (5-15) Blood Urea Nitrogen 19 mg/dL (7-18) H Creatinine 0.8 MG/DL (0.55-1.30) Estimat Glomerular Filtration Rate > 60 mL/min (>60) Glucose Level 195 MG/DL (74-106) H Calcium Level 9.5 MG/DL (8.5-10.1) Urine Color Pale yellow Urine Appearance Clear Urine pH 6.5 (4.5-8.0) Urine Specific Lolo 1.010 (1.005-1.035) Urine Protein Negative (NEGATIVE) Urine Glucose (UA) 1+ (NEGATIVE) H Urine Ketones Negative (NEGATIVE) Urine Blood Negative (NEGATIVE) Urine Nitrite Negative (NEGATIVE) Urine Bilirubin Negative (NEGATIVE) Urine Urobilinogen Normal MG/DL (0.0-1.0) Urine Leukocyte Esterase 1+ (NEGATIVE) H Urine RBC 0-2 /HPF (0 - 2) Urine WBC 0-2 /HPF (0 - 2) Urine Squamous Epithelial Cells Few /LPF (NONE/OCC) Urine Bacteria Few /HPF (NONE) Urine Opiates Screen Negative (NEGATIVE) Urine Barbiturates Screen Negative (NEGATIVE) Phencyclidine (PCP) Screen Negative (NEGATIVE) Urine Amphetamines Screen Positive (NEGATIVE) H Urine Benzodiazepines Screen Negative (NEGATIVE) Urine Cocaine Screen Negative (NEGATIVE) Urine Marijuana (THC) Screen Negative (NEGATIVE) Microbiology Date/Time Source Procedure Growth Status 05/26/19 05:40 Rectum Received Height (Feet): 5 Height (Inches): 5.00 Weight (Pounds): 199 Medications Current Medications Medications (Trade) Dose Ordered Sig/Darlene Route PRN Reason Start Time Stop Time Status Last Admin Dose Admin Acetaminophen/ Hydrocodone Bitart ([place] 10/325) 1 tab Q6H PRN ORAL For Pain (7-10) 05/26/19 15:30 06/02/19 15:29 Acetaminophen/ Hydrocodone Bitart ([place]joy 5/325) 1 tab Q6H PRN ORAL For Pain (4-6) 05/26/19 15:28 06/02/19 15:27 Aripiprazole (Abilify) 10 mg DAILY ORAL 05/26/19 12:22 07/10/19 12:21 05/26/19 12:29 Atenolol (Tenormin) 25 mg DAILY ORAL 05/26/19 12:22 06/25/19 12:21 05/26/19 12:28 Doxycycline Monohydrate (Doxycycline Monohydrate) 100 mg EVERY 12 HOURS ORAL 05/26/19 21:00 06/02/19 20:59 Glipizide (Glucotrol) 2.5 mg DAILY ORAL 05/26/19 12:22 06/25/19 12:21 05/26/19 12:29 Lisinopril (ZestriL) 10 mg DAILY ORAL 05/26/19 12:23 06/25/19 12:22 05/26/19 13:08 Lorazepam (Ativan) 1 mg TIDPRN PRN ORAL anxiety 05/26/19 12:23 06/02/19 12:22 Metformin HCl (Glucophage) 1,000 mg TWICE A DAY ORAL 05/26/19 12:23 06/25/19 12:22 05/26/19 13:08 Metronidazole (Flagyl) 500 mg EVERY 8 HOURS ORAL 05/26/19 14:00 06/02/19 13:59 05/26/19 14:44 Vancomycin HCl (Vanco rx to dose) 1 ea DAILY PRN MISC Per rx protocol 05/26/19 11:45 06/25/19 11:44 Vancomycin HCl 1 gm/Dextrose 275 ml @ 183.708 mls/hr Q8HR IVPB 05/26/19 14:00 05/31/19 13:59 05/26/19 14:44 Assessment/Plan Problem List: (1) Cellulitis and abscess of face Assessment & Plan: left facial abscess 2 weeks old without care and significant manipulation by patient states she has been scratching it for weeks and has not let it heal 2cm x 2cm x 1cm deep ulcerated wound in left temporal with slough non excisional debridement performed and wound cleaned dressings applied care instructions given wash daily gauze packing and dressing TID and prn saturation okay to showerwill follow with recs thank you ICD Codes: L03.211 - Cellulitis of face; L02.01 - Cutaneous abscess of face SNOMED: [id number] Tyrell Graham May 26, 2019 17:16
--- NOTE | 2019-05-26 19:30 | Consultation ---
DATE OF CONSULTATION: 05/26/2019 INFECTIOUS DISEASE CONSULTATION CONSULTING PHYSICIAN: Austin Collazo M.D. REFERRING PHYSICIAN: Silvino Saha M.D. REASON FOR CONSULTATION: Left facial abscess. HISTORY OF PRESENT ILLNESS: This is a 39-year-old lady with history of diabetes and high blood pressure, who came in with nausea, vomiting, and dizziness along with fever and chills. She was found to have left face abscess and an Infectious Diseases consultation has been obtained for antibiotics. PAST MEDICAL HISTORY: 1. History of diabetes. 2. History of hypertension. SOCIAL HISTORY: She is a smoker. She drinks alcohol. She smokes crystal methamphetamine. FAMILY HISTORY: Positive for prostate cancer in her grandfather. REVIEW OF SYSTEMS: RESPIRATORY: She has fever and chills. No cough. No shortness of breath or chest pain. CARDIAC: No chest pain. No palpitations. She has dizziness. No syncope. GASTROINTESTINAL: She has nausea and vomiting. No abdominal pain or diarrhea. MEDICATIONS: As an inpatient, medications pending. ALLERGIES: Sumatriptan noted. PHYSICAL EXAMINATION: VITAL SIGNS: Temperature 97, T-max of 98.2, pulse 76, respiratory rate 19, and blood pressure 155/97. O2 saturation 100%. HEENT: Pupils are equally reactive to light and accommodation. Mouth appears clean without thrush. Left forehead erythema noted. Left eyelid erythema noted. NECK: Supple. No adenopathy. No JVD. CARDIOVASCULAR: Regular rate and rhythm. No murmurs. LUNGS: Clear to auscultation bilaterally. No crackles. No wheezes. ABDOMEN: Soft, nontender. No organomegaly. EXTREMITIES: No cyanosis, no clubbing, no edema. LABORATORY AND DIAGNOSTIC DATA: White count 11.1, hemoglobin 8.3, hematocrit 25.6, MCV 76, and platelet count 348,000. Sodium 136, potassium 3.6, chloride 101, bicarb 28, BUN 19, and creatinine 0.8. Glucose 195. Calcium 9.5. UA is showing 0 to 2 white cells. ASSESSMENT: This is a 39-year-old lady with history of diabetes and hypertension with history of crystal methamphetamine use, who comes in with nausea, vomiting, fever, and chills and is found to have, 1. Left facial abscess. 2. Diabetes. 3. Hypertension. 4. Leukocytosis is improving. PLAN: 1. We will start the patient on IV vancomycin. 2. We will follow up the patient clinically. I would like to thank Dr. Saha for this consultation. Austin Collazo M.D. DR: MORE JOB#: [id number] CC:
--- NOTE | 2019-05-26 19:43 | NUR ---
HAND-OFF: Report given to Haleigh/ADARSH, pt in stable condition, she has an order for med/surg.
--- NOTE | 2019-05-26 19:45 | History and Physical Report ---
DATE OF ADMISSION: 05/25/2019 HISTORY OF PRESENT ILLNESS: This is a 39-year-old female, came to the emergency room for having a feeling of generalized weakness and has a wound on the left forehead and diabetes. The patient was found to have severe anemia where hemoglobin was 6 and was admitted and given type and cross transfuse 3 units. The patient is currently alert and awake sleeping. PAST MEDICAL HISTORY: history of acute epiglottitis, tonsillitis, peritonsillar abscess, diabetes. MEDICATIONS: See the list. ALLERGY: NKA. FAMILY HISTORY: Noncontributory. PHYSICAL EXAMINATION: GENERAL: The patient is currently in the bed, in no distress. VITAL SIGNS: Blood pressure 155/97, pulse 76, no fever. CHEST: Bilaterally clear. CARDIOVASCULAR: Regular rhythm. ABDOMEN: Soft. EXTREMITIES: CCE, scalp wound. LABORATORY AND DIAGNOSTIC: Her hemoglobin is 5.9. Chemistry panel is unremarkable. Glucose was 195. Urine is negative. Her imaging, recent ultrasound, abdomen CT was negative. The patient had neck CT. Left facial skin thickening and infiltration of subcutaneous fat, consistent with facial cellulitis, evidence of abscess. ASSESSMENT: 1. Facial cellulitis and abscess. 2. Anemia. 3. Diabetes. 4. Hypertension. PLAN: We will add antibiotics, ID consult, and continue sliding scale, and Accu-Chek. Continue home medications. I discussed with the ID, discussed with the GI as well as I discussed with the Surgery consult. Bang Saha M.D. DR: JEREMIAS JOB#: [id number] CC:
--- NOTE | 2019-05-26 19:55 | NUR ---
NURSE NOTES: Received from ADARSH Ibrahim. Patient asleep. Bed in lowest position.Call light within reach.Will continue to monitor.
[2019-05-26] MEDS ORDERED: Doxycycline Monohydrate 100mg ORAL SCH (21:00)
[2019-05-26] MEDS: HYDROcodone/Acetamin 10/325 tab ORAL PRN (21:15)
[2019-05-27] MEDS: HYDROcodone/Acetamin 10/325 tab ORAL PRN (03:09)
--- NOTE | 2019-05-27 05:10 | NUR ---
NURSE NOTES: PATIENT WAS SAFELY TRANSFERRED TO UNIT VIA HOSPITAL BED. REPORT RECEIVED FROM ADARSH RAMIREZ. BELONGING LIST REVIEWED AND SIGNED. PATIENT IS AWAKE, AAOX4, ON ROOM AIR, NO ACUTE DISTRESS NOTED. IV INTACT AND PATENT. CHANGED DRESSINGS ON LEFT JAIN. BED IS LOCKED AND LOW, BED ALARMS ACTIVE, SIDE RAILS UP X2 AND CALL LIGHT IS WITHIN REACH. WILL CONTINUE TO MONITOR.
--- NOTE | 2019-05-27 05:14 | NUR ---
HAND-OFF: Report given to Sydney, RN. Patient transferred to [facility]. Tele box removed. Belongings remained with patient. Patient stable.
[2019-05-27] MEDS ORDERED: HYDROcodone/Acetamin 10/325 tab ORAL PRN (05:33)
[2019-05-27] MEDS ORDERED: HYDROcodone/Acetamin 5/325 tab ORAL PRN (05:34)
[2019-05-27] MEDS ORDERED: LORazepam 1mg tab ORAL PRN (05:34)
[2019-05-27] MEDS ORDERED: Vancomycin 1 GM in D5W 275 ML IVPB SCH (06:00)
[2019-05-27] MEDS ORDERED: metroNIDAZOLE 500mg tab ORAL SCH (06:00)
[2019-05-27] MEDS ORDERED: metFORMIN 500mg tab ORAL SCH (06:30)
[2019-05-27] MEDS ORDERED: GlipiZIDE 5mg tab ORAL SCH (06:30)
[2019-05-27 07:24] LABS: BASOPHILS % (AUTO) 1.1 % (0.0-2.0); HEMOGLOBIN 8.2 G/DL (12.0-16.0); LYMPHOCYTES % (AUTO) 21.6 % (20.0-45.0); MEAN CORPUSCULAR VOLUME 76 FL (80-99); MONOCYTES % (AUTO) 6.4 % (1.0-10.0); NEUTROPHILS % (AUTO) 68.8 % (45.0-75.0); PLATELET COUNT 346 K/UL (150-450); RED BLOOD COUNT 3.28 M/UL (4.20-5.40); WHITE BLOOD COUNT 14.1 K/UL (4.8-10.8)
--- NOTE | 2019-05-27 07:25 | NUR ---
NURSE NOTES: PATIENT is A/A/OX4 IN BED HAVING BREAKFAST. ABLE TO VERBALIZE NEEDS. ON ROOM AIR, DRSG ON LEFT TEMPORAL DRY AND INTACT. NO ACUTE DISTRESS NOTED. IV SITE INTACT AND PATENT. BED IS LOCKED AND LOW, BED ALARMS ACTIVE, SIDE RAILS UP X2 AND CALL LIGHT IS WITHIN EASY REACH. WILL CONTINUE TO MONITOR.
[2019-05-27 07:40] LABS: ANION GAP 9 mmol/L (5-15); BLOOD UREA NITROGEN 17 mg/dL (7-18); CALCIUM 8.5 MG/DL (8.5-10.1); CARBON DIOXIDE 25 MMOL/L (21-32); CHLORIDE 106 MMOL/L (98-107); CREATININE 0.8 MG/DL (0.55-1.30); POTASSIUM 3.6 MMOL/L (3.5-5.1); SODIUM 140 MMOL/L (136-145)
--- NOTE | 2019-05-27 07:46 | NUR ---
HAND-OFF: Report given to REGINE Licona.
[2019-05-27 08:00] VITALS: BP 149/76
[2019-05-27 08:35] VITALS: BP 149/76
[2019-05-27] MEDS ORDERED: Atenolol 25mg tab ORAL SCH (09:00)
[2019-05-27] MEDS ORDERED: Doxycycline Monohydrate 100mg ORAL SCH (09:00)
[2019-05-27] MEDS ORDERED: ARIPiprazole 10mg tab ORAL SCH (09:00)
[2019-05-27] MEDS ORDERED: Lisinopril 10mg tab ORAL SCH (09:00)
[2019-05-27] MEDS ORDERED: METFORMIN HCL1000 M1 ORAL (10:04)
[2019-05-27] MEDS ORDERED: ACETAMINOPHEN500 M5 ORAL (10:05)
[2019-05-27] MEDS ORDERED: BACTRIM DS TAB1 EAC1 ORAL (10:06)
[2019-05-27] MEDS ORDERED: METRONIDAZOLE500 MG ORAL (10:07)
[2019-05-27] MEDS ORDERED: ATENOLOL50 MG ORAL (10:07)
[2019-05-27] MEDS ORDERED: FERROUS SULFAT325 MG ORAL (10:08)
[2019-05-27] MEDS ORDERED: FOLIC ACID1 MG ORAL (10:09)
--- NOTE | 2019-05-27 10:36 | NUR ---
REPRINT SORTER NOTE SW met w/ pt to assess pt's needs/concern. Pt presents as A&O 4x and labile. Pt has been living on and off at her mother's place at [address], [place] [address]. Pt receives food stamp only. Pt has 2 minor children living w/ their father. Pt uses tobacco and methamphetamine abuse. Pt declined counseling/tx intervention/resource on substance abuse rehab program. PT denies SI/HI. Pt plans to return her mother's residence upon DC. Pt states her mother Fifi Lara [phone] will p/u pt upon DC. Pt did not share any further concern/needs. Krystal Cevallos will assist pt w/ [employer] application. SW provided a list of [facility] for her medication until her [employer] becomes active. Pt verbalized understanding. Signed: 05/27/19 at 1040 by CB LUONG <Co-Signature Required>
--- NOTE | 2019-05-27 10:44 | GI Initial Consult Note ---
History of Present Illness General Date patient seen: May 27, 2019 Time patient seen: 10:39 Reason for Hospitalization: General Complaint Referring physician: TOM Reason for Consultation: ANEMIA Present Illness HPI This is a 39-year-old female with history of diabetes and high blood pressure. She is noncompliant with her medication. Has not taken her medication for months. She also has a history of crystal methamphetamine abuse. She presents with chief complaint of feeling dizzy and weak. Also with the drainage to the skin of her left forehead temporal area. Onset for about a week. Denies any fever chills but nauseous but no vomiting. No diarrhea. Subjective fever and chills. Nothing made it better. Exertion made it worse. Pain is 7 out of 10. GI consulted for anemia. Pt seen, awake A&Ox4 NAD with no active s/sx of N/V/ D. Patient denies any signs or symptoms of GI bleed. Denies any hematemesis or coffee grounds, melena or hematochezia. No history of endoscopy or colonoscopy. Patient initially presented with a low Hgb of 6.3. Patient stated she had recent heavy menses. Utox positive for amphetamines. Home Meds Reported Medications Folic Acid* (FOLIC ACID*) 1 Mg Tablet, 1 MG ORAL DAILY for VITAMIN, #30 TAB 05/27/19 Ferrous Sulfate* (FERROUS SULFATE*) 325 Mg Tablet, 325 MG ORAL TWICE A DAY for ANEMIA, #60 TAB 0 Refills 05/27/19 Atenolol* (TENORMIN*) 50 Mg Tablet, 50 MG ORAL QHS for HEARTRATE/B/P, #30 TAB 05/27/19 Metronidazole* (FLAGYL*) 500 Mg Tablet, 500 MG ORAL THREE TIMES A DAY for ANTIBIOTIC, #21 TAB 0 Refills 05/27/19 Trimethoprim/Sulfamethoxazole 160/800* (BACTRIM DS TABLET*) 1 Each Tablet, 1 TAB ORAL TWICE A DAY for ANTIBIOTIC, #14 TAB 05/27/19 Acetaminophen (Acetaminophen) 500 Mg Tablet, 500 MG ORAL TID PRN for For Pain, # 30 TAB 05/27/19 Metformin Hcl* (METFORMIN HCL*) 1,000 Mg Tablet, 1 GM ORAL BID for BLOOD SUGAR, #60 TAB 05/27/19 Discontinued Reported Medications Glipizide* (GLIPIZIDE*) 5 Mg Tablet, 2.5 MG ORAL DAILY, TAB 09/26/16 Metformin Hcl* (METFORMIN HCL*) 500 Mg Tablet, 500 MG ORAL TID, TAB 09/26/16 Lorazepam* (ATIVAN*) 1 Mg Tablet, 1 MG ORAL THREE TIMES A DAY PRN for For Anxiety 09/08/16 Aripiprazole* (ABILIFY*) 10 Mg Tablet, 10 MG ORAL DAILY, TAB 09/08/16 Metformin Hcl* (METFORMIN HCL*) 500 Mg Tablet, 500 MG ORAL TWICE A DAY, TAB 11/09/15 Lisinopril/Hydrochlorothiazide (ZESTORETIC 10-12.5 MG TABLET) 1 Each Tablet, 1 EACH PO, TAB 11/09/15 Discontinued Scripts Cephalexin* (KEFLEX*) 500 Mg Capsule, 500 MG ORAL Q6H, #28 CAP 0 Refills Prov:Parker Jules MD 12/12/16 Trimethoprim/Sulfamethoxazole 160/800* (BACTRIM DS TABLET*) 1 Each Tablet, 1 TAB ORAL Q12H, #14 TAB 0 Refills Prov:Parker Jules MD 12/12/16 Metformin Hcl* (METFORMIN HCL*) 500 Mg Tablet, 500 MG ORAL TWICE A DAY, #60 TAB Prov:Parker Jules MD 12/12/16 Atenolol* (TENORMIN*) 25 Mg Tablet, 25 MG ORAL DAILY, #30 TAB Prov:Parker Jules MD 12/12/16 Hydrocodone Bit/Acetaminophen 10-325* ([place] 10-325*) 1 Each Tablet, 1 TAB ORAL Q6H PRN for For Pain, #20 TAB 0 Refills PRN PAIN Prov:Roxann Palacios DO 06/16/16 Hydrocodone/Acetaminophen 5-325* (HYDROCODONE/ACETAMINOPHEN 5-325*) 1 Each Tablet, 1 TAB ORAL Q6H PRN for For Pain, #20 TAB 0 Refills Prov:Fidel Caputo MD 06/16/16 Metronidazole* (FLAGYL*) 500 Mg Tablet, 500 MG ORAL THREE TIMES A DAY, #42 TAB Prov:Fidel Caputo MD 06/16/16 Doxycycline Monohydrate* (DOXYCYCLINE MONOHYDRATE*) 100 Mg Capsule, 100 MG ORAL Q12H, #28 CAP 0 Refills Prov:Fidel Caputo MD 06/16/16 Amoxicillin/Potassium Clav 875-125 Mg Tab* (AMOX TR-K CLV 875-125 MG TAB*) 1 Each Tablet, 875 MG ORAL BID, #20 TAB Prov:Oswaldo Hanna MD 11/10/15 Med list reviewed/reconciled: Yes Allergies: Coded Allergies: SUMATRIPTAN (Verified Allergy, Unknown, 11/09/15) Patient History History Provided By: Patient, Medical Record PMH Narrative Past Medical History: see triage record, old chart reviewed, DM, HTN Past Surgical History: other Pertinent Family History: none Social History: Reports: smoking, drug use Last Menstrual Period: 04/2019 Now: No Immunizations: other Reviewed Nursing Documentation: PMH: Agreed; PSxH: Agreed Nursing Documentation-PMH Hx Hypertension: Yes Hx Diabetes: Yes - type 2 Hx Gastrointestinal Problems: No Hx Neurological Problems: No - migraine Hx Headaches: Yes - Migraine Social History: Reports: drug use Review of Systems All Other Systems: negative except mentioned in HPI Physical Exam Vital Signs Date Time Temp Pulse Resp B/P (MAP) Pulse Ox O2 Delivery O2 Flow Rate FiO2 05/25/19 20:19 97.9 97 18 202/110 (140) 97 05/25/19 20:50 Room Air Sp02 EP Interpretation: reviewed, normal Labs Laboratory Tests Test 05/26/19 11:00 05/27/19 06:54 White Blood Count 11.1 K/UL (4.8-10.8) H 14.1 K/UL (4.8-10.8) H Red Blood Count 3.38 M/UL (4.20-5.40) L 3.28 M/UL (4.20-5.40) L Hemoglobin 8.3 G/DL (12.0-16.0) #L 8.2 G/DL (12.0-16.0) L Hematocrit 25.6 % (37.0-47.0) #L 25.0 % (37.0-47.0) L Mean Corpuscular Volume 76 FL (80-99) L 76 FL (80-99) L Mean Corpuscular Hemoglobin 24.5 PG (27.0-31.0) L 24.9 PG (27.0-31.0) L Mean Corpuscular Hemoglobin Concent 32.3 G/DL (32.0-36.0) 32.8 G/DL (32.0-36.0) Red Cell Distribution Width 15.8 % (11.6-14.8) H 16.0 % (11.6-14.8) H Platelet Count 348 K/UL (150-450) 346 K/UL (150-450) Mean Platelet Volume 5.0 FL (6.5-10.1) L 5.0 FL (6.5-10.1) L Neutrophils (%) (Auto) 70.4 % (45.0-75.0) 68.8 % (45.0-75.0) Lymphocytes (%) (Auto) 22.0 % (20.0-45.0) 21.6 % (20.0-45.0) Monocytes (%) (Auto) 6.0 % (1.0-10.0) 6.4 % (1.0-10.0) Eosinophils (%) (Auto) 0.6 % (0.0-3.0) 2.0 % (0.0-3.0) Basophils (%) (Auto) 1.0 % (0.0-2.0) 1.1 % (0.0-2.0) Sodium Level 140 MMOL/L (136-145) Potassium Level 3.6 MMOL/L (3.5-5.1) Chloride Level 106 MMOL/L (98-107) Carbon Dioxide Level 25 MMOL/L (21-32) Anion Gap 9 mmol/L (5-15) Blood Urea Nitrogen 17 mg/dL (7-18) Creatinine 0.8 MG/DL (0.55-1.30) Estimat Glomerular Filtration Rate > 60 mL/min (>60) Glucose Level 196 MG/DL (74-106) H Calcium Level 8.5 MG/DL (8.5-10.1) General Appearance: well appearing, no apparent distress, alert Head: normocephalic EENT: PERRL/EOMI, normal ENT inspection Neck: supple Respiratory: normal breath sounds, no respiratory distress Cardiovascular: normal rate Gastrointestinal: normal inspection, non tender, soft, normal bowel sounds, non -distended Rectal: deferred Genitourinary: no CVA tenderness Musculoskeletal: normal inspection, back normal Neurologic: alert, oriented x3, responsive, normal inspection Psychiatric: normal inspection, judgement/insight normal, memory normal Skin: normal inspection, normal color, no rash, warm/dry, palpation normal, well hydrated Lymphatic: normal inspection, no adenopathy Current Medications Current Medications Medications (Trade) Dose Ordered Sig/Darlene Route PRN Reason Start Time Stop Time Status Last Admin Dose Admin Acetaminophen (Tylenol) 650 mg Q4H PRN ORAL Mild Pain/Temp > 100.5 05/27/19 05:31 06/25/19 05:30 Acetaminophen/ Hydrocodone Bitart ([place] 10/325) 1 tab Q6H PRN ORAL For Pain (7-10) 05/27/19 05:33 06/02/19 05:32 05/27/19 08:34 Acetaminophen/ Hydrocodone Bitart ([place] 5/325) 1 tab Q6H PRN ORAL For Pain (4-6) 05/27/19 05:34 06/02/19 05:33 Aripiprazole (Abilify) 10 mg DAILY ORAL 05/27/19 09:00 07/10/19 12:21 05/27/19 08:34 Atenolol (Tenormin) 25 mg DAILY ORAL 05/27/19 09:00 06/25/19 12:21 05/27/19 08:35 Doxycycline Monohydrate (Doxycycline Monohydrate) 100 mg EVERY 12 HOURS ORAL 05/27/19 09:00 06/02/19 20:59 05/27/19 08:35 Glipizide (Glucotrol) 2.5 mg DAILY@0630 ORAL 05/27/19 06:30 06/26/19 06:29 05/27/19 05:56 Lisinopril (ZestriL) 10 mg DAILY ORAL 05/27/19 09:00 06/25/19 12:22 05/27/19 08:34 Lorazepam (Ativan) 1 mg TIDPRN PRN ORAL anxiety 05/27/19 05:34 06/02/19 05:33 Metformin HCl (Glucophage) 1,000 mg BID@0630,1630 ORAL 05/27/19 06:30 06/26/19 06:29 05/27/19 05:56 Metronidazole (Flagyl) 500 mg EVERY 8 HOURS ORAL 05/27/19 06:00 06/02/19 13:59 05/27/19 05:33 Vancomycin HCl (Vanco rx to dose) 1 ea DAILY PRN MISC Per rx protocol 05/27/19 09:00 06/25/19 11:44 Vancomycin HCl 1 gm/Dextrose 275 ml @ 183.708 mls/hr Q8HR IVPB 05/27/19 06:00 05/31/19 13:59 05/27/19 05:32 GI: Plan Problems: (1) Type 2 diabetes mellitus without complication (2) Bipolar depression (3) Anemia (4) Menorrhagia Plan Utox positive for amphetamines Anemia 2/2 to Menorrhagia advance diet as tolerated anemia work up OB stool r/o GI bleed monitor H&H, prn transfusions bowel regimen ppi fu labs GI procedures if emergent will follow Discussed with Dr. High. Thank you for this patient referral, we will follow. The patient was seen and examined at bedside and all new and available data was reviewed in the patients chart. I agree with the above findings, impression and plan. (Patient seen earlier today. Signature stamp does not reflect patient encounter time.). - MD Patito Kent AnhMary FREIGHT WEIGHER May 27, 2019 10:44
--- NOTE | 2019-05-27 11:42 | Infectious Diseases Prog Note ---
Assessment/Plan Assessment/Plan antibiotics : vancomycin iv, doxycycline, flagyl A 1. left facial abscess improving 2. diabetes mellitus 3. hypertension 4. leucocytosis P 1, doxycycline started 2. continue iv vancomycin in hospital 3. will follow up cultures Subjective Constitutional: Denies: fever, chills Respiratory: Denies: shortness of breath, dry cough Gastrointestinal/Abdominal: Denies: nausea, vomiting, diarrhea Musculoskeletal: Reports: pain - decreased Allergies: Coded Allergies: SUMATRIPTAN (Verified Allergy, Unknown, 11/09/15) Objective Vital Signs Last 24 Hour Vital Signs Date Time Temp Pulse Resp B/P (MAP) Pulse Ox O2 Delivery O2 Flow Rate FiO2 05/27/19 09:04 97.7 05/27/19 08:35 63 149/76 05/27/19 08:34 149/76 05/27/19 08:00 98.3 63 18 149/76 (100) 05/26/19 21:00 Room Air 05/26/19 16:10 97.7 75 20 154/88 (110) 100 05/26/19 16:00 101 05/26/19 13:08 177/106 05/26/19 12:28 81 187/120 05/26/19 12:00 97.0 76 18 177/102 (127) 100 05/26/19 12:00 85 Height (Feet): 5 Height (Inches): 5.00 Weight (Pounds): 199 HEENT: other - left forehead erythema decreased Respiratory/Chest: lungs clear Cardiovascular: normal rate, regular rhythm, no gallop/murmur Abdomen: soft, non tender Extremities: no edema Microbiology Date/Time Source Procedure Growth Status 05/26/19 05:40 Rectum Received Laboratory Tests Test 05/27/19 06:54 White Blood Count 14.1 K/UL (4.8-10.8) H Red Blood Count 3.28 M/UL (4.20-5.40) L Hemoglobin 8.2 G/DL (12.0-16.0) L Hematocrit 25.0 % (37.0-47.0) L Mean Corpuscular Volume 76 FL (80-99) L Mean Corpuscular Hemoglobin 24.9 PG (27.0-31.0) L Mean Corpuscular Hemoglobin Concent 32.8 G/DL (32.0-36.0) Red Cell Distribution Width 16.0 % (11.6-14.8) H Platelet Count 346 K/UL (150-450) Mean Platelet Volume 5.0 FL (6.5-10.1) L Neutrophils (%) (Auto) 68.8 % (45.0-75.0) Lymphocytes (%) (Auto) 21.6 % (20.0-45.0) Monocytes (%) (Auto) 6.4 % (1.0-10.0) Eosinophils (%) (Auto) 2.0 % (0.0-3.0) Basophils (%) (Auto) 1.1 % (0.0-2.0) Sodium Level 140 MMOL/L (136-145) Potassium Level 3.6 MMOL/L (3.5-5.1) Chloride Level 106 MMOL/L (98-107) Carbon Dioxide Level 25 MMOL/L (21-32) Anion Gap 9 mmol/L (5-15) Blood Urea Nitrogen 17 mg/dL (7-18) Creatinine 0.8 MG/DL (0.55-1.30) Estimat Glomerular Filtration Rate > 60 mL/min (>60) Glucose Level 196 MG/DL (74-106) H Calcium Level 8.5 MG/DL (8.5-10.1) Current Medications Medications (Trade) Dose Ordered Sig/Darlene Route PRN Reason Start Time Stop Time Status Last Admin Dose Admin Acetaminophen (Tylenol) 650 mg Q4H PRN ORAL Mild Pain/Temp > 100.5 05/27/19 05:31 06/25/19 05:30 Acetaminophen/ Hydrocodone Bitart ([place] 10/325) 1 tab Q6H PRN ORAL For Pain (7-10) 05/27/19 05:33 06/02/19 05:32 05/27/19 08:34 Acetaminophen/ Hydrocodone Bitart ([place] 5/325) 1 tab Q6H PRN ORAL For Pain (4-6) 05/27/19 05:34 06/02/19 05:33 Aripiprazole (Abilify) 10 mg DAILY ORAL 05/27/19 09:00 07/10/19 12:21 05/27/19 08:34 Atenolol (Tenormin) 25 mg DAILY ORAL 05/27/19 09:00 06/25/19 12:21 05/27/19 08:35 Doxycycline Monohydrate (Doxycycline Monohydrate) 100 mg EVERY 12 HOURS ORAL 05/27/19 09:00 06/02/19 20:59 05/27/19 08:35 Glipizide (Glucotrol) 2.5 mg DAILY@0630 ORAL 05/27/19 06:30 06/26/19 06:29 05/27/19 05:56 Lisinopril (ZestriL) 10 mg DAILY ORAL 05/27/19 09:00 06/25/19 12:22 05/27/19 08:34 Lorazepam (Ativan) 1 mg TIDPRN PRN ORAL anxiety 05/27/19 05:34 06/02/19 05:33 Metformin HCl (Glucophage) 1,000 mg BID@0630,1630 ORAL 05/27/19 06:30 06/26/19 06:29 05/27/19 05:56 Metronidazole (Flagyl) 500 mg EVERY 8 HOURS ORAL 05/27/19 06:00 06/02/19 13:59 05/27/19 05:33 Vancomycin HCl (Vanco rx to dose) 1 ea DAILY PRN MISC Per rx protocol 05/27/19 09:00 06/25/19 11:44 Vancomycin HCl 1 gm/Dextrose 275 ml @ 183.708 mls/hr Q8HR IVPB 05/27/19 06:00 05/31/19 13:59 05/27/19 05:32 Austin Collazo MD May 27, 2019 11:42
--- NOTE | 2019-05-27 11:57 | NUR ---
NURSE NOTES: patient has left without letting a staff know. patient is for discharge home and waiting for the mom, Fifi to pick her up @ 1300. All of a sudden patient is no longer in her room. She signed all the paperwork necessary and Rx was given. However, IV access still intact. The reason was not removed due to emergency purposes. personal belongings done. Able to speak with the mom and she also was trying to reach her. Attempted to call patient cp and unable to leave a msg due to mailbox is full. awaiting for a call back from a mom or the patient. Elvira SAAB made aware.
--- NOTE | 2019-05-27 14:09 | NUR ---
NURSE NOTES: WAS ABLE TO SPEAK WITH THE PATIENT AND THE MOM. PATIENT ARRIVED HOME SAFELY AND SHE WAS PICKED UP BY A FRIEND NAMED ABBEY. PATIENT STATED THAT SHE REMOVED THE IV HEPLOCK AND PLACED IT IN THE [employer]. SPOKE WITH THE MOM, JESSICA AND VOLUNTEERED TO COME BACK TO SHOW HER ARMS. PATIENT DID NOT CHECK OUT WITH ANY OF THE STAFF WHILE I WAS ASSISTING OTHER PATIENT. NOTIFIED AUSTEN SAAB AND DALIA HERNANDEZ.
--- NOTE | 2019-05-27 14:28 | NUR ---
NURSE NOTES: PATIENT CAME BACK AND ASSESSED RIGHT AC WHERE THE IV HEPLOCK WAS ON. NO IV ON THE SAID ARM AND BILATERALLY. PATIENT IS IN STABLE CONDITION. NO ACUTE RESP DISTRESS NOTED. ARM BAND WAS REMOVED.
--- NOTE | 2019-05-27 16:00 | Progress Note ---
DATE: 05/27/2019 SUBJECTIVE: This is a young female who came to the emergency room for drug abuse and was also found to have an ulcer on forehead and diabetes. The patient is currently more awake, alert, doing better. Wound Care came and saw the patient. The patient is on p.o. antibiotics. Physically, she is doing better. Hospital course was otherwise unremarkable. Discussed with the charge nurse. The patient is going to go home with p.o. antibiotics and her cultures are so far negative. The patient is going to go home with p.o. antibiotics and follow up outpatient with the [facility] or primary care. The patient was given a prescription for metformin and p.o. antibiotics. Recommended to quit drugs, quit smoking. Follow up with primary care and Wound Care as outpatient. Bang Saha M.D. DR: KAJAL JOB#: [id number] CC:
--- NOTE | 2019-05-28 12:51 | Discharge Summary ---
Discharge Summary Discharge Summary _ DATE OF ADMISSION: 05/25/2019 DATE OF DISCHARGE: 05/27/2019 DISCHARGED BY: Dr. Saha REASON FOR ADMISSION: 39 years old female with past medical history of diabetes mellitus, hypertension , noncompliant with her medication, history of crystal methamphetamine abuse, presented with complaint of dizziness and weakness. Patient apparently did not take her medications for months. Patient reported drainage from the left forehead necrotic wound for 1 week. Patient reported feeling nauseous , but no vomiting. No diarrhea. Patient reported subjective fever and chills. Upon evaluation blood pressure was significantly elevated 202/110. Patient was afebrile. Laboratory work-up revealed leukocytosis WBC 13.4 , anemia with hemoglobin 6.3 ,hematocrit 20.2, platelet count 351 . Stable electrolytes . Glucose 195. BUN 19, creatinine 0.8. EKG revealed sinus rhythm no acute ischemic changes. Urinalysis revealed +1 leukocyte esterase , + 1 glucose, no evidence of urinary tract infection. Urine toxicology screen was positive for amphetamine Physical exam revealed large indurated area about 3 cm with ulceration and necrotic care center with surrounding erythema, no active drainage. In emergency department patient received antihypertensive, started on empiric antibiotic, received 2 L of IV fluid and admitted for further management. [facility] ID specialist Dr. Collazo GI specialist Dr. [facility] surgery Dr. Graham HOSPITAL COURSE: a Patient admitted to medical surgical floor and started on empiric antibiotic as per ID specialist recommendation. Surgeon seen and evaluated patient , and performed an excisional debridement. Wound was cleaned. Dressings were applied. Wound care instructions provided to the patient in terms of how to care for the wound upon discharge. Patient remained afebrile with mild leukocytosis . Antibiotics provided as per ID specialist recommendations. Patient was on IV antibiotic while in the hospital and switched to oral doxycycline upon discharge to complete the course. GI specialist followed. Patient reported menorrhagia. Anemia was likely due to menorrhagia per GI specialist. Hemoglobin and hematocrit were closely monitored with goal to keep hemoglobin above 7. Patient undergone transfusion of total of 2 units of packed red blood cells for hemoglobin 5.9, hematocrit 19.1. Prior to discharge hemoglobin 8.2, hematocrit 25. Bowel regimen instituted. Patient started on GI prophylaxis with PPI. GI specialist recommended GI procedure only if emergent. Patient was counseled on abstinence from illicit street drugs. Patient slowly started on diet and was advanced as tolerated. Blood sugar was managed with metformin and glipizide. Sliding scale of insulin was on board as needed. Diabetic diet provided. Blood pressure was managed with beta-katelin and AUDIE inhibitor. Blood pressure stabilized. Pain management was addressed as needed. Supportive care provided. Psychiatric medications were continued. Patient clinically stabilized and was ready for discharge. FINAL DIAGNOSES: Left facial cellulitis with abscess Deep ulcerated wound left temporal area with slough, status post non- excisional debridement Hypertension with initial hypertensive urgency-resolved Leukocytosis Diabetes mellitus type 2 with hyperglycemia Amphetamine use Anemia Menorrhagia Bipolar depression DISCHARGE MEDICATIONS: See Medication Reconciliation list. DISCHARGE INSTRUCTIONS: Patient was discharged home. Follow-up with a primary care provider in 1 week. I have been assigned to dictate discharge summary for this account. I was not involved in the patient's management. Ashlyn Clifford NP May 28, 2019 12:51
== END 2019-05-27 11:20 | disposition home or self-care (01) | DRG 383 ==
LOC: EMR 21:04 → 2E 23:38 → EDBEDREQ 23:57 → 4E 05-27 04:23
PROC: 0HD1XZZ Extraction of Face Skin, External Approach (ICD-10-PCS; principal; 2019-05-26)
DX: L03.211 Cellulitis of face (principal); L02.01 Cutaneous abscess of face; J05.10 Acute epiglottitis without obstruction; F31.9 Bipolar disorder, unspecified; D50.0 Iron deficiency anemia secondary to blood loss (chronic); N92.0 Excessive and frequent menstruation with regular cycle; D72.829 Elevated white blood cell count, unspecified; I16.0 Hypertensive urgency; F15.10 Other stimulant abuse, uncomplicated; Z80.42 Family history of malignant neoplasm of prostate; E11.65 Type 2 diabetes mellitus with hyperglycemia; L98.499 Non-pressure chronic ulcer of skin of other sites with unspecified severity; Z91.14 Patient's other noncompliance with medication regimen; F17.210 Nicotine dependence, cigarettes, uncomplicated; J03.90 Acute tonsillitis, unspecified; Z79.84 Long term (current) use of oral hypoglycemic drugs
CPT/HCPCS: 36415; 80048; 80307; 81001; 85007; 85025; 86850; 86900; 86901; 86920; 87081; 93005; 96361; 96365; 96366; 96368; 96375; 99291; J7030